=== PATIENT | female | born 1950 | race American Indian/Alaskan Native ===

== ENCOUNTER 2018-04-26 13:06 | Outpatient (CLI) | payer MEDICARE ==
--- NOTE | 2018-04-26 15:35 | Mammography Report ---
BILATERAL DIGITAL SCREENING MAMMOGRAM with CAD: 04/26/18 13:06:00 CLINICAL: Routine screening. COMPARISON:None available. FINDINGS: The breasts are heterogeneously dense, which may obscure small masses. No mass, architectural distortion or suspicious calcifications. IMPRESSION: No mammographic evidence of malignancy. BI-RADS CATEGORY: 1 - - Negative RECOMMENDATION: Routine mammographic screening in one year. COMMENT: Patient follow-up letters are generated by our [employer] application.
== END 2018-04-26 13:07 | disposition home or self-care (01) ==
LOC: MAMMO 13:06
PROVIDERS: ATTEND Internal Medicine
DX: Z12.31 Encounter for screening mammogram for malignant neoplasm of breast (principal)
CPT/HCPCS: 77067

== ENCOUNTER 2018-12-14 21:10 | Inpatient (IN) | payer MEDICARE ==
[2018-12-14] MEDS ORDERED: HumuLIN R IV ONE (21:27)
--- NOTE | 2018-12-14 21:34 | Emergency Department Report ---
- General Chief complaint: Hyperglycemia Stated complaint: HIGH BLOOD SUGAR Time Seen by Provider: 12/14/18 21:21 Source: patient, family, EMS Mode of arrival: Stretcher Limitations: Physical Limitation - History of Present Illness Initial comments: Ms. Godinez is a 68 yo female who presents with lethargy and poor appetite for one week. Hx of DM. Has not taken medications in one month. LIve in [facility] is bedside. He has noticed productive cough and increased beer imbibing. She denies pain. MD Complaint: generalized weakness, lack of energy -: Gradual, week(s) (1) Location: generalized Severity: severe Consistency: constant Improves with: none Worsens with: none Associated Symptoms: loss of appetite - Related Data Home Medications Medication Instructions Recorded Confirmed Last Taken No Known Home Medications [No 12/14/18 12/14/18 Unknown Reported Home Medications] Allergies Allergy/AdvReac Type Severity Reaction Status Date / Time No Known Allergies Allergy Verified 12/14/18 21:27 ED Review of Systems ROS: Stated complaint: HIGH BLOOD SUGAR Other details as noted in HPI Comment: All other systems reviewed and negative Constitutional: malaise Respiratory: cough ED Past Medical Hx - Past Medical History Previous Medical History?: Yes Hx Diabetes: Yes - Surgical History Past Surgical History?: No - Social History Smoking Status: Never Smoker Substance Use Type: Alcohol Other Social History: retired, - Medications Home Medications: Home Medications Medication Instructions Recorded Confirmed Last Taken Type No Known Home Medications [No 12/14/18 12/14/18 Unknown History Reported Home Medications] ED Physical Exam - General Limitations: Physical Limitation General appearance: lethargic (awake, slow to respond), other (kussmaul respirations evident) - Head Head exam: Present: atraumatic, normocephalic - Eye Eye exam: Present: normal appearance, PERRL - ENT ENT exam: Present: mucous membranes dry - Neck Neck exam: Present: normal inspection, full ROM - Respiratory Respiratory exam: Present: respiratory distress. Absent: wheezes, rales, rhonchi - Cardiovascular Cardiovascular Exam: Present: normal rhythm, tachycardia, normal heart sounds. Absent: systolic murmur, diastolic murmur, rubs, gallop - GI/Abdominal GI/Abdominal exam: Present: soft, normal bowel sounds. Absent: distended, tenderness, guarding, rebound - Extremities Exam Extremities exam: Present: normal inspection - Back Exam Back exam: Present: normal inspection - Neurological Exam Neurological exam: Present: oriented X3 - Psychiatric Psychiatric exam: Present: normal affect, normal mood - Skin Skin exam: Present: warm, dry, intact, normal color. Absent: rash ED Course Vital Signs 12/14/18 12/14/18 12/14/18 21:15 21:18 21:30 Pulse Rate 108 H 110 H 109 H Respiratory 18 20 21 Rate Blood Pressure 157/64 137/87 O2 Sat by Pulse 100 Oximetry ED Medical Decision Making - Lab Data Result diagrams: 12/14/18 21:26 12/14/18 21:26 - EKG Data 12/14/18 22:06 EKG obtained 2146 Sinus tachycardia rate 115 beats a minute normal axis severely prolonged QT interval no significant ST elevation - Radiology Data Radiology results: report reviewed AP portable chest one view according to radiology impression no acute process - Medical Decision Making Ms. Godinez presents with severe DKA complicated by medication noncompliance and alcohol use. Concern for hypokalemia and severely prolonged QT interval. I discussed case with hospitalist. Hospitalist physician Dr. Ray recommended potassium IV administration and by mouth potassium administration prior to initiation insulin drip Admitted in fair condition. Critical Care Time: Yes Critical care time in (mins) excluding proc time.: 40 Critical care attestation.: If time is entered above; I have spent that time in minutes in the direct care of this critically ill patient, excluding procedure time. 40 minutes of critical care time excluding procedures were used in the care of the patient. I came to the bedside immediately upon arrival. I consulted with parul at the bedside. I formed treatment plan with nurse at the bedside. Patient required multiple assessments and interventions. I reviewed the electronic medical record. I spoke with consultants involved in the care of the patient. ED Disposition Clinical Impression: Diabetic ketoacidosis, Hypokalemia, Prolonged QT interval Disposition: OP ADMIT IP TO THIS HOSP Is pt being admited?: Yes Does the pt Need Aspirin: No Condition: Stable
[2018-12-14] MEDS ORDERED: NACL 0.9% 1000 ML 1,000 ML IV ONE ×3 (21:35→22:47)
[2018-12-14 21:37] LABS: Basophils # (Auto) 0.1 K/mm3 (0.0-0.1); Basophils % (Auto) 0.5 % (0.0-1.8); Hematocrit 47.9 % (30.3-42.9); Hemoglobin 15.4 gm/dl (10.1-14.3); Lymphocytes # (Auto) 0.4 K/mm3 (1.2-5.4); Lymphocytes % (Auto) 2.6 % (13.4-35.0); Mean Corpuscular HGB Conc 32 % (30-34); Mean Corpuscular Volume 100 fl (79-97); Monocytes # (Auto) 1.5 K/mm3 (0.0-0.8); Monocytes % (Auto) 9.1 % (0.0-7.3); Platelet Count 238 K/mm3 (140-440); Red Blood Count 4.79 M/mm3 (3.65-5.03); Red Cell Distribution Width 13.9 % (13.2-15.2)
[2018-12-14 21:57] LABS: Calcium 10.1 mg/dL (8.4-10.2)
--- NOTE | 2018-12-14 21:59 | XRay Report ---
PROCEDURE: XR CHEST 1V AP TECHNIQUE: Chest radiograph single view. HISTORY: dyspnea COMPARISONS: None . FINDINGS: Heart: Normal. Mediastinum/Vessels: Normal. Lungs/Pleural space: Normal. Bony thorax: No acute osseous abnormality. Life support devices: None. IMPRESSION: No acute cardiopulmonary abnormality. This document is electronically signed by Ramiro Higuera MD., Dec 14 2018 09:57:12 PM ET
[2018-12-14] MEDS ORDERED: HumuLIN R 100 UNITS in NACL 0.9% 99 ML IV SCH (22:00)
[2018-12-14] MEDS ORDERED: K-DUR PO ONE (22:06)
[2018-12-14] MEDS: KCL 10MEQ/100ML 10 MEQ/100 ML BAG IV SCH ×2 (22:27→22:30)
[2018-12-14 22:34] LABS: Alanine Aminotransferase 23 units/L (7-56); Albumin 4.1 g/dL (3.9-5)
[2018-12-14 22:40] LABS: Bilirubin,Direct < 0.2 mg/dL (0-0.2)
[2018-12-14] MEDS ORDERED: SODIUM CHLORIDE FLUSH SYRINGE 10 ML IV PRN (22:46)
[2018-12-14] MEDS ORDERED: MORPHINE IV PRN (22:46)
[2018-12-14] MEDS ORDERED: REGLAN IV PRN ×2 (22:46→22:57)
[2018-12-14] MEDS ORDERED: ZOSYN/NS 4.5GM/100ML 4.5 GM/100 ML VIAL IV ONE (22:46)
[2018-12-14] MEDS ORDERED: TYLENOL PO PRN (22:46)
--- NOTE | 2018-12-14 23:41 | History and Physical Report ---
History of Present Illness Date of examination: 12/14/18 Date of admission: 12/14/18 22:46 Chief complaint: Poor appetite and generalized weakness History of present illness: Patient is a 68 year old -[place] female with history of DM2 and HTN with medication noncompliance who presented to the ED on account of 4 days history of poor appetite with generalized weakness. She denies abdominal pain, constipation, diarrhea, nausea, vomiting, dysuria or frequency. No chest pain, shortness of breath, palpitation, sore throat, runny nose or congestion, leg sw elling, orthopnea or PND. No headaches, lightheadedness, syncope or loss of consciousness. Patient stated that she stopped taking her diabetic medication about a month ago because her sugar went down. He also stopped taking her blood pressure medication about 2 weeks ago. Past History Past Medical History: diabetes, hypertension, other (LT breast cyst) Past Surgical History: tonsillectomy, Other (LT breast cyst removal ) Social history: other (patient has a remote history of cigarette smoking. She quit 30 years ago. She admits to occasional alcohol use but denies illicit drug use) Family history: no significant family history (reviewed and noncontributory) Medications and Allergies Allergies Allergy/AdvReac Type Severity Reaction Status Date / Time No Known Allergies Allergy Verified 12/14/18 21:27 Home Medications Medication Instructions Recorded Confirmed Last Taken Type No Known Home Medications [No 12/14/18 12/14/18 Unknown History Reported Home Medications] Active Meds: Active Medications Acetaminophen (Tylenol) 650 mg PO Q4H PRN PRN Reason: Pain MILD(1-3)/Fever >100.5/VILLALOBOS Enoxaparin Sodium (Lovenox) 40 mg SUB-Q QDAY EDGAR Famotidine (Pepcid) 10 mg IV BID EDGAR Potassium Chloride (Kcl 10meq/100ml) 10 meq in 100 mls @ 100 mls/hr IV Q1H EDGAR Stop: 12/15/18 02:59 Last Admin: 12/14/18 22:30 Dose: Not Given Documented by: Sodium Chloride (Nacl 0.9% 1000 Ml) 1,000 mls @ 999 mls/hr IV BOLUS ONE Stop: 12/14/18 23:47 Last Admin: 12/14/18 23:14 Dose: 999 mls/hr Documented by: Metoclopramide HCl (Reglan) 5 mg IV Q6H PRN PRN Reason: Nausea And Vomiting Morphine Sulfate (Morphine) 2 mg IV Q4H PRN PRN Reason: Pain, Moderate (4-6) Sodium Chloride (Sodium Chloride Flush Syringe 10 Ml) 10 ml IV BID EDGAR Sodium Chloride (Sodium Chloride Flush Syringe 10 Ml) 10 ml IV PRN PRN PRN Reason: LINE FLUSH Review of Systems All systems: negative (except as documented in the HPI, all other systems were reviewed and negative) Exam - Constitutional Vitals: Temp Pulse Resp BP Pulse Ox 107 H 22 138/106 100 12/14/18 23:30 12/14/18 23:30 12/14/18 23:30 12/14/18 21:15 General appearance: Present: no acute distress, cachectic, other (ill-looking) - EENT Eyes: Present: PERRL, EOM intact ENT: hearing intact, clear oral mucosa - Neck Neck: Present: supple, normal ROM - Respiratory Respiratory effort: normal Respiratory: bilateral: CTA - Cardiovascular Rhythm: regular (with tachycardia) Heart Sounds: Present: S1 & S2. Absent: rub, click - Extremities Extremities: pulses symmetrical, No edema Peripheral Pulses: within normal limits - Abdominal General gastrointestinal: Present: soft, non-tender, non-distended, normal bowel sounds Female genitourinary: Present: deferred - Integumentary Integumentary: Present: clear, warm, dry - Musculoskeletal Musculoskeletal: generalized weakness - Psychiatric Psychiatric: appropriate mood/affect, intact judgment & insight - Neurologic Neurologic: CNII-XII intact, moves all extremities Results - Labs CBC & Chem 7: 12/14/18 21:26 12/14/18 21:26 Labs: Laboratory Last Values WBC 16.1 K/mm3 (4.5-11.0) H 12/14/18 21:26 RBC 4.79 M/mm3 (3.65-5.03) 12/14/18 21:26 Hgb 15.4 gm/dl (10.1-14.3) H 12/14/18 21:26 Hct 47.9 % (30.3-42.9) H 12/14/18 21:26 MCV 100 fl (79-97) H 12/14/18 21:26 MCH 32 pg (28-32) 12/14/18 21:26 MCHC 32 % (30-34) 12/14/18 21:26 RDW 13.9 % (13.2-15.2) 12/14/18 21:26 Plt Count 238 K/mm3 (140-440) 12/14/18 21:26 Lymph % (Auto) 2.6 % (13.4-35.0) L 12/14/18 21:26 [place]ount % (Auto) 9.1 % (0.0-7.3) H 12/14/18 21:26 Eos % (Auto) 0.0 % (0.0-4.3) 12/14/18 21:26 Baso % (Auto) 0.5 % (0.0-1.8) 12/14/18 21:26 Lymph # 0.4 K/mm3 (1.2-5.4) L 12/14/18 21:26 Blount # 1.5 K/mm3 (0.0-0.8) H 12/14/18 21:26 Eos # 0.0 K/mm3 (0.0-0.4) 12/14/18 21:26 Baso # 0.1 K/mm3 (0.0-0.1) 12/14/18 21:26 Seg Neutrophils % 87.8 % (40.0-70.0) H 12/14/18 21: Seg Neutrophils # 14.1 K/mm3 (1.8-7.7) H 12/14/18 21:26 VBG pH 7.041 (7.320-7.420) L* 12/14/18 21:28 Sodium 136 mmol/L (137-145) L 12/14/18 21:26 Potassium 2.9 mmol/L (3.6-5.0) L* 12/14/18 21:26 Chloride 86.4 mmol/L (98-107) L 12/14/18 21:26 Carbon Dioxide 5 mmol/L (22-30) L* 12/14/18 21:26 48 mmol/L 12/14/18 21:26 BUN 15 mg/dL (7-17) 12/14/18 21:26 1.2 mg/dL (0.7-1.2) 12/14/18 21:26 Estimated GFR 54 ml/min 12/14/18 21:26 13 % 12/14/18 21:26 Glucose 603 mg/dL (65-100) H* 12/14/18 21:26 POC Glucose 460 (70-105) H 12/14/18 21:30 Lactic Acid 5.10 mmol/L (0.7-2.0) H* 12/14/18 21:46 Calcium 10.1 mg/dL (8.4-10.2) 12/14/18 21:26 Phosphorus 5.00 mg/dL (2.5-4.5) H 12/14/18 21:26 Magnesium 2.10 mg/dL (1.7-2.3) 12/14/18 21:26 0.40 mg/dL (0.1-1.2) 12/14/18 21:26 < 0.2 mg/dL (0-0.2) 12/14/18 21:26 0.2 mg/dL 12/14/18 21:26 AST 28 units/L (5-40) 12/14/18 21:26 ALT 23 units/L (7-56) 12/14/18 21:26 152 units/L (35-129) H 12/14/18 21:26 < 0.010 ng/mL (0.00-0.029) 12/14/18 21:26 7.3 g/dL (6.3-8.2) 12/14/18 21:26 4.1 g/dL (3.9-5) 12/14/18 21:26 1.3 % 12/14/18 21:26 32 units/L (13-60) 12/14/18 21:26 Plasma/Serum Alcohol < 0.01 % (0-0.07) 12/14/18 21:26 Assessment and Plan Assessment and plan: DKA in type 2 DM -Admit to the ICU on DKA protocol -Hemoglobin A1c level pending SIRS with lactic acidosis -Exact source of infection unknown -Urinalysis, urine and blood cultures pending -On empiric IV antibiotic with Rocephin Hypokalemia -On repletion, will monitor level Hyperphosphatemia -On IV fluid, will monitor level HTN -Uncontrolled -On antihypertensives, adjust as needed Severe malnutrition evidenced by poor oral intake and BMI of 15.8 -Dietitian consulted Medication noncompliance -Patient counseled DVT prophylaxis with Lovenox and GI prophylaxis with famotidine I spent 45 minutes providing critical care to this seriously ill patient who requires frequent reassessments of her metabolic profile.
[2018-12-14] MEDS ORDERED: D50W (25GM) Syringe IV PRN (23:44)
[2018-12-15] MEDS: KCL 10MEQ/100ML 10 MEQ/100 ML BAG IV SCH ×6 (00:14→23:58)
[2018-12-15] MEDS ORDERED: APRESOLINE IV PRN (00:21)
[2018-12-15 00:34] LABS: Calcium 8.8 mg/dL (8.4-10.2)
[2018-12-15] MEDS: LOPRESSOR PO SCH ×3 (01:31→21:15)
[2018-12-15 05:50] LABS: Basophils # (Auto) 0.1 K/mm3 (0.0-0.1); Basophils % (Auto) 0.8 % (0.0-1.8); Hematocrit 39.9 % (30.3-42.9); Lymphocytes % (Auto) 6.7 % (13.4-35.0); Mean Corpuscular HGB Conc 33 % (30-34); Mean Corpuscular Volume 98 fl (79-97); Monocytes # (Auto) 1.3 K/mm3 (0.0-0.8); Monocytes % (Auto) 8.4 % (0.0-7.3); Platelet Count 170 K/mm3 (140-440); Red Blood Count 4.07 M/mm3 (3.65-5.03)
[2018-12-15 06:10] LABS: BUN/Creatinine Ratio 12; Blood Urea Nitrogen 12 mg/dL (7-17); Calcium 8.7 mg/dL (8.4-10.2); Hemolysis Index 7
[2018-12-15] MEDS ORDERED: HumuLIN R 100 UNITS in NACL 0.9% 99 ML IV SCH ×2 (07:00→13:00)
[2018-12-15] MEDS ORDERED: NACL 0.9% 1000 ML 1,000 ML IV SCH (07:00)
--- NOTE | 2018-12-15 07:45 | Progress Note ---
Assessment and Plan Assessment and plan: Patient is a 68 yo woman with a history of DM2 and hypertension who presented to [facility] ED with generalized weakness. DKA in type 2 DM -Admit to the ICU on DKA protocol -Hemoglobin A1c level-->17.0 Uncontrolled type 2 DM, now IDDM -report of not taking DM for weeks -counseling on compliance SIRS without organ dysfunction, poa -Exact source of infection unknown -Urinalysis, urine and blood cultures pending -On empiric IV antibiotic with Rocephin Hypokalemia -Replete, will monitor level closely Hypophosphatemia -On IV fluids, will monitor level HTN -Uncontrolled -On antihypertensives, adjust as needed Severe malnutrition evidenced by poor oral intake and BMI of 15.2 -Dietitian consulted Medication noncompliance -Patient counseled Metabolic acidosis -treat the DKA DVT prophylaxis with Lovenox and GI prophylaxis with famotidine CCT 31 minutes History Interval history: Patient was seen and examined. Follow-up on current diagnosis on DKA. No overnight events reported to me. Patient denies any chest pain, shortness too th, nausea/vomiting or severe headaches. Imaging, nursing note, chart, labs and old chart reviewed. Discussed with patient. Hospitalist Physical - Physical exam Narrative exam: Gen: WDWN, NAD, Awake, Alert, Orientated HEENT: NCAT, EOMI, PERRL, OP Clear Neck: supple, no adenopathy, no thyromegaly, no JVD CVS/Heart: RRR, normal S1S2, pulses present bilaterally Chest/Lungs: CTA B, Symmetrical chest expansion, good air entry bilaterally GI/Abdomen: soft, NTND, good bowel sounds, no guarding or rebound /Bladder: no suprapubic tenderness, no CVA or paraspinal tenderness Extermity/Skin: no c/c/e, no obvious rash MSK: FROM x 4 Neuro: CN 2-12 grossly intact, no new focal deficits Psych: calm - Constitutional Vitals: Temp Pulse Resp BP Pulse Ox 97.5 F L 91 H 15 121/71 100 12/15/18 02:56 12/15/18 05:00 12/15/18 05:00 12/15/18 05:00 12/15/18 05:00 General appearance: Present: no acute distress, cachectic, other (ill-looking) Results - Labs CBC & Chem 7: 12/15/18 05:28 12/15/18 05:28 Labs: Laboratory Last Values WBC 15.2 K/mm3 (4.5-11.0) H 12/15/18 05:28 RBC 4.07 M/mm3 (3.65-5.03) 12/15/18 05:28 Hgb 13.0 gm/dl (10.1-14.3) 12/15/18 05:28 Hct 39.9 % (30.3-42.9) D 12/15/18 05:28 MCV 98 fl (79-97) H 12/15/18 05:28 MCH 32 pg (28-32) 12/15/18 05:28 MCHC 33 % (30-34) 12/15/18 05:28 RDW 13.0 % (13.2-15.2) L 12/15/18 05:28 Plt Count 170 K/mm3 (140-440) 12/15/18 05:28 Lymph % (Auto) 6.7 % (13.4-35.0) L 12/15/18 05:28 [place] % (Auto) 8.4 % (0.0-7.3) H 12/15/18 05:28 Eos % (Auto) 0.0 % (0.0-4.3) 12/15/18 05:28 Baso % (Auto) 0.8 % (0.0-1.8) 12/15/18 05:28 Lymph # 1.0 K/mm3 (1.2-5.4) L 12/15/18 05:28 [place] # 1.3 K/mm3 (0.0-0.8) H 12/15/18 05:28 Eos # 0.0 K/mm3 (0.0-0.4) 12/15/18 05:28 Baso # 0.1 K/mm3 (0.0-0.1) 12/15/18 05:28 Seg Neutrophils % 84.1 % (40.0-70.0) H 12/15/18 05:28 Seg Neutrophils # 12.8 K/mm3 (1.8-7.7) H 12/15/18 05:28 VBG pH 7.041 (7.320-7.420) L* 12/14/18 21:28 Sodium 140 mmol/L (137-145) 12/15/18 05:28 Potassium 3.6 mmol/L (3.6-5.0) D 12/15/18 05:28 Chloride 103.9 mmol/L (98-107) 12/15/18 05:28 Carbon Dioxide 8 mmol/L (22-30) L* 12/15/18 05:28 32 mmol/L 12/15/18 05:28 BUN 12 mg/dL (7-17) 12/15/18 05:28 1.0 mg/dL (0.7-1.2) 12/15/18 05:28 Estimated GFR > 60 ml/min 12/15/18 05:28 12 % 12/15/18 05:28 Glucose 390 mg/dL (65-100) H 12/15/18 05:28 POC Glucose 400 (70-105) H 12/15/18 06:14 17.0 % (4-6) H 12/15/18 05:28 Lactic Acid 2.00 mmol/L (0.7-2.0) 12/15/18 05:28 Calcium 8.7 mg/dL (8.4-10.2) 12/15/18 05:28 Phosphorus 1.50 mg/dL (2.5-4.5) L D 12/15/18 05:28 Magnesium 2.10 mg/dL (1.7-2.3) 12/14/18 21:26 0.40 mg/dL (0.1-1.2) 12/14/18 21:26 < 0.2 mg/dL (0-0.2) 12/14/18 21:26 0.2 mg/dL 12/14/18 21:26 AST 28 units/L (5-40) 12/14/18 21:26 ALT 23 units/L (7-56) 12/14/18 21:26 152 units/L (35-129) H 12/14/18 21:26 < 0.010 ng/mL (0.00-0.029) 12/14/18 21:26 7.3 g/dL (6.3-8.2) 12/14/18 21:26 4.1 g/dL (3.9-5) 12/14/18 21:26 1.3 % 12/14/18 21:26 32 units/L (13-60) 12/14/18 21:26 Plasma/Serum Alcohol < 0.01 % (0-0.07) 12/14/18 21:26 Active Medications - Current Medications Current Medications: Generic Name Dose Route Start Last Admin Trade Name Freq PRN Reason Stop Dose Admin Acetaminophen 650 mg 12/14/18 22:46 Tylenol PO Q4H PRN Pain MILD(1-3)/Fever >100.5/VILLALOBOS Dextrose 0 ml 12/14/18 23:44 D50w (25gm) Syringe IV PRN PRN Hypoglycemia Enoxaparin Sodium 40 mg 12/15/18 10:00 Lovenox SUB-Q QDAY [facility] Famotidine 10 mg 12/15/18 10:00 Pepcid IV BID EDGAR Hydralazine HCl 10 mg 12/15/18 00:21 Apresoline IV Q4HR PRN Blood Pressure Ceftriaxone Sodium 1 gm in 50 mls @ 100 mls/hr 12/15/18 10:00 Rocephin/Ns 1 Gm/50 Ml IV Q24HR EDGAR Protocol Insulin Human Regular 100 100 mls @ 1 mls/hr 12/15/18 07:00 units/ Sodium Chloride IV TITR EDGAR Protocol 1 UNITS/HR Sodium Chloride 1,000 mls @ 150 mls/hr 12/15/18 07:00 12/15/18 07:26 Nacl 0.9% 1000 Ml IV 150 mls/hr DIRECT EDGAR Administration Metoclopramide HCl 5 mg 12/14/18 22:57 Reglan IV Q6H PRN Nausea And Vomiting Metoprolol Tartrate 25 mg 12/15/18 01:00 12/15/18 01:31 Lopressor PO Not Given BID EDGAR Morphine Sulfate 2 mg 12/14/18 22:46 Morphine IV Q4H PRN Pain, Moderate (4-6) Sodium Chloride 10 ml 12/15/18 10:00 Sodium Chloride Flush Syringe 10 Ml IV BID EDGAR Sodium Chloride 10 ml 12/14/18 22:46 Sodium Chloride Flush Syringe 10 Ml IV PRN PRN LINE FLUSH
[2018-12-15 07:54] LABS: BUN/Creatinine Ratio 12; Blood Urea Nitrogen 11 mg/dL (7-17); Calcium 8.5 mg/dL (8.4-10.2); Hemolysis Index 14
[2018-12-15] MEDS: PEPCID IV SCH ×2 (10:20→21:45)
[2018-12-15] MEDS: SODIUM CHLORIDE FLUSH SYRINGE 10 ML IV SCH ×2 (10:20→21:45)
[2018-12-15] MEDS: LOVENOX SUB-Q SCH (10:55)
[2018-12-15] MEDS: ROCEPHIN/NS 1 GM/50 ML 1 GM/50 ML BAG IV SCH (10:55)
[2018-12-15] MEDS ORDERED: D50W (25GM) Syringe IV PRN ×2 (12:01→23:41)
[2018-12-15] MEDS ORDERED: D5W/0.45% NACL/KCL 20 MEQ 20 MEQ/1,000 ML BAG IV SCH (13:00)
[2018-12-15 13:34] LABS: BUN/Creatinine Ratio 11; Blood Urea Nitrogen 10 mg/dL (7-17); Calcium 8.8 mg/dL (8.4-10.2); Hemolysis Index 26
--- NOTE | 2018-12-15 15:12 | Consultation ---
History of Present Illness - Reason for Consult Consult date: 12/15/18 DKA Requesting physician: ELISEO RENEE - History of Present Illness 68 y/o female with known diabetes presents with generalized weakness. Patient was found to be in DKA with anion Gap in the 40's. Started on insulin drip and admitted to ICU. Kept NPO. Today, patient feels somewhat better. Admits to not taking her insulin as she should. No family at bedside. Remainder is negative. Past History Past Medical History: diabetes, hypertension, other (LT breast cyst) Past Surgical History: tonsillectomy, Other (LT breast cyst removal ) Social history: other (patient has a remote history of cigarette smoking. She quit 30 years ago. She admits to occasional alcohol use but denies illicit drug use) Family history: no significant family history (reviewed and noncontributory) Medications and Allergies Allergies Allergy/AdvReac Type Severity Reaction Status Date / Time No Known Allergies Allergy Verified 12/14/18 21:27 Home Medications Medication Instructions Recorded Confirmed Last Taken Type No Known Home Medications [No 12/14/18 12/14/18 Unknown History Reported Home Medications] Active Meds: Active Medications Acetaminophen (Tylenol) 650 mg PO Q4H PRN PRN Reason: Pain MILD(1-3)/Fever >100.5/VILLALOBOS Dextrose (D50w (25gm) Syringe) 0 ml IV PRN PRN PRN Reason: Hypoglycemia Enoxaparin Sodium (Lovenox) 40 mg SUB-Q QDAY [facility] Last Admin: 12/15/18 10:55 Dose: 40 mg Documented by: Famotidine (Pepcid) 10 mg IV BID [facility] Last Admin: 12/15/18 10:20 Dose: 10 mg Documented by: Hydralazine HCl (Apresoline) 10 mg IV Q4HR PRN PRN Reason: Blood Pressure Ceftriaxone Sodium (Rocephin/Ns 1 Gm/50 Ml) 1 gm in 50 mls @ 100 mls/hr IV Q24HR [facility]; Protocol Last Admin: 12/15/18 10:55 Dose: 100 mls/hr Documented by: Insulin Human Regular 100 (units/ Sodium Chloride) 100 mls @ 1 mls/hr IV TITR [facility]; Protocol Potassium Chloride/Dextrose/Sod Cl (D5w/0.45% Nacl/Kcl 20 Meq) 20 meq in 1,000 mls @ 125 mls/hr IV DIRECT [facility] Metoclopramide HCl (Reglan) 5 mg IV Q6H PRN PRN Reason: Nausea And Vomiting Metoprolol Tartrate (Lopressor) 25 mg PO BID [facility] Last Admin: 12/15/18 10:15 Dose: Not Given Documented by: Morphine Sulfate (Morphine) 2 mg IV Q4H PRN PRN Reason: Pain, Moderate (4-6) Sodium Chloride (Sodium Chloride Flush Syringe 10 Ml) 10 ml IV BID [facility] Last Admin: 12/15/18 10:20 Dose: 10 ml Documented by: Sodium Chloride (Sodium Chloride Flush Syringe 10 Ml) 10 ml IV PRN PRN PRN Reason: LINE FLUSH Review of Systems All systems: negative Exam - Constitutional Vitals: Temp Pulse Resp BP Pulse Ox 97.8 F 100 H 15 110/69 100 12/15/18 12:00 12/15/18 10:15 12/15/18 05:00 12/15/18 10:15 12/15/18 05:00 General appearance: Present: no acute distress, cachectic, disheveled - EENT Eyes: Present: PERRL, EOM intact ENT: hearing intact - Neck Neck: Present: supple, normal ROM - Respiratory Respiratory effort: normal Respiratory: bilateral: CTA - Cardiovascular Rhythm: regular Heart Sounds: Present: S1 & S2 - Extremities Extremities: no ischemia, pulses intact, pulses symmetrical - Abdominal General gastrointestinal: Present: soft, non-tender - Rectal Rectal Exam: deferred - Integumentary Integumentary: Present: dry Results - Labs CBC & Chem 7: 12/15/18 05:28 12/16/18 04:51 Labs: Abnormal lab results 12/14/18 12/14/18 12/14/18 Range/Units 21:26 21:26 21:26 WBC 16.1 H (4.5-11.0) K/mm3 Hgb 15.4 H (10.1-14.3) gm/dl Hct 47.9 H (30.3-42.9) % MCV 100 H (79-97) fl RDW (13.2-15.2) % Lymph % (Auto) 2.6 L (13.4-35.0) % [place] % (Auto) 9.1 H (0.0-7.3) % Lymph # 0.4 L (1.2-5.4) K/mm3 [place] # 1.5 H (0.0-0.8) K/mm3 Seg Neutrophils % 87.8 H (40.0-70.0) % Seg Neutrophils # 14.1 H (1.8-7.7) K/mm3 VBG pH (7.320-7.420) Sodium 136 L (137-145) mmol/L Potassium 2.9 L* (3.6-5.0) mmol/L Chloride 86.4 L (98-107) mmol/L Carbon Dioxide 5 L* (22-30) mmol/L Glucose 603 H* (65-100) mg/dL POC Glucose (70-105) Hemoglobin A1c (4-6) % Lactic Acid (0.7-2.0) mmol/L Phosphorus 5.00 H (2.5-4.5) mg/dL Magnesium (1.7-2.3) mg/dL Alkaline Phosphatase 152 H (35-129) units/L 12/14/18 12/14/18 12/14/18 Range/Units 21:28 21:30 21:46 WBC (4.5-11.0) K/mm3 Hgb (10.1-14.3) gm/dl Hct (30.3-42.9) % MCV (79-97) fl RDW (13.2-15.2) % Lymph % (Auto) (13.4-35.0) % [place] % (Auto) (0.0-7.3) % Lymph # (1.2-5.4) K/mm3 [place] # (0.0-0.8) K/mm3 Seg Neutrophils % (40.0-70.0) % Seg Neutrophils # (1.8-7.7) K/mm3 VBG pH 7.041 L* (7.320-7.420) Sodium (137-145) mmol/L Potassium (3.6-5.0) mmol/L Chloride (98-107) mmol/L Carbon Dioxide (22-30) mmol/L Glucose (65-100) mg/dL POC Glucose 460 H (70-105) Hemoglobin A1c (4-6) % Lactic Acid 5.10 H* (0.7-2.0) mmol/L Phosphorus (2.5-4.5) mg/dL Magnesium (1.7-2.3) mg/dL Alkaline Phosphatase (35-129) units/L 12/14/18 12/15/18 12/15/18 Range/Units 23:04 00:06 00:11 WBC (4.5-11.0) K/mm3 Hgb (10.1-14.3) gm/dl Hct (30.3-42.9) % MCV (79-97) fl RDW (13.2-15.2) % Lymph % (Auto) (13.4-35.0) % [place] % (Auto) (0.0-7.3) % Lymph # (1.2-5.4) K/mm3 [place] # (0.0-0.8) K/mm3 Seg Neutrophils % (40.0-70.0) % Seg Neutrophils # (1.8-7.7) K/mm3 VBG pH (7.320-7.420) Sodium (137-145) mmol/L Potassium 2.8 L* (3.6-5.0) mmol/L Chloride 94.6 L (98-107) mmol/L Carbon Dioxide 6 L* (22-30) mmol/L Glucose 482 H (65-100) mg/dL POC Glucose 405 H (70-105) Hemoglobin A1c (4-6) % Lactic Acid 3.90 H* (0.7-2.0) mmol/L Phosphorus (2.5-4.5) mg/dL Magnesium (1.7-2.3) mg/dL Alkaline Phosphatase (35-129) units/L 12/15/18 12/15/18 12/15/18 Range/Units 01:00 02:27 04:12 WBC (4.5-11.0) K/mm3 Hgb (10.1-14.3) gm/dl Hct (30.3-42.9) % MCV (79-97) fl RDW (13.2-15.2) % Lymph % (Auto) (13.4-35.0) % [place] % (Auto) (0.0-7.3) % Lymph # (1.2-5.4) K/mm3 [place] # (0.0-0.8) K/mm3 Seg Neutrophils % (40.0-70.0) % Seg Neutrophils # (1.8-7.7) K/mm3 VBG pH (7.320-7.420) Sodium (137-145) mmol/L Potassium (3.6-5.0) mmol/L Chloride (98-107) mmol/L Carbon Dioxide (22-30) mmol/L Glucose (65-100) mg/dL POC Glucose 432 H 331 H 339 H (70-105) Hemoglobin A1c (4-6) % Lactic Acid (0.7-2.0) mmol/L Phosphorus (2.5-4.5) mg/dL Magnesium (1.7-2.3) mg/dL Alkaline Phosphatase (35-129) units/L 12/15/18 12/15/18 12/15/18 Range/Units 04:59 05:28 05:28 WBC 15.2 H (4.5-11.0) K/mm3 Hgb (10.1-14.3) gm/dl Hct (30.3-42.9) % MCV 98 H (79-97) fl RDW 13.0 L (13.2-15.2) % Lymph % (Auto) 6.7 L (13.4-35.0) % [place] % (Auto) 8.4 H (0.0-7.3) % Lymph # 1.0 L (1.2-5.4) K/mm3 [place] # 1.3 H (0.0-0.8) K/mm3 Seg Neutrophils % 84.1 H (40.0-70.0) % Seg Neutrophils # 12.8 H (1.8-7.7) K/mm3 VBG pH (7.320-7.420) Sodium (137-145) mmol/L Potassium (3.6-5.0) mmol/L Chloride (98-107) mmol/L Carbon Dioxide (22-30) mmol/L Glucose (65-100) mg/dL POC Glucose 367 H (70-105) Hemoglobin A1c (4-6) % Lactic Acid (0.7-2.0) mmol/L Phosphorus 1.50 L D (2.5-4.5) mg/dL Magnesium (1.7-2.3) mg/dL Alkaline Phosphatase (35-129) units/L 12/15/18 12/15/18 12/15/18 Range/Units 05:28 05:28 06:14 WBC (4.5-11.0) K/mm3 Hgb (10.1-14.3) gm/dl Hct (30.3-42.9) % MCV (79-97) fl RDW (13.2-15.2) % Lymph % (Auto) (13.4-35.0) % [place] % (Auto) (0.0-7.3) % Lymph # (1.2-5.4) K/mm3 [place] # (0.0-0.8) K/mm3 Seg Neutrophils % (40.0-70.0) % Seg Neutrophils # (1.8-7.7) K/mm3 VBG pH (7.320-7.420) Sodium (137-145) mmol/L Potassium (3.6-5.0) mmol/L Chloride (98-107) mmol/L Carbon Dioxide 8 L* (22-30) mmol/L Glucose 390 H (65-100) mg/dL POC Glucose 400 H (70-105) Hemoglobin A1c 17.0 H (4-6) % Lactic Acid (0.7-2.0) mmol/L Phosphorus (2.5-4.5) mg/dL Magnesium (1.7-2.3) mg/dL Alkaline Phosphatase (35-129) units/L 12/15/18 12/15/18 12/15/18 Range/Units 07:20 07:20 07:22 WBC (4.5-11.0) K/mm3 Hgb (10.1-14.3) gm/dl Hct (30.3-42.9) % MCV (79-97) fl RDW (13.2-15.2) % Lymph % (Auto) (13.4-35.0) % [place] % (Auto) (0.0-7.3) % Lymph # (1.2-5.4) K/mm3 [place] # (0.0-0.8) K/mm3 Seg Neutrophils % (40.0-70.0) % Seg Neutrophils # (1.8-7.7) K/mm3 VBG pH (7.320-7.420) Sodium (137-145) mmol/L Potassium (3.6-5.0) mmol/L Chloride (98-107) mmol/L Carbon Dioxide 6 L* (22-30) mmol/L Glucose 379 H (65-100) mg/dL POC Glucose 326 H (70-105) Hemoglobin A1c (4-6) % Lactic Acid (0.7-2.0) mmol/L Phosphorus 1.20 L (2.5-4.5) mg/dL Magnesium 1.60 L (1.7-2.3) mg/dL Alkaline Phosphatase (35-129) units/L 12/15/18 12/15/18 12/15/18 Range/Units 08:11 09:22 10:17 WBC (4.5-11.0) K/mm3 Hgb (10.1-14.3) gm/dl Hct (30.3-42.9) % MCV (79-97) fl RDW (13.2-15.2) % Lymph % (Auto) (13.4-35.0) % [place] % (Auto) (0.0-7.3) % Lymph # (1.2-5.4) K/mm3 [place] # (0.0-0.8) K/mm3 Seg Neutrophils % (40.0-70.0) % Seg Neutrophils # (1.8-7.7) K/mm3 VBG pH (7.320-7.420) Sodium (137-145) mmol/L Potassium (3.6-5.0) mmol/L Chloride (98-107) mmol/L Carbon Dioxide (22-30) mmol/L Glucose (65-100) mg/dL POC Glucose 339 H 292 H 299 H (70-105) Hemoglobin A1c (4-6) % Lactic Acid (0.7-2.0) mmol/L Phosphorus (2.5-4.5) mg/dL Magnesium (1.7-2.3) mg/dL Alkaline Phosphatase (35-129) units/L 12/15/18 12/15/18 12/15/18 Range/Units 11:48 12:13 12:13 WBC (4.5-11.0) K/mm3 Hgb (10.1-14.3) gm/dl Hct (30.3-42.9) % MCV (79-97) fl RDW (13.2-15.2) % Lymph % (Auto) (13.4-35.0) % [place] % (Auto) (0.0-7.3) % Lymph # (1.2-5.4) K/mm3 [place] # (0.0-0.8) K/mm3 Seg Neutrophils % (40.0-70.0) % Seg Neutrophils # (1.8-7.7) K/mm3 VBG pH (7.320-7.420) Sodium 146 H (137-145) mmol/L Potassium 3.0 L (3.6-5.0) mmol/L Chloride 110.8 H (98-107) mmol/L Carbon Dioxide 11 L (22-30) mmol/L Glucose 193 H (65-100) mg/dL POC Glucose 223 H (70-105) Hemoglobin A1c (4-6) % Lactic Acid (0.7-2.0) mmol/L Phosphorus 0.50 L* D (2.5-4.5) mg/dL Magnesium (1.7-2.3) mg/dL Alkaline Phosphatase (35-129) units/L 12/15/18 Range/Units 13:22 WBC (4.5-11.0) K/mm3 Hgb (10.1-14.3) gm/dl Hct (30.3-42.9) % MCV (79-97) fl RDW (13.2-15.2) % Lymph % (Auto) (13.4-35.0) % [place] % (Auto) (0.0-7.3) % Lymph # (1.2-5.4) K/mm3 [place] # (0.0-0.8) K/mm3 Seg Neutrophils % (40.0-70.0) % Seg Neutrophils # (1.8-7.7) K/mm3 VBG pH (7.320-7.420) Sodium (137-145) mmol/L Potassium (3.6-5.0) mmol/L Chloride (98-107) mmol/L Carbon Dioxide (22-30) mmol/L Glucose (65-100) mg/dL POC Glucose 183 H (70-105) Hemoglobin A1c (4-6) % Lactic Acid (0.7-2.0) mmol/L Phosphorus (2.5-4.5) mg/dL Magnesium (1.7-2.3) mg/dL Alkaline Phosphatase (35-129) units/L - Imaging and Cardiology Chest x-ray: image reviewed (questionable hyperinflation but otherwise clear) Assessment and Plan 68 y/o female with DKA 1. COntinue NPO 2. Continue Insulin drip until Anion Gap closes 3. ONce sugar is below 250, switch IVF's to D5W with k 4. Serial chemistries q 6hour for the next 24 hours 5. Needs diabetic education and counseling CCT 31 minutes.
[2018-12-15 15:53] LABS: BUN/Creatinine Ratio 13; Blood Urea Nitrogen 10 mg/dL (7-17); Calcium 8.8 mg/dL (8.4-10.2); Hemolysis Index 93
[2018-12-15 18:17] LABS: BUN/Creatinine Ratio 13; Blood Urea Nitrogen 10 mg/dL (7-17); Calcium 8.9 mg/dL (8.4-10.2); Hemolysis Index 15
[2018-12-15] MEDS ORDERED: KCL 20 MEQ in D5W 1,000 ML IV SCH (20:00)
[2018-12-15 20:17] LABS: BUN/Creatinine Ratio 11; Blood Urea Nitrogen 9 mg/dL (7-17); Calcium 8.2 mg/dL (8.4-10.2); Hemolysis Index 42
[2018-12-15 23:46] LABS: BUN/Creatinine Ratio 10; Blood Urea Nitrogen 8 mg/dL (7-17); Calcium 8.6 mg/dL (8.4-10.2); Hemolysis Index 10
[2018-12-16] MEDS ORDERED: HumaLOG SUB-Q SCH
[2018-12-16] MEDS ORDERED: NACL 0.9% 1000 ML 1,000 ML IV SCH (01:00)
[2018-12-16] MEDS: KCL 10MEQ/100ML 10 MEQ/100 ML BAG IV SCH (01:24)
[2018-12-16] MEDS: HumuLIN R 100 UNITS in NACL 0.9% 99 ML IV SCH ×4 (01:33→05:38)
[2018-12-16 05:35] LABS: BUN/Creatinine Ratio 10; Blood Urea Nitrogen 7 mg/dL (7-17); Calcium 9.1 mg/dL (8.4-10.2); Hemolysis Index 46
[2018-12-16] MEDS ORDERED: MAGNESIUM SULFATE 2GM/50ML 2 GM/50 ML BAG IV ONE ×2 (06:20→10:00)
[2018-12-16] MEDS ORDERED: K-PHOS NEUTRAL PO ONE (06:26)
[2018-12-16] MEDS: D5W/0.45% NACL/KCL 20 MEQ 20 MEQ/1,000 ML BAG IV SCH (09:13)
[2018-12-16] MEDS ORDERED: K-DUR PO ONE (10:00)
[2018-12-16] MEDS: LOPRESSOR PO SCH (11:56)
[2018-12-16] MEDS: ROCEPHIN/NS 1 GM/50 ML 1 GM/50 ML BAG IV SCH (11:57)
[2018-12-16] MEDS: LOVENOX SUB-Q SCH (11:58)
[2018-12-16] MEDS: PEPCID IV SCH (11:59)
--- NOTE | 2018-12-16 13:06 | Progress Note ---
Assessment and Plan 68 y/o female with DKA 1. COntinue NPO 2. Continue Insulin drip until Anion Gap closes 3. will increase the rate on the D5W to 175 4. Serial chemistries q 6hour for the next 24 hours, reordered given that gap has not closed 5. Needs diabetic education and counseling CCT 31 minutes. Subjective Date of service: 12/16/18 Interval history: No acute events. Rate was not increased on fluid as I ordered yesterday with the prior day nurse. Insulin drip off about an hour secondary to low blood sugars. Patient currently asleep. AG 24 this am. Objective - Constitutional Vitals: Vital Signs - 12hr 12/16/18 12/16/18 12/16/18 01:10 01:20 01:30 Temperature Pulse Rate 78 78 79 Pulse Rate [ From Monitor] Pulse Rate [ Right Radial] Respiratory 12 12 14 Rate Blood Pressure 117/70 117/70 117/70 O2 Sat by Pulse 100 100 100 Oximetry 12/16/18 12/16/18 12/16/18 01:40 01:50 02:00 Temperature Pulse Rate 79 79 83 Pulse Rate [ From Monitor] Pulse Rate [ Right Radial] Respiratory 16 12 9 L Rate Blood Pressure 117/70 117/70 102/62 O2 Sat by Pulse 100 100 100 Oximetry 12/16/18 12/16/18 12/16/18 02:10 02:20 02:30 Temperature Pulse Rate 77 76 73 Pulse Rate [ From Monitor] Pulse Rate [ Right Radial] Respiratory 9 L 10 L 12 Rate Blood Pressure 102/62 102/62 102/62 O2 Sat by Pulse 100 100 100 Oximetry 12/16/18 12/16/18 12/16/18 02:40 02:50 03:00 Temperature Pulse Rate 76 76 75 Pulse Rate [ From Monitor] Pulse Rate [ Right Radial] Respiratory 11 L 11 L 12 Rate Blood Pressure 102/62 102/62 78/50 O2 Sat by Pulse 100 100 99 Oximetry 12/16/18 12/16/18 12/16/18 03:10 03:20 03:30 Temperature Pulse Rate 81 80 82 Pulse Rate [ From Monitor] Pulse Rate [ Right Radial] Respiratory 12 12 12 Rate Blood Pressure 91/60 91/60 91/60 O2 Sat by Pulse 100 100 99 Oximetry 12/16/18 12/16/18 12/16/18 03:40 03:50 04:00 Temperature 98.4 F Pulse Rate 80 80 72 Pulse Rate [ 86 From Monitor] Pulse Rate [ 86 Right Radial] Respiratory 12 15 16 Rate Blood Pressure 91/60 91/60 86/58 O2 Sat by Pulse 100 100 98 Oximetry 12/16/18 12/16/18 12/16/18 04:10 04:20 04:30 Temperature Pulse Rate 74 74 75 Pulse Rate [ From Monitor] Pulse Rate [ Right Radial] Respiratory 13 13 10 L Rate Blood Pressure 86/58 86/58 86/58 O2 Sat by Pulse 100 100 100 Oximetry 12/16/18 12/16/18 12/16/18 04:40 04:50 05:00 Temperature Pulse Rate 78 80 77 Pulse Rate [ From Monitor] Pulse Rate [ Right Radial] Respiratory 12 11 L 11 L Rate Blood Pressure 86/58 86/58 85/52 O2 Sat by Pulse 100 100 98 Oximetry 12/16/18 12/16/18 12/16/18 05:10 05:20 05:30 Temperature Pulse Rate 78 81 80 Pulse Rate [ From Monitor] Pulse Rate [ Right Radial] Respiratory 14 13 12 Rate Blood Pressure 85/52 85/52 85/52 O2 Sat by Pulse 100 100 Oximetry 12/16/18 12/16/18 12/16/18 05:40 05:50 06:00 Temperature Pulse Rate 79 81 81 Pulse Rate [ From Monitor] Pulse Rate [ Right Radial] Respiratory 10 L 13 12 Rate Blood Pressure 89/55 85/52 87/57 O2 Sat by Pulse 84 99 99 Oximetry 12/16/18 12/16/18 12/16/18 06:10 06:20 06:30 Temperature Pulse Rate 79 84 Pulse Rate [ From Monitor] Pulse Rate [ Right Radial] Respiratory 9 L 12 14 Rate Blood Pressure 87/57 87/57 87/57 O2 Sat by Pulse 100 100 100 Oximetry 12/16/18 12/16/18 12/16/18 06:40 06:50 07:00 Temperature Pulse Rate 80 80 79 Pulse Rate [ From Monitor] Pulse Rate [ Right Radial] Respiratory 12 12 11 L Rate Blood Pressure 87/57 87/57 93/56 O2 Sat by Pulse 100 100 100 Oximetry 12/16/18 12/16/18 12/16/18 07:10 07:20 07:30 Temperature Pulse Rate 82 80 83 Pulse Rate [ From Monitor] Pulse Rate [ Right Radial] Respiratory 10 L 10 L 10 L Rate Blood Pressure 93/56 93/56 93/56 O2 Sat by Pulse 100 100 100 Oximetry 12/16/18 12/16/18 12/16/18 07:40 07:50 08:00 Temperature Pulse Rate 81 80 79 Pulse Rate [ From Monitor] Pulse Rate [ Right Radial] Respiratory 11 L 11 L 11 L Rate Blood Pressure 93/56 93/56 82/54 O2 Sat by Pulse 100 100 Oximetry 12/16/18 12/16/18 12/16/18 08:10 08:20 08:30 Temperature Pulse Rate 85 78 82 Pulse Rate [ From Monitor] Pulse Rate [ Right Radial] Respiratory 8 L 10 L 10 L Rate Blood Pressure 82/54 82/54 82/54 O2 Sat by Pulse 100 100 100 Oximetry 12/16/18 12/16/18 08:40 08:50 Temperature Pulse Rate 79 79 Pulse Rate [ From Monitor] Pulse Rate [ Right Radial] Respiratory 13 11 L Rate Blood Pressure 82/54 82/54 O2 Sat by Pulse 100 100 Oximetry - Labs CBC & Chem 7: 12/15/18 05:28 12/16/18 04:51 Labs: Abnormal lab results 12/15/18 12/15/18 12/15/18 Range/Units 07:22 10:17 11:48 Sodium (137-145) mmol/L Potassium (3.6-5.0) mmol/L Chloride (98-107) mmol/L Carbon Dioxide (22-30) mmol/L Glucose (65-100) mg/dL POC Glucose 326 H 299 H 223 H (70-105) Calcium (8.4-10.2) mg/dL Phosphorus (2.5-4.5) mg/dL Magnesium (1.7-2.3) mg/dL 12/15/18 12/15/18 12/15/18 Range/Units 12:13 12:13 13:22 Sodium 146 H (137-145) mmol/L Potassium 3.0 L (3.6-5.0) mmol/L Chloride 110.8 H (98-107) mmol/L Carbon Dioxide 11 L (22-30) mmol/L Glucose 193 H (65-100) mg/dL POC Glucose 183 H (70-105) Calcium (8.4-10.2) mg/dL Phosphorus 0.50 L* D (2.5-4.5) mg/dL Magnesium (1.7-2.3) mg/dL 12/15/18 12/15/18 12/15/18 Range/Units 15:01 15:18 16:22 Sodium (137-145) mmol/L Potassium 3.1 L (3.6-5.0) mmol/L Chloride 111.5 H (98-107) mmol/L Carbon Dioxide 14 L (22-30) mmol/L Glucose 113 H (65-100) mg/dL POC Glucose 114 H 113 H (70-105) Calcium (8.4-10.2) mg/dL Phosphorus (2.5-4.5) mg/dL Magnesium (1.7-2.3) mg/dL 12/15/18 12/15/18 12/15/18 Range/Units 17:36 18:37 19:50 Sodium (137-145) mmol/L Potassium 2.8 L* 3.1 L (3.6-5.0) mmol/L Chloride 107.8 H 108.4 H (98-107) mmol/L Carbon Dioxide 13 L 11 L (22-30) mmol/L Glucose 173 H 265 H (65-100) mg/dL POC Glucose 180 H (70-105) Calcium 8.2 L (8.4-10.2) mg/dL Phosphorus 1.00 L D (2.5-4.5) mg/dL Magnesium 1.50 L (1.7-2.3) mg/dL 12/15/18 12/15/18 12/16/18 Range/Units 21:08 23:17 00:15 Sodium (137-145) mmol/L Potassium 3.0 L (3.6-5.0) mmol/L Chloride (98-107) mmol/L Carbon Dioxide 10 L (22-30) mmol/L Glucose 282 H (65-100) mg/dL POC Glucose 256 H 292 H (70-105) Calcium (8.4-10.2) mg/dL Phosphorus (2.5-4.5) mg/dL Magnesium (1.7-2.3) mg/dL 12/16/18 12/16/18 12/16/18 Range/Units 01:35 03:13 04:33 Sodium (137-145) mmol/L Potassium (3.6-5.0) mmol/L Chloride (98-107) mmol/L Carbon Dioxide (22-30) mmol/L Glucose (65-100) mg/dL POC Glucose 285 H 291 H 237 H (70-105) Calcium (8.4-10.2) mg/dL Phosphorus (2.5-4.5) mg/dL Magnesium (1.7-2.3) mg/dL 12/16/18 12/16/18 12/16/18 Range/Units 04:51 05:40 11:22 Sodium (137-145) mmol/L Potassium 3.0 L (3.6-5.0) mmol/L Chloride 109.5 H (98-107) mmol/L Carbon Dioxide 12 L (22-30) mmol/L Glucose 179 H (65-100) mg/dL POC Glucose 166 H 118 H (70-105) Calcium (8.4-10.2) mg/dL Phosphorus 0.60 L* D (2.5-4.5) mg/dL Magnesium 1.50 L (1.7-2.3) mg/dL Medications & Allergies - Medications Allergies/Adverse Reactions: Allergies No Known Allergies Allergy (Verified 12/14/18 21:27) Home Medications: Home Medications Medication Instructions Recorded Confirmed Last Taken Type No Known Home Medications [No 12/14/18 12/14/18 Unknown History Reported Home Medications] Active Medications: Generic Name Dose Route Start Last Admin Trade Name Freq PRN Reason Stop Dose Admin Acetaminophen 650 mg 12/14/18 22:46 Tylenol PO Q4H PRN Pain MILD(1-3)/Fever >100.5/VILLALOBOS Dextrose 50 ml 12/15/18 23:41 D50w (25gm) Syringe IV PRN PRN Hypoglycemia Enoxaparin Sodium 40 mg 12/15/18 10:00 12/16/18 11:58 Lovenox SUB-Q 40 mg QDAY EDGAR Administration Famotidine 10 mg 12/15/18 10:00 12/16/18 11:59 Pepcid IV 10 mg BID EDGAR Administration Hydralazine HCl 10 mg 12/15/18 00:21 Apresoline IV Q4HR PRN Blood Pressure Ceftriaxone Sodium 1 gm in 50 mls @ 100 mls/hr 12/15/18 10:00 12/16/18 11:57 Rocephin/Ns 1 Gm/50 Ml IV 100 mls/hr Q24HR EDGAR Administration Protocol Insulin Human Regular 100 100 mls @ 1 mls/hr 12/16/18 01:00 12/16/18 05:38 units/ Sodium Chloride IV 5 units/hr TITR EDGAR 5 mls/hr Administration Protocol 1 UNITS/HR Potassium Chloride/Dextrose/Sod Cl 20 meq in 1,000 mls @ 125 mls/hr 12/16/18 07:00 12/16/18 09:13 D5w/0.45% Nacl/Kcl 20 Meq IV 125 mls/hr DIRECT EDGAR Administration Metoclopramide HCl 5 mg 12/14/18 22:57 Reglan IV Q6H PRN Nausea And Vomiting Metoprolol Tartrate 25 mg 12/15/18 01:00 12/16/18 11:56 Lopressor PO Not Given BID EDGAR Morphine Sulfate 2 mg 12/14/18 22:46 Morphine IV Q4H PRN Pain, Moderate (4-6) Sodium Chloride 10 ml 12/15/18 10:00 12/15/18 21:45 Sodium Chloride Flush Syringe 10 Ml IV 10 ml BID EDGAR Administration Sodium Chloride 10 ml 12/14/18 22:46 Sodium Chloride Flush Syringe 10 Ml IV PRN PRN LINE FLUSH
[2018-12-16 13:32] LABS: BUN/Creatinine Ratio 10; Blood Urea Nitrogen 6 mg/dL (7-17); Calcium 8.8 mg/dL (8.4-10.2); Hemolysis Index 91
--- NOTE | 2018-12-16 14:05 | Progress Note ---
Assessment and Plan Assessment and plan: Patient is a 68 yo woman with a history of DM2 and hypertension who presented [facility] with generalized weakness. DKA in type 2 DM -Admit to the ICU on DKA protocol -Hemoglobin A1c level-->17.0 Uncontrolled type 2 DM, now IDDM -report of not taking DM for weeks -counseling on compliance SIRS without organ dysfunction, poa -Exact source of infection unknown -Urinalysis, urine and blood cultures pending -On empiric IV antibiotic with Rocephin Hypokalemia -Replete, will monitor level closely Hypophosphatemia -On IV fluids, will monitor level -replete HTN -Uncontrolled -On antihypertensives, adjust as needed Severe malnutrition evidenced by poor oral intake and BMI of 15.2 -Dietitian consulted Medication noncompliance -Patient counseled Metabolic acidosis -treat the DKA DVT prophylaxis with Lovenox and GI prophylaxis with famotidine CCT 34 minutes History Interval history: Patient was seen and examined. Follow-up on current diagnosis on DKA. No overnight events reported to me. Patient denies any chest pain, shortness breath, nausea/vomiting or severe headaches. Imaging, nursing note, chart, labs and old chart reviewed. Discussed with patient. Hospitalist Physical - Physical exam Narrative exam: Gen: WDWN, NAD, Awake, Alert, Orientated HEENT: NCAT, EOMI, PERRL, OP Clear Neck: supple, no adenopathy, no thyromegaly, no JVD CVS/Heart: RRR, normal S1S2, pulses present bilaterally Chest/Lungs: CTA B, Symmetrical chest expansion, good air entry bilaterally GI/Abdomen: soft, NTND, good bowel sounds, no guarding or rebound /Bladder: no suprapubic tenderness, no CVA or paraspinal tenderness Extermity/Skin: no c/c/e, no obvious rash MSK: FROM x 4 Neuro: CN 2-12 grossly intact, no new focal deficits Psych: calm - Constitutional Vitals: Temp Pulse Resp BP Pulse Ox 98.4 F 79 11 L 82/54 100 12/16/18 04:00 12/16/18 08:50 12/16/18 08:50 12/16/18 08:50 12/16/18 08:50 General appearance: Present: no acute distress, cachectic, disheveled Results - Labs CBC & Chem 7: 12/15/18 05:28 12/16/18 12:20 Labs: Laboratory Last Values WBC 15.2 K/mm3 (4.5-11.0) H 12/15/18 05:28 RBC 4.07 M/mm3 (3.65-5.03) 12/15/18 05:28 Hgb 13.0 gm/dl (10.1-14.3) 12/15/18 05:28 Hct 39.9 % (30.3-42.9) D 12/15/18 05:28 MCV 98 fl (79-97) H 12/15/18 05:28 MCH 32 pg (28-32) 12/15/18 05:28 MCHC 33 % (30-34) 12/15/18 05:28 RDW 13.0 % (13.2-15.2) L 12/15/18 05:28 Plt Count 170 K/mm3 (140-440) 12/15/18 05:28 Lymph % (Auto) 6.7 % (13.4-35.0) L 12/15/18 05:28 [place] % (Auto) 8.4 % (0.0-7.3) H 12/15/18 05:28 Eos % (Auto) 0.0 % (0.0-4.3) 12/15/18 05:28 Baso % (Auto) 0.8 % (0.0-1.8) 12/15/18 05:28 Lymph # 1.0 K/mm3 (1.2-5.4) L 12/15/18 05:28 [place] # 1.3 K/mm3 (0.0-0.8) H 12/15/18 05:28 Eos # 0.0 K/mm3 (0.0-0.4) 12/15/18 05:28 Baso # 0.1 K/mm3 (0.0-0.1) 12/15/18 05:28 Seg Neutrophils % 84.1 % (40.0-70.0) H 12/15/18 05:28 Seg Neutrophils # 12.8 K/mm3 (1.8-7.7) H 12/15/18 05:28 VBG pH 7.041 (7.320-7.420) L* 12/14/18 21:28 Sodium 137 mmol/L (137-145) 12/16/18 12:20 Potassium 3.4 mmol/L (3.6-5.0) L 12/16/18 12:20 Chloride 103.4 mmol/L (98-107) 12/16/18 12:20 Carbon Dioxide 15 mmol/L (22-30) L 12/16/18 12:20 22 mmol/L 12/16/18 12:20 BUN 6 mg/dL (7-17) L 12/16/18 12:20 0.6 mg/dL (0.7-1.2) L 12/16/18 12:20 Estimated GFR > 60 ml/min 12/16/18 12:20 10 % 12/16/18 12:20 Glucose 191 mg/dL (65-100) H 12/16/18 12:20 POC Glucose 118 (70-105) H 12/16/18 11:22 17.0 % (4-6) H 12/15/18 05:28 Lactic Acid 1.20 mmol/L (0.7-2.0) 12/15/18 07:20 Calcium 8.8 mg/dL (8.4-10.2) 12/16/18 12:20 Phosphorus 1.00 mg/dL (2.5-4.5) L D 12/16/18 12:20 Magnesium 2.90 mg/dL (1.7-2.3) H 12/16/18 12:20 0.40 mg/dL (0.1-1.2) 12/14/18 21:26 < 0.2 mg/dL (0-0.2) 12/14/18 21:26 0.2 mg/dL 12/14/18 21:26 AST 28 units/L (5-40) 12/14/18 21:26 ALT 23 units/L (7-56) 12/14/18 21:26 152 units/L (35-129) H 12/14/18 21:26 < 0.010 ng/mL (0.00-0.029) 12/14/18 21:26 7.3 g/dL (6.3-8.2) 12/14/18 21:26 4.1 g/dL (3.9-5) 12/14/18 21:26 1.3 % 12/14/18 21:26 32 units/L (13-60) 12/14/18 21:26 Plasma/Serum Alcohol < 0.01 % (0-0.07) 12/14/18 21:26 Active Medications - Current Medications Current Medications: Generic Name Dose Route Start Last Admin Trade Name Freq PRN Reason Stop Dose Admin Acetaminophen 650 mg 12/14/18 22:46 Tylenol PO Q4H PRN Pain MILD(1-3)/Fever >100.5/VILLALOBOS Dextrose 50 ml 12/15/18 23:41 D50w (25gm) Syringe IV PRN PRN Hypoglycemia Enoxaparin Sodium 40 mg 12/15/18 10:00 12/16/18 11:58 Lovenox SUB-Q 40 mg QDAY EDGAR Administration Famotidine 10 mg 12/15/18 10:00 12/16/18 11:59 Pepcid IV 10 mg BID EDGAR Administration Hydralazine HCl 10 mg 12/15/18 00:21 Apresoline IV Q4HR PRN Blood Pressure Ceftriaxone Sodium 1 gm in 50 mls @ 100 mls/hr 12/15/18 10:00 12/16/18 11:57 Rocephin/Ns 1 Gm/50 Ml IV 100 mls/hr Q24HR EDGAR Administration Protocol Insulin Human Regular 100 100 mls @ 1 mls/hr 12/16/18 01:00 12/16/18 05:38 units/ Sodium Chloride IV 5 units/hr TITR EDGAR 5 mls/hr Administration Protocol 1 UNITS/HR Potassium Chloride/Dextrose/Sod Cl 20 meq in 1,000 mls @ 175 mls/hr 12/16/18 07:00 12/16/18 09:13 D5w/0.45% Nacl/Kcl 20 Meq IV 125 mls/hr DIRECT EDGAR Administration Metoclopramide HCl 5 mg 12/14/18 22:57 Reglan IV Q6H PRN Nausea And Vomiting Metoprolol Tartrate 25 mg 12/15/18 01:00 12/16/18 11:56 Lopressor PO Not Given BID EDGAR Morphine Sulfate 2 mg 12/14/18 22:46 Morphine IV Q4H PRN Pain, Moderate (4-6) Sodium Chloride 10 ml 12/15/18 10:00 12/15/18 21:45 Sodium Chloride Flush Syringe 10 Ml IV 10 ml BID EDGAR Administration Sodium Chloride 10 ml 12/14/18 22:46 Sodium Chloride Flush Syringe 10 Ml IV PRN PRN LINE FLUSH Nutrition/Malnutrition Assess - Dietary Evaluation Nutrition/Malnutrition Findings: Nutrition Notes Start: 12/15/18 10:36 Freq: Status: Active Protocol: Document 12/15/18 10:36 CP (Rec: 12/15/18 10:53 CP [id number]) Co-Sign 12/15/18 10:36 LP Nutrition Notes Need for Assessment generated from: MD Order,MST,Low BMI Initial or Follow up Assessment Current Diagnosis Diabetes,Hypertension Other Pertinent Diagnosis SIRS, hypokalemia, hyperphosphatemia Current Diet NPO Labs/Tests Glu: 379 Phos: 1.2 M.6 Pertinent Medications Insulin Height 5 ft 4 in Weight 40.1 kg [place] Body Weight (kg) 54.54 BMI 15.1 Weight Status Underweight Subjective/Other Information MD screened for malnutrition, skin risk and low BMI. Pt has a forest score of 17 and has a BMI of 15.2. Pt was sleeping at time of visit. Observed pt with squared deltoids and protruding clavicles. Percent of energy/protein needs met: 0%/0% Burn Absent Trauma Absent Minimum of two criteria Yes Body Fat Depletion Moderate depletion (severe) Muscle Mass Moderate Depletion (severe) #2 Nutrition Diagnosis Malnutrition Etiology Unknown As Evidenced by Signs and Symptoms Squared deltoids and protruding clavicles #1 Nutrition Diagnosis Inadequate oral intake Etiology DKA protocol As Evidenced by Signs and Symptoms NPO status Is patient on ventilator? No Is Patient Ambulatory and/or Out of Bed No REE-([facility]-confined to bed) 1111.152 Kcal/Kg value to use for calculation 35 Approximate Energy Requirements Using 1404 kcal/Kg Calculation Used for Recommendations Kcal/kg Additional Notes Pro: 1.2-2g/kg (48-80g/day) Fluid: 1mL/kcal or per MD request Nutrition Intervention Change Diet Order: Advance per MD request Goal #1 Diet advancement Anticipated Discharge Needs: Unable to determine at this time Follow-Up By: 12/19/18 Additional Comments F/U: Diet advancement
[2018-12-16 19:28] LABS: Blood Urea Nitrogen TNR mg/dL (7-17)
[2018-12-16 19:29] LABS: BUN/Creatinine Ratio TNR
[2018-12-16 19:30] LABS: Calcium TNR mg/dL (8.4-10.2); Hemolysis Index TNR
[2018-12-17 01:13] LABS: BUN/Creatinine Ratio 6; Blood Urea Nitrogen 3 mg/dL (7-17); Calcium 8.3 mg/dL (8.4-10.2); Hemolysis Index 6
[2018-12-17] MEDS ORDERED: K-PHOS NEUTRAL PO ONE ×2 (01:53→12:38)
[2018-12-17 05:12] LABS: BUN/Creatinine Ratio 6; Blood Urea Nitrogen 3 mg/dL (7-17); Hemolysis Index 74
[2018-12-17] MEDS: D5W/0.45% NACL/KCL 20 MEQ 20 MEQ/1,000 ML BAG IV SCH (09:50)
[2018-12-17] MEDS: PEPCID IV SCH ×3 (10:04→22:08)
[2018-12-17] MEDS: LOPRESSOR PO SCH ×2 (10:05→22:12)
[2018-12-17] MEDS: LOVENOX SUB-Q SCH (10:07)
[2018-12-17] MEDS: SODIUM CHLORIDE FLUSH SYRINGE 10 ML IV SCH ×3 (10:30→22:13)
[2018-12-17] MEDS: ROCEPHIN/NS 1 GM/50 ML 1 GM/50 ML BAG IV SCH (11:00)
[2018-12-17 12:34] LABS: BUN/Creatinine Ratio 5; Blood Urea Nitrogen 2 mg/dL (7-17); Hemolysis Index 14
[2018-12-17] MEDS ORDERED: D50W (25GM) Syringe IV PRN (12:36)
--- NOTE | 2018-12-17 12:36 | Progress Note ---
Assessment and Plan 68 y/o female with DKA 1. consistent carbohydrate diet. 2. Discontinue insulin drip. 3. Stop D5W 4. FSBS changed to q4 hours 5. Needs diabetic education and counseling 6. High dose sliding scale insulin. If tolerates PO can be transitioned to the floor. CCT 31 minutes. Subjective Date of service: 12/17/18 Interval history: patient's anion gap has closed. has appetite and ready to eat. Objective - Constitutional Vitals: Vital Signs - 12hr 12/17/18 12/17/18 12/17/18 00:41 00:51 01:00 Temperature Pulse Rate 87 81 81 Respiratory 13 16 13 Rate Blood Pressure 101/76 101/76 98/62 O2 Sat by Pulse 100 100 100 Oximetry 12/17/18 12/17/18 12/17/18 01:11 01:21 01:31 Temperature Pulse Rate 78 79 78 Respiratory 8 L 10 L 10 L Rate Blood Pressure 102/67 102/67 102/67 O2 Sat by Pulse 100 100 100 Oximetry 12/17/18 12/17/18 12/17/18 01:41 01:51 02:00 Temperature Pulse Rate 75 85 82 Respiratory 11 L 13 14 Rate Blood Pressure 98/62 98/62 97/68 O2 Sat by Pulse 100 99 100 Oximetry 12/17/18 12/17/18 12/17/18 02:11 02:21 02:31 Temperature Pulse Rate 78 88 79 Respiratory 10 L 10 L 10 L Rate Blood Pressure 97/68 97/68 97/68 O2 Sat by Pulse 100 100 100 Oximetry 12/17/18 12/17/18 12/17/18 02:41 02:51 03:00 Temperature Pulse Rate 91 H 83 83 Respiratory 11 L 15 17 Rate Blood Pressure 97/68 97/68 91/60 O2 Sat by Pulse 100 100 Oximetry 12/17/18 12/17/18 12/17/18 03:11 03:21 03:31 Temperature Pulse Rate 85 96 H 81 Respiratory 11 L 13 12 Rate Blood Pressure 97/68 97/68 97/68 O2 Sat by Pulse 100 100 100 Oximetry 12/17/18 12/17/18 12/17/18 03:41 03:51 04:00 Temperature 98 F Pulse Rate 79 81 86 Respiratory 10 L 13 17 Rate Blood Pressure 91/60 91/60 98/60 O2 Sat by Pulse 100 100 100 Oximetry 12/17/18 12/17/18 12/17/18 04:11 04:21 04:31 Temperature Pulse Rate 82 82 82 Respiratory 10 L 10 L 10 L Rate Blood Pressure 98/60 98/60 98/60 O2 Sat by Pulse 100 100 100 Oximetry 12/17/18 12/17/18 12/17/18 04:41 04:51 05:00 Temperature Pulse Rate 83 82 89 Respiratory 17 12 12 Rate Blood Pressure 98/60 98/60 83/54 O2 Sat by Pulse 100 100 100 Oximetry 12/17/18 12/17/18 12/17/18 05:11 05:21 05:31 Temperature Pulse Rate 81 86 87 Respiratory 10 L 10 L 11 L Rate Blood Pressure 103/61 103/61 103/61 O2 Sat by Pulse 100 100 100 Oximetry 12/17/18 12/17/18 12/17/18 05:41 05:51 06:00 Temperature Pulse Rate 84 85 87 Respiratory 12 14 16 Rate Blood Pressure 103/61 103/61 94/70 O2 Sat by Pulse 100 100 100 Oximetry 12/17/18 12/17/18 06:11 06:21 Temperature Pulse Rate 92 H 83 Respiratory 12 10 L Rate Blood Pressure 94/70 94/70 O2 Sat by Pulse 100 100 Oximetry General appearance: Present: no acute distress, well-nourished, disheveled - EENT Eyes: PERRL, EOM intact ENT: hearing intact, clear oral mucosa - Neck Neck: supple, normal ROM - Respiratory Respiratory effort: normal Respiratory: bilateral: CTA - Breasts Breasts: deferred - Cardiovascular Rhythm: regular Heart Sounds: Present: S1 & S2 Extremities: no ischemia - Gastrointestinal General gastrointestinal: Present: soft, non-tender, normal bowel sounds Rectal Exam: deferred - Labs CBC & Chem 7: 12/15/18 05:28 12/17/18 04:37 Labs: Abnormal lab results 12/16/18 12/16/18 12/16/18 Range/Units 07:36 09:28 12:20 Sodium (137-145) mmol/L Potassium 3.4 L (3.6-5.0) mmol/L Carbon Dioxide 15 L (22-30) mmol/L BUN 6 L (7-17) mg/dL Creatinine 0.6 L (0.7-1.2) mg/dL Glucose 191 H (65-100) mg/dL POC Glucose 117 H 53 L (70-105) Calcium (8.4-10.2) mg/dL Phosphorus 1.00 L D (2.5-4.5) mg/dL Magnesium 2.90 H (1.7-2.3) mg/dL 12/16/18 12/16/18 12/16/18 Range/Units 13:46 15:11 16:09 Sodium (137-145) mmol/L Potassium (3.6-5.0) mmol/L Carbon Dioxide (22-30) mmol/L BUN (7-17) mg/dL Creatinine (0.7-1.2) mg/dL Glucose (65-100) mg/dL POC Glucose 224 H 274 H 292 H (70-105) Calcium (8.4-10.2) mg/dL Phosphorus (2.5-4.5) mg/dL Magnesium (1.7-2.3) mg/dL 12/16/18 12/16/18 12/16/18 Range/Units 17:07 18:12 19:21 Sodium (137-145) mmol/L Potassium (3.6-5.0) mmol/L Carbon Dioxide (22-30) mmol/L BUN (7-17) mg/dL Creatinine (0.7-1.2) mg/dL Glucose (65-100) mg/dL POC Glucose 264 H 202 H 201 H (70-105) Calcium (8.4-10.2) mg/dL Phosphorus (2.5-4.5) mg/dL Magnesium (1.7-2.3) mg/dL 12/16/18 12/16/18 12/16/18 Range/Units 21:26 22:49 23:49 Sodium (137-145) mmol/L Potassium (3.6-5.0) mmol/L Carbon Dioxide (22-30) mmol/L BUN (7-17) mg/dL Creatinine (0.7-1.2) mg/dL Glucose (65-100) mg/dL POC Glucose 134 H 150 H 162 H (70-105) Calcium (8.4-10.2) mg/dL Phosphorus (2.5-4.5) mg/dL Magnesium (1.7-2.3) mg/dL 05/07/2612/17/18 12/17/18 Range/Units 00:35 00:58 04:00 Sodium (137-145) mmol/L Potassium 2.7 L* D (3.6-5.0) mmol/L Carbon Dioxide 17 L (22-30) mmol/L BUN 3 L (7-17) mg/dL Creatinine 0.5 L (0.7-1.2) mg/dL Glucose 152 H (65-100) mg/dL POC Glucose 158 H 116 H (70-105) Calcium 8.3 L (8.4-10.2) mg/dL Phosphorus 0.60 L* D (2.5-4.5) mg/dL Magnesium (1.7-2.3) mg/dL 12/17/18 12/17/18 12/17/18 Range/Units 04:37 04:50 06:16 Sodium 134 L (137-145) mmol/L Potassium 3.2 L (3.6-5.0) mmol/L Carbon Dioxide 15 L (22-30) mmol/L BUN 3 L (7-17) mg/dL Creatinine 0.5 L (0.7-1.2) mg/dL Glucose 136 H (65-100) mg/dL POC Glucose 131 H 165 H (70-105) Calcium 8.0 L (8.4-10.2) mg/dL Phosphorus 0.70 L* (2.5-4.5) mg/dL Magnesium (1.7-2.3) mg/dL 12/17/18 12/17/18 Range/Units 08:03 09:12 Sodium (137-145) mmol/L Potassium (3.6-5.0) mmol/L Carbon Dioxide (22-30) mmol/L BUN (7-17) mg/dL Creatinine (0.7-1.2) mg/dL Glucose (65-100) mg/dL POC Glucose 190 H 187 H (70-105) Calcium (8.4-10.2) mg/dL Phosphorus (2.5-4.5) mg/dL Magnesium (1.7-2.3) mg/dL Medications & Allergies - Medications Allergies/Adverse Reactions: Allergies No Known Allergies Allergy (Verified 12/14/18 21:27) Home Medications: Home Medications Medication Instructions Recorded Confirmed Last Taken Type No Known Home Medications [No 12/14/18 12/14/18 Unknown History Reported Home Medications] Active Medications: Generic Name Dose Route Start Last Admin Trade Name Freq PRN Reason Stop Dose Admin Acetaminophen 650 mg 12/14/18 22:46 Tylenol PO Q4H PRN Pain MILD(1-3)/Fever >100.5/VILLALOBOS Dextrose 50 ml 12/15/18 23:41 D50w (25gm) Syringe IV PRN PRN Hypoglycemia Enoxaparin Sodium 40 mg 12/15/18 10:00 12/17/18 10:07 Lovenox SUB-Q 40 mg QDAY EDGAR Administration Famotidine 10 mg 12/15/18 10:00 12/17/18 10:04 Pepcid IV 10 mg BID EDGAR Administration Hydralazine HCl 10 mg 12/15/18 00:21 Apresoline IV Q4HR PRN Blood Pressure Ceftriaxone Sodium 1 gm in 50 mls @ 100 mls/hr 12/15/18 10:00 12/16/18 11:57 Rocephin/Ns 1 Gm/50 Ml IV 100 mls/hr Q24HR EDGAR Administration Protocol Potassium Chloride/Dextrose/Sod Cl 20 meq in 1,000 mls @ 175 mls/hr 12/16/18 07:00 12/17/18 09:50 D5w/0.45% Nacl/Kcl 20 Meq IV 125 mls/hr DIRECT EDGAR Administration Insulin Glargine 40 units 12/17/18 22:00 Lantus SUB-Q QHS EDGAR Metoclopramide HCl 5 mg 12/14/18 22:57 Reglan IV Q6H PRN Nausea And Vomiting Metoprolol Tartrate 25 mg 12/15/18 01:00 12/17/18 10:05 Lopressor PO 25 mg BID EDGAR Administration Morphine Sulfate 2 mg 12/14/18 22:46 Morphine IV Q4H PRN Pain, Moderate (4-6) Sodium Chloride 10 ml 12/15/18 10:00 12/15/18 21:45 Sodium Chloride Flush Syringe 10 Ml IV 10 ml BID EDGAR Administration Sodium Chloride 10 ml 12/14/18 22:46 Sodium Chloride Flush Syringe 10 Ml IV PRN PRN LINE FLUSH
--- NOTE | 2018-12-17 13:32 | Progress Note ---
Assessment and Plan Assessment and plan: Patient is a 68 yo woman with a history of DM2 and hypertension who presented to [facility] ED with generalized weakness. DKA in type 2 DM -resolved -Hemoglobin A1c level-->17.0 Uncontrolled type 2 DM, now IDDM -report of not taking DM for weeks -counseling on compliance SIRS without organ dysfunction, poa -Exact source of infection unknown -Urinalysis, urine ctx not sent, and blood cultures negative -On empiric IV antibiotic with Rocephin Hypokalemia -Replete, will monitor level closely Hypophosphatemia -On IV fluids, will monitor level -replete HTN -Uncontrolled -On antihypertensives, adjust as needed Severe malnutrition evidenced by poor oral intake and BMI of 15.2 -Dietitian consulted Medication noncompliance -Patient was counseled Metabolic acidosis -treat the DKA DVT prophylaxis with Lovenox and GI prophylaxis with famotidine d/c insulin drip, start basal/bolus, move out of ICU d/w Dr. Miller History Interval history: Patient was seen and examined. Follow-up on current diagnosis on DKA. No overnight events reported to me. Patient denies any chest pain, shortness breath, nausea/vomiting or severe headaches. Imaging, nursing note, chart, labs and old chart reviewed. Discussed with patient. Hospitalist Physical - Physical exam Narrative exam: Gen: WDWN, NAD, Awake, Alert, Orientated HEENT: NCAT, EOMI, PERRL, OP Clear Neck: supple, no adenopathy, no thyromegaly, no JVD CVS/Heart: RRR, normal S1S2, pulses present bilaterally Chest/Lungs: CTA B, Symmetrical chest expansion, good air entry bilaterally GI/Abdomen: soft, NTND, good bowel sounds, no guarding or rebound /Bladder: no suprapubic tenderness, no CVA or paraspinal tenderness Extermity/Skin: no c/c/e, no obvious rash MSK: FROM x 4 Neuro: CN 2-12 grossly intact, no new focal deficits Psych: calm - Constitutional Vitals: Temp Pulse Resp BP Pulse Ox 98 F 83 10 L 94/70 100 12/17/18 04:00 12/17/18 06:21 12/17/18 06:21 12/17/18 06:21 12/17/18 06:21 General appearance: Present: no acute distress, well-nourished, disheveled Results - Labs CBC & Chem 7: 12/15/18 05:28 12/17/18 11:34 Labs: Laboratory Last Values WBC 15.2 K/mm3 (4.5-11.0) H 12/15/18 05:28 RBC 4.07 M/mm3 (3.65-5.03) 12/15/18 05:28 Hgb 13.0 gm/dl (10.1-14.3) 12/15/18 05:28 Hct 39.9 % (30.3-42.9) D 12/15/18 05:28 MCV 98 fl (79-97) H 12/15/18 05:28 MCH 32 pg (28-32) 12/15/18 05:28 MCHC 33 % (30-34) 12/15/18 05:28 RDW 13.0 % (13.2-15.2) L 12/15/18 05:28 Plt Count 170 K/mm3 (140-440) 12/15/18 05:28 Lymph % (Auto) 6.7 % (13.4-35.0) L 12/15/18 05:28 [place] % (Auto) 8.4 % (0.0-7.3) H 12/15/18 05:28 Eos % (Auto) 0.0 % (0.0-4.3) 12/15/18 05:28 Baso % (Auto) 0.8 % (0.0-1.8) 12/15/18 05:28 Lymph # 1.0 K/mm3 (1.2-5.4) L 12/15/18 05:28 [place] # 1.3 K/mm3 (0.0-0.8) H 12/15/18 05:28 Eos # 0.0 K/mm3 (0.0-0.4) 12/15/18 05:28 Baso # 0.1 K/mm3 (0.0-0.1) 12/15/18 05:28 Seg Neutrophils % 84.1 % (40.0-70.0) H 12/15/18 05:28 Seg Neutrophils # 12.8 K/mm3 (1.8-7.7) H 12/15/18 05:28 VBG pH 7.041 (7.320-7.420) L* 12/14/18 21:28 Sodium 139 mmol/L (137-145) 12/17/18 11:34 Potassium 3.3 mmol/L (3.6-5.0) L 12/17/18 11:34 Chloride 108.9 mmol/L (98-107) H 12/17/18 11:34 Carbon Dioxide 16 mmol/L (22-30) L 12/17/18 11:34 17 mmol/L 12/17/18 11:34 BUN 2 mg/dL (7-17) L 12/17/18 11:34 0.4 mg/dL (0.7-1.2) L 12/17/18 11:34 Estimated GFR > 60 ml/min 12/17/18 11:34 5 % 12/17/18 11:34 Glucose 92 mg/dL (65-100) 12/17/18 11:34 POC Glucose 187 (70-105) H 12/17/18 09:12 17.0 % (4-6) H 12/15/18 05:28 Lactic Acid 1.20 mmol/L (0.7-2.0) 12/15/18 07:20 Calcium 8.0 mg/dL (8.4-10.2) L 12/17/18 11:34 Phosphorus 0.60 mg/dL (2.5-4.5) L* 12/17/18 11:34 Magnesium 2.10 mg/dL (1.7-2.3) 12/17/18 11:34 0.40 mg/dL (0.1-1.2) 12/14/18 21:26 < 0.2 mg/dL (0-0.2) 12/14/18 21:26 0.2 mg/dL 12/14/18 21:26 AST 28 units/L (5-40) 12/14/18 21:26 ALT 23 units/L (7-56) 12/14/18 21:26 152 units/L (35-129) H 12/14/18 21:26 < 0.010 ng/mL (0.00-0.029) 12/14/18 21:26 7.3 g/dL (6.3-8.2) 12/14/18 21:26 4.1 g/dL (3.9-5) 12/14/18 21:26 1.3 % 12/14/18 21:26 32 units/L (13-60) 12/14/18 21:26 Plasma/Serum Alcohol < 0.01 % (0-0.07) 12/14/18 21:26 Active Medications - Current Medications Current Medications: Generic Name Dose Route Start Last Admin Trade Name Freq PRN Reason Stop Dose Admin Acetaminophen 650 mg 12/14/18 22:46 Tylenol PO Q4H PRN Pain MILD(1-3)/Fever >100.5/VILLALOBOS Dextrose 50 ml 12/17/18 12:36 D50w (25gm) Syringe IV PRN PRN Hypoglycemia Enoxaparin Sodium 40 mg 12/15/18 10:00 12/17/18 10:07 Lovenox SUB-Q 40 mg QDAY EDGAR Administration Famotidine 10 mg 12/15/18 10:00 12/17/18 10:04 Pepcid IV 10 mg BID EDGAR Administration Hydralazine HCl 10 mg 12/15/18 00:21 Apresoline IV Q4HR PRN Blood Pressure Ceftriaxone Sodium 1 gm in 50 mls @ 100 mls/hr 12/15/18 10:00 12/16/18 11:57 Rocephin/Ns 1 Gm/50 Ml IV 100 mls/hr Q24HR EDGAR Administration Protocol Insulin Glargine 40 units 12/17/18 22:00 Lantus SUB-Q QHS EDGAR Insulin Human Regular 0 units 12/17/18 14:00 Humulin R SUB-Q Q4HR [facility] Protocol Metoclopramide HCl 5 mg 12/14/18 22:57 Reglan IV Q6H PRN Nausea And Vomiting Metoprolol Tartrate 25 mg 12/15/18 01:00 12/17/18 10:05 Lopressor PO 25 mg BID EDGAR Administration Morphine Sulfate 2 mg 12/14/18 22:46 Morphine IV Q4H PRN Pain, Moderate (4-6) Sodium Chloride 10 ml 12/15/18 10:00 12/15/18 21:45 Sodium Chloride Flush Syringe 10 Ml IV 10 ml BID EDGAR Administration Sodium Chloride 10 ml 12/14/18 22:46 Sodium Chloride Flush Syringe 10 Ml IV PRN PRN LINE FLUSH Nutrition/Malnutrition Assess - Dietary Evaluation Nutrition/Malnutrition Findings: Nutrition Notes Start: 12/15/18 10 :36 Freq: Status: Active Protocol: Document 12/15/18 10:36 CP (Rec: 12/15/18 10:53 CP [id number]) Co-Sign 12/15/18 10:36 LP Nutrition Notes Need for Assessment generated from: MD Order,MST,Low BMI Initial or Follow up Assessment Current Diagnosis Diabetes,Hypertension Other Pertinent Diagnosis SIRS, hypokalemia, hyperphosphatemia Current Diet NPO Labs/Tests Glu: 379 Phos: 1.2 M.6 Pertinent Medications Insulin Height 5 ft 4 in Weight 40.1 kg [place] Body Weight (kg) 54.54 BMI 15.1 Weight Status Underweight Subjective/Other Information MD screened for malnutrition, skin risk and low BMI. Pt has a forest score of 17 and has a BMI of 15.2. Pt was sleeping at time of visit. Observed pt with squared deltoids and protruding clavicles. Percent of energy/protein needs met: 0%/0% Burn Absent Trauma Absent Minimum of two criteria Yes Body Fat Depletion Moderate depletion (severe) Muscle Mass Moderate Depletion (severe) #2 Nutrition Diagnosis Malnutrition Etiology Unknown As Evidenced by Signs and Symptoms Squared deltoids and protruding clavicles #1 Nutrition Diagnosis Inadequate oral intake Etiology DKA protocol As Evidenced by Signs and Symptoms NPO status Is patient on ventilator? No Is Patient Ambulatory and/or Out of Bed No REE-([place]-confined to bed) 1111.152 Kcal/Kg value to use for calculation 35 Approximate Energy Requirements Using 1404 kcal/Kg Calculation Used for Recommendations Kcal/kg Additional Notes Pro: 1.2-2g/kg (48-80g/day) Fluid: 1mL/kcal or per MD request Nutrition Intervention Change Diet Order: Advance per MD request Goal #1 Diet advancement Anticipated Discharge Needs: Unable to determine at this time Follow-Up By: 12/19/18 Additional Comments F/U: Diet advancement
[2018-12-17] MEDS: HumuLIN R SUB-Q SCH ×3 (14:00→22:11)
[2018-12-17] MEDS: KCL 10MEQ/100ML 10 MEQ/100 ML BAG IV SCH ×2 (17:50→17:51)
[2018-12-17] MEDS ORDERED: LANTUS SUB-Q SCH (22:00)
[2018-12-18] MEDS: HumuLIN R SUB-Q SCH ×4 (02:58→15:14)
[2018-12-18] MEDS: ROCEPHIN/NS 1 GM/50 ML 1 GM/50 ML BAG IV SCH (09:18)
[2018-12-18] MEDS: LOVENOX SUB-Q SCH (09:19)
[2018-12-18] MEDS: SODIUM CHLORIDE FLUSH SYRINGE 10 ML IV SCH (09:19)
[2018-12-18] MEDS: LOPRESSOR PO SCH (09:27)
[2018-12-18] MEDS ORDERED: PEPCID PO SCH (10:00)
--- NOTE | 2018-12-18 11:50 | Progress Note ---
Assessment and Plan Assessment and plan: Patient is a 68 yo woman with a history of DM2 and hypertension who presented to [facility] ED with generalized weakness. DKA in type 2 DM -resolved -Hemoglobin A1c level-->17.0 Educated patient reqarding using Insulin Uncontrolled type 2 DM, now IDDM -report of not taking DM for weeks -counseling on compliance SIRS without organ dysfunction, poa -Exact source of infection unknown -Urinalysis, urine ctx not sent, and blood cultures negative -On empiric IV antibiotic with Rocephin Hypokalemia -Replete, will monitor level closely Severe Hypophosphatemia -On IV fluids, will monitor level -replete HTN -Uncontrolled -On antihypertensives, adjust as needed Severe malnutrition evidenced by poor oral intake and BMI of 15.2 -Dietitian consulted Medication noncompliance -Patient was counseled Metabolic acidosis -treat the DKA DVT prophylaxis with Lovenox and GI prophylaxis with famotidine d/c insulin drip, start basal/bolus, move out of ICU on 12/16/18 Disposition: d.c home if bmp, mg and phosph are stable History Interval history: Patient was seen and examined. Follow-up on current diagnosis on DKA. No overnight events reported to me. Patient denies any chest pain, shortness breath, nausea/vomiting or severe headaches. Imaging, nursing note, chart, labs and old chart reviewed. Discussed with patient. Hospitalist Physical - Physical exam Narrative exam: Gen: WDWN, NAD, Awake, Alert, Orientated HEENT: NCAT, EOMI, PERRL, OP Clear Neck: supple, no adenopathy, no thyromegaly, no JVD CVS/Heart: RRR, normal S1S2, pulses present bilaterally Chest/Lungs: CTA B, Symmetrical chest expansion, good air entry bilaterally GI/Abdomen: soft, NTND, good bowel sounds, no guarding or rebound /Bladder: no suprapubic tenderness, no CVA or paraspinal tenderness Extermity/Skin: no c/c/e, no obvious rash MSK: FROM x 4 Neuro: CN 2-12 grossly intact, no new focal deficits Psych: calm - Constitutional Vitals: Temp Pulse Resp BP Pulse Ox 98.4 F 96 H 18 107/71 100 12/18/18 07:31 12/18/18 09:27 12/18/18 07:31 12/18/18 09:27 12/18/18 09:25 General appearance: Present: no acute distress, well-nourished, disheveled Results - Labs CBC & Chem 7: 12/15/18 05:28 12/17/18 11:34 Labs: Laboratory Last Values WBC 15.2 K/mm3 (4.5-11.0) H 12/15/18 05:28 RBC 4.07 M/mm3 (3.65-5.03) 12/15/18 05:28 Hgb 13.0 gm/dl (10.1-14.3) 12/15/18 05:28 Hct 39.9 % (30.3-42.9) D 12/15/18 05:28 MCV 98 fl (79-97) H 12/15/18 05:28 MCH 32 pg (28-32) 12/15/18 05:28 MCHC 33 % (30-34) 12/15/18 05:28 RDW 13.0 % (13.2-15.2) L 12/15/18 05:28 Plt Count 170 K/mm3 (140-440) 12/15/18 05:28 Lymph % (Auto) 6.7 % (13.4-35.0) L 12/15/18 05:28 [place] % (Auto) 8.4 % (0.0-7.3) H 12/15/18 05:28 Eos % (Auto) 0.0 % (0.0-4.3) 12/15/18 05:28 Baso % (Auto) 0.8 % (0.0-1.8) 12/15/18 05:28 Lymph # 1.0 K/mm3 (1.2-5.4) L 12/15/18 05:28 [place] # 1.3 K/mm3 (0.0-0.8) H 12/15/18 05:28 Eos # 0.0 K/mm3 (0.0-0.4) 12/15/18 05:28 Baso # 0.1 K/mm3 (0.0-0.1) 12/15/18 05:28 Seg Neutrophils % 84.1 % (40.0-70.0) H 12/15/18 05:28 Seg Neutrophils # 12.8 K/mm3 (1.8-7.7) H 12/15/18 05:28 VBG pH 7.041 (7.320-7.420) L* 12/14/18 21:28 Sodium 139 mmol/L (137-145) 12/17/18 11:34 Potassium 3.3 mmol/L (3.6-5.0) L 12/17/18 11:34 Chloride 108.9 mmol/L (98-107) H 12/17/18 11:34 Carbon Dioxide 16 mmol/L (22-30) L 12/17/18 11:34 17 mmol/L 12/17/18 11:34 BUN 2 mg/dL (7-17) L 12/17/18 11:34 0.4 mg/dL (0.7-1.2) L 12/17/18 11:34 Estimated GFR > 60 ml/min 12/17/18 11:34 5 % 12/17/18 11:34 Glucose 92 mg/dL (65-100) 12/17/18 11:34 POC Glucose 149 (70-105) H 12/18/18 11:27 17.0 % (4-6) H 12/15/18 05:28 Lactic Acid 1.20 mmol/L (0.7-2.0) 12/15/18 07:20 Calcium 8.0 mg/dL (8.4-10.2) L 12/17/18 11:34 Phosphorus 0.60 mg/dL (2.5-4.5) L* 12/17/18 11:34 Magnesium 2.10 mg/dL (1.7-2.3) 12/17/18 11:34 0.40 mg/dL (0.1-1.2) 12/14/18 21:26 < 0.2 mg/dL (0-0.2) 12/14/18 21:26 0.2 mg/dL 12/14/18 21:26 AST 28 units/L (5-40) 12/14/18 21:26 ALT 23 units/L (7-56) 12/14/18 21:26 152 units/L (35-129) H 12/14/18 21:26 < 0.010 ng/mL (0.00-0.029) 12/14/18 21:26 7.3 g/dL (6.3-8.2) 12/14/18 21:26 4.1 g/dL (3.9-5) 12/14/18 21:26 1.3 % 12/14/18 21:26 32 units/L (13-60) 12/14/18 21:26 Plasma/Serum Alcohol < 0.01 % (0-0.07) 12/14/18 21:26 Active Medications - Current Medications Current Medications: Generic Name Dose Route Start Last Admin Trade Name Freq PRN Reason Stop Dose Admin Acetaminophen 650 mg 12/14/18 22:46 Tylenol PO Q4H PRN Pain MILD(1-3)/Fever >100.5/VILLALOBOS Dextrose 50 ml 12/17/18 12:36 D50w (25gm) Syringe IV PRN PRN Hypoglycemia Enoxaparin Sodium 40 mg 12/15/18 10:00 12/18/18 09:19 Lovenox SUB-Q 40 mg QDAY EDGAR Administration Famotidine 10 mg 12/18/18 10:00 12/18/18 09:27 Pepcid PO 10 mg BID EDGAR Administration Hydralazine HCl 10 mg 12/15/18 00:21 Apresoline IV Q4HR PRN Blood Pressure Ceftriaxone Sodium 1 gm in 50 mls @ 100 mls/hr 12/15/18 10:00 12/18/18 09:18 Rocephin/Ns 1 Gm/50 Ml IV 100 mls/hr Q24HR EDGRA Administration Protocol Insulin Glargine 40 units 12/17/18 22:00 12/17/18 22:10 Lantus SUB-Q 40 units QHS [facility] Administration Insulin Human Regular 0 units 12/17/18 14:00 12/18/18 06:40 Humulin R SUB-Q Not Given Q4HR [facility] Protocol Metoclopramide HCl 5 mg 12/14/18 22:57 Reglan IV Q6H PRN Nausea And Vomiting Metoprolol Tartrate 25 mg 12/15/18 01:00 12/18/18 09:27 Lopressor PO Not Given BID [facility] Morphine Sulfate 2 mg 12/14/18 22:46 Morphine IV Q4H PRN Pain, Moderate (4-6) Sodium Chloride 10 ml 12/15/18 10:00 12/18/18 09:19 Sodium Chloride Flush Syringe 10 Ml IV 10 ml BID EDGAR Administration Sodium Chloride 10 ml 12/14/18 22:46 Sodium Chloride Flush Syringe 10 Ml IV PRN PRN LINE FLUSH Nutrition/Malnutrition Assess - Dietary Evaluation Nutrition/Malnutrition Findings: Nutrition Notes Start: 12/15/18 10:36 Freq: Status: Active Protocol: Document 12/15/18 10:36 CP (Rec: 12/15/18 10:53 CP [id number]) Co-Sign 12/15/18 10:36 LP Nutrition Notes Need for Assessment generated from: MD Order,MST,Low BMI Initial or Follow up Assessment Current Diagnosis Diabetes,Hypertension Other Pertinent Diagnosis SIRS, hypokalemia, hyperphosphatemia Current Diet NPO Labs/Tests Glu: 379 Phos: 1.2 M.6 Pertinent Medications Insulin Height 5 ft 4 in Weight 40.1 kg [place] Body Weight (kg) 54.54 BMI 15.1 Weight Status Underweight Subjective/Other Information MD screened for malnutrition, skin risk and low BMI. Pt has a forest score of 17 and has a BMI of 15.2. Pt was sleeping at time of visit. Observed pt with squared deltoids and protruding clavicles. Percent of energy/protein needs met: 0%/0% Burn Absent Trauma Absent Minimum of two criteria Yes Body Fat Depletion Moderate depletion (severe) Muscle Mass Moderate Depletion (severe) #2 Nutrition Diagnosis Malnutrition Etiology Unknown As Evidenced by Signs and Symptoms Squared deltoids and protruding clavicles #1 Nutrition Diagnosis Inadequate oral intake Etiology DKA protocol As Evidenced by Signs and Symptoms NPO status Is patient on ventilator? No Is Patient Ambulatory and/or Out of Bed No REE-([facility]-confined to bed) 1111.152 Kcal/Kg value to use for calculation 35 Approximate Energy Requirements Using 1404 kcal/Kg Calculation Used for Recommendations Kcal/kg Additional Notes Pro: 1.2-2g/kg (48-80g/day) Fluid: 1mL/kcal or per MD request Nutrition Intervention Change Diet Order: Advance per MD request Goal #1 Diet advancement Anticipated Discharge Needs: Unable to determine at this time Follow-Up By: 12/19/18 Additional Comments F/U: Diet advancement
--- NOTE | 2018-12-18 11:55 | Discharge Summary ---
Providers - Providers Date of Admission: 12/14/18 22:46 Date of discharge: 12/18/18 Attending physician: ELISEO RENEE 12/14/18 22:46 Consult to Physician [CONS] Routine Comment: Consulting Provider: GERRY DAMON Physician Instructions: Reason For Exam: DKA 12/15/18 00:29 Consult to Dietitian/Nutrition [CONS] Routine Physician Instructions: Reason For Exam: Reason for Consult: Malnutrition 12/17/18 13:33 Occupational Therapy Evaluate and Treat [CONS] Routine Comment: Reason For Exam: ADLs evaluation Physical Therapy Evaluation and Treat [CONS] Routine Comment: Reason For Exam: gait evaluation/ambulatory dysfunction Primary care physician: [employer] Hospitalization Condition: Stable Hospital course: Patient is a 68 yo woman with a history of DM2 and hypertension who presented to [facility] ED with generalized weakness. DKA in type 2 DM -resolved -Hemoglobin A1c level-->17.0 Educated patient reqarding using Insulin Uncontrolled type 2 DM, now IDDM -report of not taking DM for weeks -counseling on compliance SIRS without organ dysfunction, poa -Exact source of infection unknown -Urinalysis, urine ctx not sent, and blood cultures negative -On empiric IV antibiotic with Rocephin Hypokalemia -Replete, will monitor level closely Severe Hypophosphatemia -On IV fluids, will monitor level -replete HTN -Uncontrolled -On antihypertensives, adjust as needed Severe malnutrition evidenced by poor oral intake and BMI of 15.2 -Dietitian consulted Medication noncompliance -Patient was counseled Metabolic acidosis -treat the DKA DVT prophylaxis with Lovenox and GI prophylaxis with famotidine d/c insulin drip, start basal/bolus, move out of ICU on 12/16/18 Disposition: d.c home if bmp, mg and phosph are stable Disposition: [id number] HOME [facility] Time spent for discharge: 33 minutes Core Measure Documentation - Palliative Care Palliative Care/ Comfort Measures: Not Applicable - Core Measures Any of the following diagnoses?: none - VTE Discharge Requirements Deep Vein Thrombosis/Pulmonary Embolism Present on Admission: No Has pt received <5 days of overlap therapy or INR<2.0: No Anticoagulant overlap therapy prescribed at discharge: No Contraindication No Overlap Therapy order at DC: Not Indicated Exam - Physical Exam Narrative exam: Gen: WDWN, NAD, Awake, Alert, Orientated HEENT: NCAT, EOMI, PERRL, OP Clear Neck: supple, no adenopathy, no thyromegaly, no JVD CVS/Heart: RRR, normal S1S2, pulses present bilaterally Chest/Lungs: CTA B, Symmetrical chest expansion, good air entry bilaterally GI/Abdomen: soft, NTND, good bowel sounds, no guarding or rebound /Bladder: no suprapubic tenderness, no CVA or paraspinal tenderness Extermity/Skin: no c/c/e, no obvious rash MSK: FROM x 4 Neuro: CN 2-12 grossly intact, no new focal deficits Psych: calm - Constitutional Vitals: Temp Pulse Resp BP Pulse Ox 98.4 F 96 H 18 107/71 100 12/18/18 07:31 12/18/18 09:27 12/18/18 07:31 12/18/18 09:27 12/18/18 09:25 Plan Activity: no driving until cleared by PCP, up only with assistance, fall precautions, other (no strenous activity, including driving unless cleared by PCP) Diet: low salt, diabetic Special Instructions: record daily BP diary, record blood sugar diary (three times a day), physical therapy Follow up with: PRIMARY CARE,MD [Primary Care Provider] - 7 Days Prescriptions: Insulin Glargine [Lantus VIAL] 40 units SUB-Q QHS #30 units Metoprolol [Lopressor TAB] 25 mg PO BID #60 tablet Insulin Aspart [NovoLOG Flexpen] 1 dose SQ AC PRN #1 pen PRN Reason: Hyperglycemia
--- NOTE | 2018-12-18 12:28 | XRay Report ---
AP CHEST: HISTORY: Shortness of breath Compared to 12/14/18. AP view of the chest demonstrates a normal mediastinal and cardiac contour with clear lungs and normal bony and soft tissue structures. IMPRESSION: Unremarkable AP chest.
--- NOTE | 2018-12-18 12:40 | Progress Note ---
Assessment and Plan Imp: 1. DKA 2. Volume depletion 3. [place], mild 4. Hypokalemia 5. Lactic acidosis 6. SIRS 7. Cachexia 8. Abnormal CXR Rec: 1. Admit CXR was suspicious for PTX on the R; repeat CXR today is normal 2. DM2 management, etc. per primary 3. Can go home from our standpoint, and we will sign off Plan of care reviewed w/ patient, she understands/agrees Subjective Date of service: 12/18/18 Principal diagnosis: DKA Interval history: No events. Awake, alert. On RA. No chest pain, cough, sputum, SOB, wheezing. C/o Diarrhea. Active Medications Acetaminophen (Tylenol) 650 mg PO Q4H PRN PRN Reason: Pain MILD(1-3)/Fever >100.5/VILLALOBOS Dextrose (D50w (25gm) Syringe) 50 ml IV PRN PRN PRN Reason: Hypoglycemia Enoxaparin Sodium (Lovenox) 40 mg SUB-Q QDAY [facility] Last Admin: 12/18/18 09:19 Dose: 40 mg Documented by: Famotidine (Pepcid) 10 mg PO BID [facility] Last Admin: 12/18/18 09:27 Dose: 10 mg Documented by: Hydralazine HCl (Apresoline) 10 mg IV Q4HR PRN PRN Reason: Blood Pressure Ceftriaxone Sodium (Rocephin/Ns 1 Gm/50 Ml) 1 gm in 50 mls @ 100 mls/hr IV Q24HR [facility]; Protocol Last Admin: 12/18/18 09:18 Dose: 100 mls/hr Documented by: Insulin Glargine (Lantus) 40 units SUB-Q QHS [facility] Last Admin: 12/17/18 22:10 Dose: 40 units Documented by: Insulin Human Regular (Humulin R) 0 units SUB-Q Q4HR [facility]; Protocol Last Admin: 12/18/18 06:40 Dose: Not Given Documented by: Metoclopramide HCl (Reglan) 5 mg IV Q6H PRN PRN Reason: Nausea And Vomiting Metoprolol Tartrate (Lopressor) 25 mg PO BID [facility] Last Admin: 12/18/18 09:27 Dose: Not Given Documented by: Morphine Sulfate (Morphine) 2 mg IV Q4H PRN PRN Reason: Pain, Moderate (4-6) Sodium Chloride (Sodium Chloride Flush Syringe 10 Ml) 10 ml IV BID EDGAR Last Admin: 12/18/18 09:19 Dose: 10 ml Documented by: Sodium Chloride (Sodium Chloride Flush Syringe 10 Ml) 10 ml IV PRN PRN PRN Reason: LINE FLUSH Objective Vital Signs - 12hr 12/18/18 12/18/18 12/18/18 02:59 07:31 09:25 Temperature 97.3 F L 98.4 F Pulse Rate 94 H 83 96 H Respiratory 18 18 Rate Blood Pressure 93/53 105/62 107/71 O2 Sat by Pulse 99 100 100 Oximetry 12/18/18 09:27 Temperature Pulse Rate 96 H Respiratory Rate Blood Pressure 107/71 O2 Sat by Pulse Oximetry Constitutional: no acute distress, alert, other (cachectic) Eyes: non-icteric ENT: oropharynx moist Neck: supple Effort: normal Ascultation: Bilateral: clear Cardiovascular: regular rate and rhythm (no mrg) Gastrointestinal: normoactive bowel sounds, soft, non-tender, non-distended Integumentary: normal Extremities: no cyanosis, no edema, pink and warm Neurologic: normal mental status, non-focal exam, pupils equal and round, CN II- XII normal Psychiatric: mood appropriate, affect normal CBC and BMP: 12/15/18 05:28 12/17/18 11:34 Abnormal lab findings: Abnormal Labs 12/14/18 12/14/18 12/14/18 21:26 21:26 21:26 WBC 16.1 H Hgb 15.4 H Hct 47.9 H MCV 100 H RDW Lymph % (Auto) 2.6 L White % (Auto) 9.1 H Lymph # 0.4 L White # 1.5 H Seg Neutrophils % 87.8 H Seg Neutrophils # 14.1 H VBG pH Sodium 136 L Potassium 2.9 L* Chloride 86.4 L Carbon Dioxide 5 L* BUN Creatinine Glucose 603 H* POC Glucose Hemoglobin A1c Lactic Acid Calcium Phosphorus 5.00 H Magnesium Alkaline Phosphatase 152 H 12/14/18 12/14/18 12/14/18 21:28 21:30 21:46 WBC Hgb Hct MCV RDW Lymph % (Auto) White % (Auto) Lymph # White # Seg Neutrophils % Seg Neutrophils # VBG pH 7.041 L* Sodium Potassium Chloride Carbon Dioxide BUN Creatinine Glucose POC Glucose 460 H Hemoglobin A1c Lactic Acid 5.10 H* Calcium Phosphorus Magnesium Alkaline Phosphatase 12/14/18 12/15/18 12/15/18 23:04 00:06 00:11 WBC Hgb Hct MCV RDW Lymph % (Auto) White % (Auto) Lymph # White # Seg Neutrophils % Seg Neutrophils # VBG pH Sodium Potassium 2.8 L* Chloride 94.6 L Carbon Dioxide 6 L* BUN Creatinine Glucose 482 H POC Glucose 405 H Hemoglobin A1c Lactic Acid 3.90 H* Calcium Phosphorus Magnesium Alkaline Phosphatase 12/15/18 12/15/18 12/15/18 01:00 02:27 04:12 WBC Hgb Hct MCV RDW Lymph % (Auto) White % (Auto) Lymph # White # Seg Neutrophils % Seg Neutrophils # VBG pH Sodium Potassium Chloride Carbon Dioxide BUN Creatinine Glucose POC Glucose 432 H 331 H 339 H Hemoglobin A1c Lactic Acid Calcium Phosphorus Magnesium Alkaline Phosphatase 12/15/18 12/15/18 12/15/18 04:59 05:28 05:28 WBC 15.2 H Hgb Hct MCV 98 H RDW 13.0 L Lymph % (Auto) 6.7 L White % (Auto) 8.4 H Lymph # 1.0 L White # 1.3 H Seg Neutrophils % 84.1 H Seg Neutrophils # 12.8 H VBG pH Sodium Potassium Chloride Carbon Dioxide BUN Creatinine Glucose POC Glucose 367 H Hemoglobin A1c Lactic Acid Calcium Phosphorus 1.50 L D Magnesium Alkaline Phosphatase 12/15/18 12/15/18 12/15/18 05:28 05:28 06:14 WBC Hgb Hct MCV RDW Lymph % (Auto) White % (Auto) Lymph # White # Seg Neutrophils % Seg Neutrophils # VBG pH Sodium Potassium Chloride Carbon Dioxide 8 L* BUN Creatinine Glucose 390 H POC Glucose 400 H Hemoglobin A1c 17.0 H Lactic Acid Calcium Phosphorus Magnesium Alkaline Phosphatase 12/15/18 12/15/18 12/15/18 07:20 07:20 07:22 WBC Hgb Hct MCV RDW Lymph % (Auto) White % (Auto) Lymph # White # Seg Neutrophils % Seg Neutrophils # VBG pH Sodium Potassium Chloride Carbon Dioxide 6 L* BUN Creatinine Glucose 379 H POC Glucose 326 H Hemoglobin A1c Lactic Acid Calcium Phosphorus 1.20 L Magnesium 1.60 L Alkaline Phosphatase 12/15/18 12/15/18 12/15/18 08:11 09:22 10:17 WBC Hgb Hct MCV RDW Lymph % (Auto) White % (Auto) Lymph # White # Seg Neutrophils % Seg Neutrophils # VBG pH Sodium Potassium Chloride Carbon Dioxide BUN Creatinine Glucose POC Glucose 339 H 292 H 299 H Hemoglobin A1c Lactic Acid Calcium Phosphorus Magnesium Alkaline Phosphatase 12/15/18 12/15/18 12/15/18 11:48 12:13 12:13 WBC Hgb Hct MCV RDW Lymph % (Auto) White % (Auto) Lymph # White # Seg Neutrophils % Seg Neutrophils # VBG pH Sodium 146 H Potassium 3.0 L Chloride 110.8 H Carbon Dioxide 11 L BUN Creatinine Glucose 193 H POC Glucose 223 H Hemoglobin A1c Lactic Acid Calcium Phosphorus 0.50 L* D Magnesium Alkaline Phosphatase 12/15/18 12/15/18 12/15/18 13:22 15:01 15:18 WBC Hgb Hct MCV RDW Lymph % (Auto) White % (Auto) Lymph # White # Seg Neutrophils % Seg Neutrophils # VBG pH Sodium Potassium 3.1 L Chloride 111.5 H Carbon Dioxide 14 L BUN Creatinine Glucose 113 H POC Glucose 183 H 114 H Hemoglobin A1c Lactic Acid Calcium Phosphorus Magnesium Alkaline Phosphatase 12/15/18 12/15/18 12/15/18 16:22 17:36 18:37 WBC Hgb Hct MCV RDW Lymph % (Auto) White % (Auto) Lymph # White # Seg Neutrophils % Seg Neutrophils # VBG pH Sodium Potassium 2.8 L* Chloride 107.8 H Carbon Dioxide 13 L BUN Creatinine Glucose 173 H POC Glucose 113 H 180 H Hemoglobin A1c Lactic Acid Calcium Phosphorus Magnesium Alkaline Phosphatase 12/15/18 12/15/18 12/15/18 19:50 21:08 23:17 WBC Hgb Hct MCV RDW Lymph % (Auto) White % (Auto) Lymph # White # Seg Neutrophils % Seg Neutrophils # VBG pH Sodium Potassium 3.1 L 3.0 L Chloride 108.4 H Carbon Dioxide 11 L 10 L BUN Creatinine Glucose 265 H 282 H POC Glucose 256 H Hemoglobin A1c Lactic Acid Calcium 8.2 L Phosphorus 1.00 L D Magnesium 1.50 L Alkaline Phosphatase 12/16/18 12/16/18 12/16/18 00:15 01:35 03:13 WBC Hgb Hct MCV RDW Lymph % (Auto) White % (Auto) Lymph # White # Seg Neutrophils % Seg Neutrophils # VBG pH Sodium Potassium Chloride Carbon Dioxide BUN Creatinine Glucose POC Glucose 292 H 285 H 291 H Hemoglobin A1c Lactic Acid Calcium Phosphorus Magnesium Alkaline Phosphatase 12/16/18 12/16/18 12/16/18 04:33 04:51 05:40 WBC Hgb Hct MCV RDW Lymph % (Auto) White % (Auto) Lymph # White # Seg Neutrophils % Seg Neutrophils # VBG pH Sodium Potassium 3.0 L Chloride 109.5 H Carbon Dioxide 12 L BUN Creatinine Glucose 179 H POC Glucose 237 H 166 H Hemoglobin A1c Lactic Acid Calcium Phosphorus 0.60 L* D Magnesium 1.50 L Alkaline Phosphatase 12/16/18 12/16/18 12/16/18 07:36 09:28 11:22 WBC Hgb Hct MCV RDW Lymph % (Auto) White % (Auto) Lymph # White # Seg Neutrophils % Seg Neutrophils # VBG pH Sodium Potassium Chloride Carbon Dioxide BUN Creatinine Glucose POC Glucose 117 H 53 L 118 H Hemoglobin A1c Lactic Acid Calcium Phosphorus Magnesium Alkaline Phosphatase 12/16/18 12/16/18 12/16/18 12:20 13:46 15:11 WBC Hgb Hct MCV RDW Lymph % (Auto) White % (Auto) Lymph # White # Seg Neutrophils % Seg Neutrophils # VBG pH Sodium Potassium 3.4 L Chloride Carbon Dioxide 15 L BUN 6 L Creatinine 0.6 L Glucose 191 H POC Glucose 224 H 274 H Hemoglobin A1c Lactic Acid Calcium Phosphorus 1.00 L D Magnesium 2.90 H Alkaline Phosphatase 12/16/18 12/16/18 12/16/18 16:09 17:07 18:12 WBC Hgb Hct MCV RDW Lymph % (Auto) White % (Auto) Lymph # White # Seg Neutrophils % Seg Neutrophils # VBG pH Sodium Potassium Chloride Carbon Dioxide BUN Creatinine Glucose POC Glucose 292 H 264 H 202 H Hemoglobin A1c Lactic Acid Calcium Phosphorus Magnesium Alkaline Phosphatase 12/16/18 12/16/18 12/16/18 19:21 21:26 22:49 WBC Hgb Hct MCV RDW Lymph % (Auto) White % (Auto) Lymph # White # Seg Neutrophils % Seg Neutrophils # VBG pH Sodium Potassium Chloride Carbon Dioxide BUN Creatinine Glucose POC Glucose 201 H 134 H 150 H Hemoglobin A1c Lactic Acid Calcium Phosphorus Magnesium Alkaline Phosphatase 12/16/18 12/17/18 12/17/18 23:49 00:35 00:58 WBC Hgb Hct MCV RDW Lymph % (Auto) White % (Auto) Lymph # White # Seg Neutrophils % Seg Neutrophils # VBG pH Sodium Potassium 2.7 L* D Chloride Carbon Dioxide 17 L BUN 3 L Creatinine 0.5 L Glucose 152 H POC Glucose 162 H 158 H Hemoglobin A1c Lactic Acid Calcium 8.3 L Phosphorus 0.60 L* D Magnesium Alkaline Phosphatase 12/17/18 12/17/18 12/17/18 04:00 04:37 04:50 WBC Hgb Hct MCV RDW Lymph % (Auto) White % (Auto) Lymph # White # Seg Neutrophils % Seg Neutrophils # VBG pH Sodium 134 L Potassium 3.2 L Chloride Carbon Dioxide 15 L BUN 3 L Creatinine 0.5 L Glucose 136 H POC Glucose 116 H 131 H Hemoglobin A1c Lactic Acid Calcium 8.0 L Phosphorus 0.70 L* Magnesium Alkaline Phosphatase 12/17/18 12/17/18 12/17/18 06:16 08:03 09:12 WBC Hgb Hct MCV RDW Lymph % (Auto) White % (Auto) Lymph # White # Seg Neutrophils % Seg Neutrophils # VBG pH Sodium Potassium Chloride Carbon Dioxide BUN Creatinine Glucose POC Glucose 165 H 190 H 187 H Hemoglobin A1c Lactic Acid Calcium Phosphorus Magnesium Alkaline Phosphatase 12/17/18 12/17/18 12/17/18 11:34 11:46 17:49 WBC Hgb Hct MCV RDW Lymph % (Auto) White % (Auto) Lymph # White # Seg Neutrophils % Seg Neutrophils # VBG pH Sodium Potassium 3.3 L Chloride 108.9 H Carbon Dioxide 16 L BUN 2 L Creatinine 0.4 L Glucose POC Glucose 137 H 243 H Hemoglobin A1c Lactic Acid Calcium 8.0 L Phosphorus 0.60 L* Magnesium Alkaline Phosphatase 12/17/18 12/18/18 12/18/18 22:39 03:01 06:41 WBC Hgb Hct MCV RDW Lymph % (Auto) White % (Auto) Lymph # White # Seg Neutrophils % Seg Neutrophils # VBG pH Sodium Potassium Chloride Carbon Dioxide BUN Creatinine Glucose POC Glucose 298 H 141 H 50 L Hemoglobin A1c Lactic Acid Calcium Phosphorus Magnesium Alkaline Phosphatase 12/18/18 12/18/18 07:35 11:27 WBC Hgb Hct MCV RDW Lymph % (Auto) White % (Auto) Lymph # White # Seg Neutrophils % Seg Neutrophils # VBG pH Sodium Potassium Chloride Carbon Dioxide BUN Creatinine Glucose POC Glucose 110 H 149 H Hemoglobin A1c Lactic Acid Calcium Phosphorus Magnesium Alkaline Phosphatase Chest x-ray: report reviewed, image reviewed (clear lungs)
[2018-12-18 14:12] LABS: Calcium 8.3 mg/dL (8.4-10.2); Hemolysis Index 51
[2018-12-18 14:14] LABS: BUN/Creatinine Ratio 3; Blood Urea Nitrogen < 1 mg/dL (7-17)
[2018-12-18] MEDS ORDERED: K-PHOS NEUTRAL PO ONE (15:25)
[2018-12-18] MEDS ORDERED: K-DUR PO ONE (15:26)
[2018-12-18 15:54] VITALS: BP 126/79
== END 2018-12-18 18:30 | disposition home health service (06) | DRG 637 ==
LOC: ED 21:10 → CC1 22:46 → 2B-ACE 12-17 15:25
PROVIDERS: ADMIT Internal Medicine; ATTEND Internal Medicine
DX: E11.10 Type 2 diabetes mellitus with ketoacidosis without coma (principal); E43 Unspecified severe protein-calorie malnutrition; Z68.1 Body mass index [BMI] 19.9 or less, adult; R65.10 Systemic inflammatory response syndrome (SIRS) of non-infectious origin without acute organ dysfunction; N17.9 Acute kidney failure, unspecified; R64 Cachexia; E87.6 Hypokalemia; I45.81 Long QT syndrome; I10 Essential (primary) hypertension; E83.39 Other disorders of phosphorus metabolism; E86.9 Volume depletion, unspecified; Z91.14 Patient's other noncompliance with medication regimen; Z87.891 Personal history of nicotine dependence
CPT/HCPCS: 36415; 71045; 80048; 80076; 80320; 82140; 82805; 82962; 83036; 83690; 83735; 84100; 84484; 85025; 87040; 93005; 93010; 96361; 96365; 96375; G0378; G0480; J0696; J1650; J1815; J2543; J3475; J3480; J7030; J7070

== ENCOUNTER 2020-07-30 13:46 | Emergency (ER) | payer SELFPAY ==
--- NOTE | 2020-07-30 16:01 | Event Note ---
ED Screening Note ED Screening Note: Generalized weakness that began yesterday +chills No fever, cough, chest pain, shortness of breath, abdominal pain, vomiting, diarrhea Past medical history of diabetes and hypertension She does not check her blood sugar regularly but uses insulin This initial assessment/diagnostic orders/clinical plan/treatment(s) is/are subject to change based on patients health status, clinical progression and re- assessment by fellow clinical providers in the ED. Further treatment and workup at subsequent clinical providers discretion. Patient/guardian urged not to elope from the ED as their condition may be serious if not clinically assessed and managed. Initial orders include: Labs, UA, EKG, CXR
[2020-07-30 16:30] LABS: Basophils % (Auto) 0.2 % (0.0-1.8); Eosinophils % (Auto) 0.1 % (0.0-4.3); Hematocrit 45.4 % (30.3-42.9); Hemoglobin 15.3 gm/dl (10.1-14.3); Lymphocytes # (Auto) 1.3 K/mm3 (1.2-5.4); Lymphocytes % (Auto) 10.1 % (13.4-35.0); Mean Corpuscular HGB Conc 34 % (30-34); Mean Corpuscular Volume 92 fl (79-97); Monocytes # (Auto) 0.9 K/mm3 (0.0-0.8); Monocytes % (Auto) 6.9 % (0.0-7.3); Platelet Count 265 K/mm3 (140-440); Red Blood Count 4.91 M/mm3 (3.65-5.03); Red Cell Distribution Width 12.2 % (13.2-15.2)
--- NOTE | 2020-07-30 16:34 | XRay Report ---
CHEST 2 VIEWS INDICATION / CLINICAL INFORMATION: weakness. COMPARISON: 12/18/2018 FINDINGS: SUPPORT DEVICES: None. HEART / MEDIASTINUM: No significant abnormality. LUNGS / PLEURA: No significant pulmonary or pleural abnormality. No pneumothorax. ADDITIONAL FINDINGS: No significant additional findings. IMPRESSION: 1. No acute findings. Signer Name: Cory Marie MD Signed: 07/30/2020 4:29 PM Workstation Name: [id number]
[2020-07-30 16:56] LABS: Alanine Aminotransferase 42 units/L (7-56); Albumin 4.5 g/dL (3.9-5); Blood Urea Nitrogen 6 mg/dL (7-17); Calcium 10.2 mg/dL (8.4-10.2); Hemolysis Index 66
[2020-07-30 17:04] LABS: BUN/Creatinine Ratio 20
[2020-07-30] MEDS ORDERED: POTASSIUM CHLORIDE ER 20 MEQ TAB PO ONE ×2 (17:21→19:07)
[2020-07-30] MEDS ORDERED: MAGNESIUM SULFATE 2 GM/50 ML BAG IV ONE (19:07)
--- NOTE | 2020-07-30 19:12 | Emergency Department Report ---
ED Syncope HPI - General Chief Complaint: Weakness Stated Complaint: WEAKNESS Time Seen by Provider: 07/30/20 15:55 - History of Present Illness Initial Comments: 70-year-old female, history of diabetes, hypertension, presents to ED with generalized weakness. Patient thinks that she may have had a syncopal episode earlier while at home. Patient remembers feeling dizzy and lightheaded. Patient denies any chest pain, shortness of breath, palpitations, fever, abdominal pain, vomiting, diarrhea. Patient denies any cough, loss of smell or taste, or known contact with anyone who is tested positive for COVID-19. Patient reports she has been having some generalized weakness x1 week. Timing/Prior Episodes: single episode today Precipitating Factors: Positive: lightheadedness Context: standing Loss of Consciousness: unsure Current Symptoms: back to normal, lightheadedness. denies: chest pain, hea dache, loss of bladder control, loss of bowel control - Related Data Allergies/Adverse Reactions: Allergies No Known Allergies Allergy (Verified 07/30/20 14:37) Home Medications: Ambulatory Orders Acetaminophen [Acetaminophen TAB] 325 mg PO Q4H PRN #15 tablet 12/18/18 Famotidine [Pepcid] 10 mg PO BID #30 tablet 12/18/18 Insulin Aspart (Nf) [NovoLOG Flexpen] 1 dose SQ AC PRN #1 pen 12/18/18 Insulin Glargine [Lantus VIAL] 40 units SUB-Q QHS #30 units 12/18/18 Metoprolol [Lopressor TAB] 25 mg PO BID #60 tablet 12/18/18 Nitrofurantoin [place]/M-Cryst [Macrobid CAP] 100 mg PO Q12HR 7 Days #14 capsule 07/30/20 Potassium Chloride [K-Dur] 10 meq PO QDAY #5 tablet 07/30/20 ED Review of Systems ROS: Stated complaint: WEAKNESS Other details as noted in HPI Comment: All other systems reviewed and negative Constitutional: other (Reports unexplained weight loss). denies: chills, fever Respiratory: denies: cough, shortness of breath Cardiovascular: denies: chest pain, palpitations Gastrointestinal: denies: abdominal pain, nausea, vomiting, diarrhea Neurological: denies: headache ED Past Medical Hx - Past Medical History Hx Hypertension: Yes (20 years ago) Hx Diabetes: Yes - Surgical History Past Surgical History?: No - Social History Smoking Status: Never Smoker - Medications Home Medications: Home Medications Medication Instructions Recorded Confirmed Last Taken Type Acetaminophen [Acetaminophen TAB] 325 mg PO Q4H PRN #15 tablet 12/18/18 Unknown Rx Famotidine [Pepcid] 10 mg PO BID #30 tablet 12/18/18 Unknown Rx Insulin Aspart (Nf) [NovoLOG 1 dose SQ AC PRN #1 pen 12/18/18 Unknown Rx Flexpen] Insulin Glargine [Lantus VIAL] 40 units SUB-Q QHS #30 units 12/18/18 Unknown Rx Metoprolol [Lopressor TAB] 25 mg PO BID #60 tablet 12/18/18 Unknown Rx Nitrofurantoin [place]/M-Cryst 100 mg PO Q12HR 7 Days #14 capsule 07/30/20 Unknown Rx [Macrobid CAP] Potassium Chloride [K-Dur] 10 meq PO QDAY #5 tablet 07/30/20 Unknown Rx ED Physical Exam - General Limitations: Other General appearance: alert, in no apparent distress, other (Appears frail) - Head Head exam: Present: atraumatic, normocephalic - Eye Eye exam: Present: normal appearance, EOMI - ENT ENT exam: Present: mucous membranes moist - Neck Neck exam: Present: normal inspection - Respiratory Respiratory exam: Present: normal lung sounds bilaterally. Absent: respiratory distress - Cardiovascular Cardiovascular Exam: Present: regular rate, normal rhythm - GI/Abdominal GI/Abdominal exam: Present: soft. Absent: distended, tenderness - Extremities Exam Extremities exam: Present: normal inspection - Neurological Exam Neurological exam: Present: alert, oriented X3, CN II-XII intact. Absent: motor sensory deficit - Psychiatric Psychiatric exam: Present: normal affect, normal mood - Skin Skin exam: Present: warm, dry, intact, normal color ED Course Vital Signs 07/30/20 07/30/20 07/30/20 14:41 18:52 18:58 Temperature 97.5 F L Pulse Rate 88 90 Respiratory 18 17 Rate Blood Pressure Blood Pressure 147/96 159/91 [Right] O2 Sat by Pulse 100 100 100 Oximetry 07/30/20 07/30/20 07/30/20 19:01 20:00 22:00 Temperature Pulse Rate 89 85 60 Respiratory 20 10 L 14 Rate Blood Pressure 159/91 170/98 Blood Pressure 137/67 [Right] O2 Sat by Pulse 100 100 100 Oximetry ED Medical Decision Making - Lab Data Result diagrams: 07/30/20 16:06 07/30/20 16:06 - EKG Data -: EKG Interpreted by Me EKG shows normal: sinus rhythm, axis, QRS complexes, ST-T waves Rate: normal - EKG Data Interpretation: other (prolonged QT) - Radiology Data Radiology results: report reviewed, image reviewed - Medical Decision Making 70-year-old female presents to ED with generalized weakness x1 week, possible syncopal episode today. EKG shows no ST changes. Troponin is negative. Patient is not very orthostatic. Labs show that patient has some hypomagnesemia, hypokalemia, and a UTI. Patient given IV fluids, magnesium, and potassium here in the ED. She is also being given something to eat. Patient states she is feeling better at this time. Prescription given for antibiotics. Patient advised to follow-up with her PCP for unexplained weight loss which she reported to me. Return precautions given. - Differential Diagnosis Infection, arrhythmia, electrolyte abnormality Critical care attestation.: If time is entered above; I have spent that time in minutes in the direct care of this critically ill patient, excluding procedure time. ED Disposition Clinical Impression: Hypokalemia, UTI (urinary tract infection), Hypomagnesemia, Generalized weakness Disposition: DC-01 TO HOME OR SELFCARE Is pt being admited?: No Condition: Stable Instructions: Hypomagnesemia, Hypokalemia, Urinary Tract Infection, Adult, [id number] Prescriptions: Potassium Chloride [K-Dur] 10 meq PO QDAY #5 tablet Nitrofurantoin [place]/M-Cryst [Macrobid CAP] 100 mg PO Q12HR 7 Days #14 capsule Referrals: PRIMARY CARE, [Primary Care Provider] - 3-5 Days Time of Disposition: 21:32
[2020-07-30] MEDS ORDERED: SODIUM CHLORIDE 0.9% 1000 ML 1,000 ML IV ONE (19:54)
[2020-07-30 21:22] LABS: Bacteria,Urine 2+ /HPF (Negative); Bilirubin,Urine NEG (Negative); Blood,Urine SM (Negative); Color,Urine Yellow (Yellow); Protein,Urine <15 mg/dL mg/dL (Negative); Urobilinogen,Urine < 2.0 mg/dL (<2.0)
[2020-07-30 22:16] VITALS: BP 137/67
== END 2020-07-30 22:00 | disposition home or self-care (01) ==
LOC: ED 13:46
DX: E87.6 Hypokalemia (principal); E83.42 Hypomagnesemia; N39.0 Urinary tract infection, site not specified; I10 Essential (primary) hypertension; E11.9 Type 2 diabetes mellitus without complications; Z79.899 Other long term (current) drug therapy
CPT/HCPCS: 36415; 71046; 80053; 81001; 82550; 82962; 83735; 84484; 85025; 93005; 96365; 99284; J3475; J7030

== ENCOUNTER 2020-11-12 15:49 | Observation (INO) | payer MEDICARE, OTHER ==
[2020-11-12] MEDS ORDERED: DEXTROSE 50% IN WATER (25GM) 50 ML VIAL IV PRN (16:57)
--- NOTE | 2020-11-12 16:58 | Emergency Department Report ---
ED General Adult HPI - General Chief complaint: Altered Mental Status Stated complaint: i dont know, i guess i passed out Time Seen by Provider: 11/12/20 16:28 Source: patient, EMS ( EMS documentation not available at time of chart dictation ), RN notes reviewed, old records reviewed Mode of arrival: Stretcher Limitations: Altered Mental Status - History of Present Illness Initial comments: The patient was evaluated in the emergency department for symptoms described in the history of present illness. He/she was evaluated in the context of the global COVID-19 pandemic, which necessitated consideration that the patient might be at risk for infection with the virus that causes COVID-19. Institutional protocols and algorithms that pertain to the evaluation of patients at risk for COVID-19 are in a state of rapid change based on information released by regulatory bodies including the CDC and federal and state organizations. These policies and algorithms were followed during the patient's care in the emergency department. Please note that these policies, procedures and recommendations changed on a rapid basis. This patient is a pleasant 70-year-old female. She appears to have a history of diabetes, diabetic ketoacidosis, SIRS, hypokalemia, hypophosphatemia, and hypertension. She is brought to the hospital today by emergency medical services. The patient is not currently accompanied by friends, family at this time for additional i nformation or collateral information. The patient states "I do not know what happened, maybe I passed out." The patient states she has no headache, neck pain, chest pain, abdominal pain, shortness of breath. She has no loss of vision, dysuria, cough, no loss of taste or smell. As per triage nursing documentation, EMS responded to an altered mental status phone call, where patient was found to have an Accu-Chek of 80. The patient knows that she gets her prescriptions at [facility], does not believe that she takes oral hypoglycemics but is not certain, but she cannot remember what specific prescription she takes. The patient asked that I call her significant other, Mr. Lloyd Rivers, [phone] I gave permission to discuss the details of her medical care with Mr. Rivers. We called up the listed number, nobody answered, went to voicemail, and we have left a message for call back. The patient does not describe any exacerbating factors, relieving factors, or aggravating factors. She does not know the day of the week, believes that it is Tuesday (it is currently Tuesday), thinks that it is 2017, although she is able to list her name, knows that she is in the hospital, and knows who the current president is. -: This afternoon Severity scale (0 -10): 0 Quality: other Consistency: other Improves with: other Worsens with: other Associated Symptoms: other Treatments Prior to Arrival: other - Related Data Previous Rx's Medication Instructions Recorded Last Taken Type Acetaminophen [Acetaminophen TAB] 325 mg PO Q4H PRN #15 tablet 12/18/18 Unknown Rx Famotidine [Pepcid] 10 mg PO BID #30 tablet 12/18/18 Unknown Rx Insulin Aspart (Nf) [NovoLOG 1 dose SQ AC PRN #1 pen 12/18/18 Unknown Rx Flexpen] Insulin Glargine [Lantus VIAL] 40 units SUB-Q QHS #30 units 12/18/18 Unknown Rx Metoprolol [Lopressor TAB] 25 mg PO BID #60 tablet 12/18/18 Unknown Rx Nitrofurantoin [place]/M-Cryst 100 mg PO Q12HR 7 Days #14 capsule 07/30/20 Unknown Rx [Macrobid CAP] Potassium Chloride [K-Dur] 10 meq PO QDAY #5 tablet 07/30/20 Unknown Rx Allergies Allergy/AdvReac Type Severity Reaction Status Date / Time No Known Allergies Allergy Verified 07/30/20 14:37 ED Review of Systems ROS: Stated complaint: HYPOGLYCEMIA Other details as noted in HPI Comment: All other systems reviewed and negative Cardiovascular: syncope (Possible syncope) Neurological: confusion ED Past Medical Hx - Past Medical History Hx Hypertension: Yes (20 years ago) Hx Diabetes: Yes - Social History Smoking Status: Never Smoker - Medications Home Medications: Home Medications Medication Instructions Recorded Confirmed Last Taken Type Acetaminophen [Acetaminophen TAB] 325 mg PO Q4H PRN #15 tablet 12/18/18 11/12/20 Unknown Rx Famotidine [Pepcid] 10 mg PO BID #30 tablet 12/18/18 11/12/20 Unknown Rx Insulin Aspart (Nf) [NovoLOG 1 dose SQ AC PRN #1 pen 12/18/18 11/12/20 Unknown Rx Flexpen] Insulin Glargine [Lantus VIAL] 40 units SUB-Q QHS #30 units 12/18/18 11/12/20 Unknown Rx Metoprolol [Lopressor TAB] 25 mg PO BID #60 tablet 12/18/18 11/12/20 Unknown Rx Nitrofurantoin [place]/M-Cryst 100 mg PO Q12HR 7 Days #14 capsule 07/30/20 11/12/20 Unknown Rx [Macrobid CAP] Potassium Chloride [K-Dur] 10 meq PO QDAY #5 tablet 07/30/20 11/12/20 Unknown Rx ED Physical Exam - General Limitations: No Limitations General appearance: alert, in no apparent distress - Head Head exam: Present: atraumatic, normocephalic - Eye Eye exam: Present: normal appearance, PERRL, EOMI. Absent: nystagmus Pupils: Present: other (Visual acuity is intact to finger counting in color perception at a close distance) - ENT ENT exam: Present: normal exam, normal orophraynx, mucous membranes moist, normal external ear exam - Neck Neck exam: Present: normal inspection, full ROM. Absent: tenderness, meningismus - Respiratory Respiratory exam: Present: normal lung sounds bilaterally. Absent: respiratory distress, wheezes, rales, rhonchi, stridor, decreased breath sounds - Cardiovascular Cardiovascular Exam: Present: regular rate, normal rhythm, normal heart sounds. Absent: bradycardia, tachycardia, irregular rhythm, systolic murmur, diastolic murmur, rubs, gallop - GI/Abdominal GI/Abdominal exam: Present: soft, normal bowel sounds, hernia (There is a midline ventral hernia which is reducible). Absent: distended, tenderness, guarding, rebound, rigid, pulsatile mass - Extremities Exam Extremities exam: Present: normal inspection, full ROM, other (2+ pulses noted in the bilateral upper and lower extremities. There is no palpable cord. negative Homans sign. Muscular compartments are soft. The pelvis is stable.). Absent: pedal edema, calf tenderness - Back Exam Back exam: Present: normal inspection, full ROM. Absent: tenderness, CVA tenderness (R), CVA tenderness (L), paraspinal tenderness, vertebral tenderness - Neurological Exam Neurological exam: Present: altered, oriented X3, other (No facial droop. Tongue midline. Extraocular movements intact bilaterally. Facial sensation intact to light touch in V1, V2, V3 distribution bilaterally. 5 and a 5 strength in 4 extremities. Sensation intact to light touch in 4 extremities.) - Psychiatric Psychiatric exam: Present: anxious - Skin Skin exam: Present: warm, dry, intact, normal color. Absent: rash ED Course Vital Signs 11/12/20 11/12/20 11/12/20 16:02 18:00 18:16 Temperature 97.3 F L Pulse Rate 90 94 H 92 H Respiratory 18 12 12 Rate Blood Pressure 163/96 163/96 Blood Pressure 136/80 [Left] O2 Sat by Pulse 99 99 100 Oximetry 11/12/20 11/12/20 11/12/20 18:45 19:00 19:16 Temperature Pulse Rate Respiratory Rate Blood Pressure 172/103 172/103 172/103 Blood Pressure [Left] O2 Sat by Pulse 100 99 100 Oximetry 11/12/20 11/12/20 11/12/20 19:30 19:41 20:03 Temperature Pulse Rate 93 H Respiratory Rate Blood Pressure 172/103 182/113 Blood Pressure 189/116 [Left] O2 Sat by Pulse 100 Oximetry - Reevaluation(s) Reevaluation #1: 11/12/20 17:15 Differential diagnosis, including but not limited to: Orthostasis, vagal event, structural cardiac disease, Dementia, intracranial lesion, toxic encephalopathy, metabolic encephalopathy, endocrinopathy, pneumonia, urinary tract infection Assessment and plan: 62-year-old female with confusion, last known well time is not explicitly known, neurologic examination is nonfocal, not suggestive of large vessel occlusion, last known well time not known, therefore, not a TPA candidate. We have attempted to contact next of kin to get collateral information and additional information, nobody answered listed phone number, we left a voicemail for call back. Obtain CT scan of the brain, x-ray of the chest, urinalysis, appropriate laboratory studies, EKG and rectal temperature. Reassess after initial data points. I have discussed this plan of care with the patient, who verbalized mathew simon, was amenable to this plan of care. Reevaluation #2: 11/12/20 18:44 EMS documentation reviewed and appreciated. Apparently, they responded to a call for altered mental status. The patient's fianc advised that the patient was alert to her name only. EMS indicated that Accu-Chek in the field of 80. She was given 15 g of oral glucose. Accu-Chek of 80 in my opinion not adequate to explain change in mental status. Hospital physician will be paged to arrange admission. Examination at this time not suggestive of a large vessel occlusion. Reevaluation #3: 11/12/20 18:49 cypriot syncope rule 2 points [place] Syncope Risk Score Medium risk 5.1% risk of 30-day serious adverse event (, arrhythmia, AR full list in Evidence) Dr Abad Trujillo to admit abg ordered, asa level pending ammonia level pending no call back yet from Mr Garcia in spite of voice mail 11/12/20 18:50 Nursing team perform straight catheterization of patient's bladder, but no urine was obtained. Patient will be given fluids, we will reattempt. Reevaluation #4: 11/12/20 20:09 Urinalysis unremarkable. Arterial blood gas unremarkable. ED Medical Decision Making - Lab Data Result diagrams: 11/12/20 17:32 11/12/20 17:32 Vital Signs 11/12/20 16:02 Temperature 97.3 F L Pulse Rate 90 Respiratory 18 Rate Blood Pressure 136/80 [Left] O2 Sat by Pulse 99 Oximetry Vital Signs 11/12/20 11/12/20 16:02 18:00 Temperature 97.3 F L Pulse Rate 90 94 H Respiratory 18 12 Rate Blood Pressure 163/96 Blood Pressure 136/80 [Left] O2 Sat by Pulse 99 99 Oximetry Lab Results 11/12/20 11/12/20 11/12/20 Range/Units 16:26 17:32 17:32 WBC 10.5 (4.5-11.0) K/mm3 RBC 4.09 (3.65-5.03) M/mm3 Hgb 13.6 (10.1-14.3) gm/dl Hct 39.7 (30.3-42.9) % MCV 97 (79-97) fl MCH 33 H (28-32) pg MCHC 34 (30-34) % RDW 12.3 L (13.2-15.2) % Plt Count 302 (140-440) K/mm3 Lymph % (Auto) 7.7 L (13.4-35.0) % Brooke % (Auto) 6.2 (0.0-7.3) % Eos % (Auto) 0.2 (0.0-4.3) % Baso % (Auto) 0.3 (0.0-1.8) % Lymph # (Auto) 0.8 L (1.2-5.4) K/mm3 Brooke # (Auto) 0.7 (0.0-0.8) K/mm3 Eos # (Auto) 0.0 (0.0-0.4) K/mm3 Baso # (Auto) 0.0 (0.0-0.1) K/mm3 Seg Neutrophils % 85.6 H (40.0-70.0) % Seg Neutrophils # 9.0 H (1.8-7.7) K/mm3 PT 12.6 (12.2-14.9) Sec. INR 0.96 (0.87-1.13) APTT 25.6 (24.2-36.6) Sec. Sodium (137-145) mmol/L Potassium (3.6-5.0) mmol/L Chloride (98-107) mmol/L Carbon Dioxide (22-30) mmol/L Anion Gap mmol/L BUN (7-17) mg/dL Creatinine (0.6-1.2) mg/dL Estimated GFR ml/min BUN/Creatinine Ratio % Glucose (65-100) mg/dL POC Glucose 138 H (70-105) mg/dL Lactic Acid (0.7-2.0) mmol/L Calcium (8.4-10.2) mg/dL Phosphorus (2.5-4.5) mg/dL Magnesium (1.7-2.3) mg/dL Total Bilirubin (0.1-1.2) mg/dL AST (5-40) units/L ALT (7-56) units/L Alkaline Phosphatase (35-129) units/L Total Creatine Kinase (30-135) units/L Troponin T (0.00-0.029) ng/mL Total Protein (6.3-8.2) g/dL Albumin (3.9-5) g/dL Albumin/Globulin Ratio % TSH (0.270-4.200) mlU/mL Acetaminophen (10.0-30.0) ug/mL Plasma/Serum Alcohol (0-0.07) % 11/12/20 11/12/20 11/12/20 Range/Units 17:32 17:32 17:32 WBC (4.5-11.0) K/mm3 RBC (3.65-5.03) M/mm3 Hgb (10.1-14.3) gm/dl Hct (30.3-42.9) % MCV (79-97) fl MCH (28-32) pg MCHC (30-34) % RDW (13.2-15.2) % Plt Count (140-440) K/mm3 Lymph % (Auto) (13.4-35.0) % Brooke % (Auto) (0.0-7.3) % Eos % (Auto) (0.0-4.3) % Baso % (Auto) (0.0-1.8) % Lymph # (Auto) (1.2-5.4) K/mm3 Brooke # (Auto) (0.0-0.8) K/mm3 Eos # (Auto) (0.0-0.4) K/mm3 Baso # (Auto) (0.0-0.1) K/mm3 Seg Neutrophils % (40.0-70.0) % Seg Neutrophils # (1.8-7.7) K/mm3 PT (12.2-14.9) Sec. INR (0.87-1.13) APTT (24.2-36.6) Sec. Sodium 138 (137-145) mmol/L Potassium 3.3 L (3.6-5.0) mmol/L Chloride 95.7 L (98-107) mmol/L Carbon Dioxide 35 H (22-30) mmol/L Anion Gap 11 mmol/L BUN 5 L (7-17) mg/dL Creatinine 0.4 L (0.6-1.2) mg/dL Estimated GFR > 60 ml/min BUN/Creatinine Ratio 13 % Glucose 82 (65-100) mg/dL POC Glucose (70-105) mg/dL Lactic Acid 1.70 (0.7-2.0) mmol/L Calcium 9.7 (8.4-10.2) mg/dL Phosphorus (2.5-4.5) mg/dL Magnesium 1.70 (1.7-2.3) mg/dL Total Bilirubin 0.90 (0.1-1.2) mg/dL AST 38 (5-40) units/L ALT 41 (7-56) units/L Alkaline Phosphatase 158 H (35-129) units/L Total Creatine Kinase 69 (30-135) units/L Troponin T < 0.010 (0.00-0.029) ng/mL Total Protein 7.5 (6.3-8.2) g/dL Albumin 4.4 (3.9-5) g/dL Albumin/Globulin Ratio 1.4 % TSH 1.340 (0.270-4.200) mlU/mL Acetaminophen (10.0-30.0) ug/mL Plasma/Serum Alcohol (0-0.07) % 11/12/20 11/12/20 11/12/20 Range/Units 17:32 17:32 17:32 WBC (4.5-11.0) K/mm3 RBC (3.65-5.03) M/mm3 Hgb (10.1-14.3) gm/dl Hct (30.3-42.9) % MCV (79-97) fl MCH (28-32) pg MCHC (30-34) % RDW (13.2-15.2) % Plt Count (140-440) K/mm3 Lymph % (Auto) (13.4-35.0) % Brooke % (Auto) (0.0-7.3) % Eos % (Auto) (0.0-4.3) % Baso % (Auto) (0.0-1.8) % Lymph # (Auto) (1.2-5.4) K/mm3 Brooke # (Auto) (0.0-0.8) K/mm3 Eos # (Auto) (0.0-0.4) K/mm3 Baso # (Auto) (0.0-0.1) K/mm3 Seg Neutrophils % (40.0-70.0) % Seg Neutrophils # (1.8-7.7) K/mm3 PT (12.2-14.9) Sec. INR (0.87-1.13) APTT (24.2-36.6) Sec. Sodium (137-145) mmol/L Potassium (3.6-5.0) mmol/L Chloride (98-107) mmol/L Carbon Dioxide (22-30) mmol/L Anion Gap mmol/L BUN (7-17) mg/dL Creatinine (0.6-1.2) mg/dL Estimated GFR ml/min BUN/Creatinine Ratio % Glucose (65-100) mg/dL POC Glucose (70-105) mg/dL Lactic Acid (0.7-2.0) mmol/L Calcium (8.4-10.2) mg/dL Phosphorus 2.90 (2.5-4.5) mg/dL Magnesium (1.7-2.3) mg/dL Total Bilirubin (0.1-1.2) mg/dL AST (5-40) units/L ALT (7-56) units/L Alkaline Phosphatase (35-129) units/L Total Creatine Kinase (30-135) units/L Troponin T (0.00-0.029) ng/mL Total Protein (6.3-8.2) g/dL Albumin (3.9-5) g/dL Albumin/Globulin Ratio % TSH (0.270-4.200) mlU/mL Acetaminophen 5.0 L (10.0-30.0) ug/mL Plasma/Serum Alcohol < 0.01 (0-0.07) % - EKG Data -: EKG Interpreted by Nv EKG shows normal: sinus rhythm Rate: normal - EKG Data 11/12/20 18:42 EKG interpreted at 17: 55 Sinus rhythm, 92 bpm. Normal axis. Left ventricular hypertrophy the QTC is prolonged at 524 ms. There is motion artifact. DC interval within normal li mits. This is an abnormal EKG. The EKG is not a STEMI. - Radiology Data Radiology results: pending, report reviewed, image reviewed Critical care attestation.: If time is entered above; I have spent that time in minutes in the direct care of this critically ill patient, excluding procedure time. ED Disposition Clinical Impression: Hypokalemia, Prolonged QT interval, Acute encephalopathy, History of syncope Disposition: DC-09 OP ADMIT IP TO THIS HOSP Is pt being admited?: Yes Condition: Good - Assessment Assessment Interval: Baseline - Level of Consciousness 1a. Level of Consciousness: alert/keenly responsive - LOC Questions 1b. LOC Questions: answers both correctly (Patient able to give her name. Patient knows where she is currently located) - LOC Command 1c. LOC Commands: performs tasks correctly - Best Gaze 2. Best Gaze: normal - Visual 3. Visual: no visual loss - Facial Palsy 4. Facial Palsy: normal symmetrical movement - Motor Arm 5a. Motor Arm Left: no drift 5b. Motor Arm Right: no drift - Motor Leg 6a. Motor Leg Left: no drift 6b. Motor Leg Right: no drift - Limb Ataxia 7. Limb Ataxia: absent - Sensory 8. Sensory: normal - Best Language 9. Best Language: no aphasia - Dysarthria 10. Dysarthria: normal - Extinction and Inattention 11. Extinction/Inattention: no abnormality - Scoring Total Score: 0 Stroke Severity: No Stroke Symptoms
[2020-11-12] MEDS ORDERED: LACTATED RINGERS 1,000 ML IV ONE (17:10)
--- NOTE | 2020-11-12 17:44 | Cat Scan Report ---
CT head/brain wo con INDICATION: Altered Mental Status. TECHNIQUE: Routine CT head. All CT scans at this location are performed using CT dose reduction for A NEVA by means of automated exposure control. COMPARISON: None. FINDINGS: Intracranial: Daniels-white matter differentiation is maintained. No intracranial hemorrhage. No extra a xial collection. No hydrocephalus. No herniation. Periventricular and centrum semiovale white matter hypoattenuation most consistent with sequela of chronic microvascular disease. Sinuses: Paranasal sinuses and mastoid air cells are essentially clear. Orbits: Globes are intact. Calvarium: No acute fracture. IMPRESSION: 1. No acute intracranial abnormality. Signer Name: Blaine Zhang MD Signed: 11/12/2020 5:40 PM Workstation Name: [id number]
[2020-11-12 18:02] LABS: Basophils % (Auto) 0.3 % (0.0-1.8); Eosinophils % (Auto) 0.2 % (0.0-4.3); Hematocrit 39.7 % (30.3-42.9); Hemoglobin 13.6 gm/dl (10.1-14.3); Lymphocytes # (Auto) 0.8 K/mm3 (1.2-5.4); Lymphocytes % (Auto) 7.7 % (13.4-35.0); Mean Corpuscular HGB Conc 34 % (30-34); Mean Corpuscular Volume 97 fl (79-97); Monocytes # (Auto) 0.7 K/mm3 (0.0-0.8); Monocytes % (Auto) 6.2 % (0.0-7.3); Platelet Count 302 K/mm3 (140-440); Red Blood Count 4.09 M/mm3 (3.65-5.03); Red Cell Distribution Width 12.3 % (13.2-15.2)
--- NOTE | 2020-11-12 18:02 | XRay Report ---
CHEST 1 VIEW 11/12/2020 4:51 PM INDICATION / CLINICAL INFORMATION: Altered Mental Status. COMPARISON: 07/30/2020 FINDINGS: SUPPORT DEVICES: None. HEART / MEDIASTINUM: No significant abnormality. LUNGS / PLEURA: No significant pulmonary or pleural abnormality. No pneumothorax. ADDITIONAL FINDINGS: Scoliosis IMPRESSION: 1. No acute findings. Signer Name: Jaquan Ardon MD Signed: 11/12/2020 5:58 PM Workstation Name: [id number]
[2020-11-12 18:09] LABS: INR 0.96 (0.87-1.13)
[2020-11-12 18:10] LABS: Partial Thromboplastin Time 25.6 Sec. (24.2-36.6)
[2020-11-12 18:38] LABS: Alanine Aminotransferase 41 units/L (7-56); Albumin 4.4 g/dL (3.9-5); Blood Urea Nitrogen 5 mg/dL (7-17); Calcium 9.7 mg/dL (8.4-10.2); Hemolysis Index 10
[2020-11-12 18:39] LABS: BUN/Creatinine Ratio 13
[2020-11-12] MEDS ORDERED: POTASSIUM CHLORIDE ER 20 MEQ TAB PO ONE (18:41)
[2020-11-12 18:59] LABS: Bilirubin,Urine NEG (Negative); Blood,Urine NEG (Negative); Color,Urine Yellow (Yellow); Protein,Urine <15 mg/dL mg/dL (Negative); Urobilinogen,Urine < 2.0 mg/dL (<2.0)
[2020-11-12] MEDS ORDERED: hydrALAZINE 20 MG/1 ML INJ IV ONE (19:42)
[2020-11-12 19:50] LABS: ABG Base Excess 4.2 mmol/L (-2.0-3.0); ABG HCO3 28.5 mmol/L (20.0-26.0); ABG Methemoglobin 0.4 % (0.0-1.5); ABG PCO2 41.7 mm Hg; ABG PH 7.453 pH Units (7.350-7.450); ABG PO2 156.7 mm Hg (80.0-90.0)
[2020-11-12] MEDS: POTASSIUM CHLORIDE 10 MEQ 10 MEQ/100 ML BAG IV SCH ×2 (21:10→22:28)
[2020-11-12] MEDS ORDERED: INSULIN LISPRO 100 UNIT/ML SUB-Q ONE (21:42)
--- NOTE | 2020-11-13 06:57 | History and Physical Report ---
History of Present Illness Date of examination: 11/12/20 Date of admission: 11/12/20 18:50 Chief complaint: SYNcope x1 this AM History of present illness: 70-year-old female with history of diabetes, diabetic ketoacidosis, SIRS, hypokalemia, hypophosphatemia, and hypertension brought to the hospital today by emergency medical services for passing out. She does not know the day of the week, believes that it is Tuesday (it is currently Tuesday), thinks that it is 2017, although she is able to list her name, knows that she is in the hospital, and knows who the current president is. Apparently passed out 3 dayd ago also No Chest pain Patient was also hypoglyceic on field and amp of D50w was given Slightly altered sensoriu on arrival - Past Medical History --Hypertension: Yes (20 years ago) --Diabetes: Yes - Social History Smoking Status: Never Smoker Family Hx Htn Review of Systems ROS: Stated complaint: HYPOGLYCEMIA Other details as noted in HPI Comment: All other systems reviewed and negative Cardiovascular: syncope (Possible syncope) Neurological: confusion Medications and Allergies Allergies Allergy/AdvReac Type Severity Reaction Status Date / Time No Known Allergies Allergy Verified 07/30/20 14:37 Home Medications Medication Instructions Recorded Confirmed Last Taken Type Acetaminophen [Acetaminophen TAB] 325 mg PO Q4H PRN #15 tablet 12/18/18 11/12/20 Unknown Rx Famotidine [Pepcid] 10 mg PO BID #30 tablet 12/18/18 11/12/20 Unknown Rx Insulin Aspart (Nf) [NovoLOG 1 dose SQ AC PRN #1 pen 12/18/18 11/12/20 Unknown Rx Flexpen] Insulin Glargine [Lantus VIAL] 40 units SUB-Q QHS #30 units 12/18/18 11/12/20 Unknown Rx Metoprolol [Lopressor TAB] 25 mg PO BID #60 tablet 12/18/18 11/12/20 Unknown Rx Nitrofurantoin [place]/M-Cryst 100 mg PO Q12HR 7 Days #14 capsule 07/30/20 11/12/20 Unknown Rx [Macrobid CAP] Potassium Chloride [K-Dur] 10 meq PO QDAY #5 tablet 07/30/20 11/12/20 Unknown Rx Active Meds: Active Medications Dextrose (Dextrose 50% In Water (25gm) 50 Ml Vial) 50 gm IV Q30MIN PRN; Protocol PRN Reason: Hypoglycemia Exam - Constitutional Vitals: Temp Pulse Resp BP Pulse Ox 97.7 F 107 H 20 154/92 99 11/13/20 05:06 11/13/20 05:06 11/13/20 05:06 11/13/20 05:06 11/13/20 05:06 General appearance: Present: no acute distress, well-nourished - EENT Eyes: Present: PERRL ENT: hearing intact, clear oral mucosa - Neck Neck: Present: supple, normal ROM - Respiratory Respiratory effort: normal Respiratory: bilateral: CTA - Cardiovascular Heart rate: 78 Rhythm: regular Heart Sounds: Present: S1 & S2. Absent: rub, click - Extremities Extremities: pulses symmetrical, No edema Peripheral Pulses: within normal limits - Abdominal General gastrointestinal: Present: soft, non-tender, non-distended, normal bowel sounds Female genitourinary: Present: normal - Integumentary Integumentary: Present: clear, warm, dry - Musculoskeletal Musculoskeletal: gait normal, strength equal bilaterally - Psychiatric Psychiatric: appropriate mood/affect, intact judgment & insight (Alert x 2 ), cooperative - Neurologic Neurologic: CNII-XII intact, moves all extremities HEART Score - HEART Score History: Moderately suspicious EKG: Non-specific Age: > 65 Risk factors: 1-2 risk factors Troponin: Troponin T < 0.010 ng/mL (0.00-0.029) 11/12/20 17:32 Troponin: < normal limit HEART Score: 5 - Critical Actions Critical Actions: 4-6 pts:12-16.6% risk of adverse cardiac event. Should be admitted Results - Labs CBC & Chem 7: 11/12/20 17:32 11/12/20 17:32 Labs: Laboratory Last Values WBC 10.5 K/mm3 (4.5-11.0) 11/12/20 17:32 RBC 4.09 M/mm3 (3.65-5.03) 11/12/20 17:32 Hgb 13.6 gm/dl (10.1-14.3) 11/12/20 17:32 Hct 39.7 % (30.3-42.9) 11/12/20 17:32 MCV 97 fl (79-97) 11/12/20 17:32 MCH 33 pg (28-32) H 11/12/20 17:32 MCHC 34 % (30-34) 11/12/20 17:32 RDW 12.3 % (13.2-15.2) L 11/12/20 17:32 Plt Count 302 K/mm3 (140-440) 11/12/20 17:32 Lymph % (Auto) 7.7 % (13.4-35.0) L 11/12/20 17:32 [place] % (Auto) 6.2 % (0.0-7.3) 11/12/20 17:32 Eos % (Auto) 0.2 % (0.0-4.3) 11/12/20 17:32 Baso % (Auto) 0.3 % (0.0-1.8) 11/12/20 17:32 Lymph # (Auto) 0.8 K/mm3 (1.2-5.4) L 11/12/20 17:32 [place] # (Auto) 0.7 K/mm3 (0.0-0.8) 11/12/20 17:32 Eos # (Auto) 0.0 K/mm3 (0.0-0.4) 11/12/20 17:32 Baso # (Auto) 0.0 K/mm3 (0.0-0.1) 11/12/20 17:32 Seg Neutrophils % 85.6 % (40.0-70.0) H 11/12/20 17:32 Seg Neutrophils # 9.0 K/mm3 (1.8-7.7) H 11/12/20 17:32 PT 12.6 Sec. (12.2-14.9) 11/12/20 17:32 INR 0.96 (0.87-1.13) 11/12/20 17:32 APTT 25.6 Sec. (24.2-36.6) 11/12/20 17:32 ABG pH 7.453 pH Units (7.350-7.450) H 11/12/20 19:36 ABG pCO2 41.7 mm Hg 11/12/20 19:36 ABG pO2 156.7 mm Hg (80.0-90.0) H 11/12/20 19:36 ABG HCO3 28.5 mmol/L (20.0-26.0) H 11/12/20 19:36 ABG O2 Saturation 99.0 % (95.0-99.0) 11/12/20 19:36 ABG O2 Content 18.8 (0.0-44) 11/12/20 19:36 ABG Base Excess 4.2 mmol/L (-2.0-3.0) H 11/12/20 19:36 ABG Hemoglobin 13.6 gm/dl (12.0-16.0) 11/12/20 19:36 ABG Carboxyhemoglobin 1.5 % (0.0-5.0) 11/12/20 19:36 ABG Methemoglobin 0.4 % (0.0-1.5) 11/12/20 19:36 Oxyhemoglobin 97.1 % (95.0-99.0) 11/12/20 19:36 FiO2 21 % 11/12/20 19:36 Sodium 138 mmol/L (137-145) 11/12/20 17:32 Potassium 3.3 mmol/L (3.6-5.0) L 11/12/20 17:32 Chloride 95.7 mmol/L (98-107) L 11/12/20 17:32 Carbon Dioxide 35 mmol/L (22-30) H 11/12/20 17:32 Anion Gap 11 mmol/L 11/12/20 17:32 BUN 5 mg/dL (7-17) L 11/12/20 17:32 Creatinine 0.4 mg/dL (0.6-1.2) L 11/12/20 17:32 Estimated GFR > 60 ml/min 11/12/20 17:32 BUN/Creatinine Ratio 13 % 11/12/20 17:32 Glucose 82 mg/dL (65-100) 11/12/20 17:32 POC Glucose 244 mg/dL (70-105) H 11/12/20 21:12 Lactic Acid 1.70 mmol/L (0.7-2.0) 11/12/20 17:32 Calcium 9.7 mg/dL (8.4-10.2) 11/12/20 17:32 Phosphorus 2.90 mg/dL (2.5-4.5) 11/12/20 17:32 Magnesium 1.70 mg/dL (1.7-2.3) 11/12/20 17:32 Total Bilirubin 0.90 mg/dL (0.1-1.2) 11/12/20 17:32 AST 38 units/L (5-40) 11/12/20 17:32 ALT 41 units/L (7-56) 11/12/20 17:32 Alkaline Phosphatase 158 units/L (35-129) H 11/12/20 17:32 Ammonia 33.0 umol/L (25-60) 11/12/20 17:32 Total Creatine Kinase 69 units/L (30-135) 11/12/20 17:32 Troponin T < 0.010 ng/mL (0.00-0.029) 11/12/20 17:32 Total Protein 7.5 g/dL (6.3-8.2) 11/12/20 17:32 Albumin 4.4 g/dL (3.9-5) 11/12/20 17:32 Albumin/Globulin Ratio 1.4 % 11/12/20 17:32 TSH 1.340 mlU/mL (0.270-4.200) 11/12/20 17:32 Urine Color Yellow (Yellow) 11/12/20 Unknown Urine Turbidity Slightly-cloudy (Clear) 11/12/20 Unknown Urine pH 7.0 (5.0-7.0) 11/12/20 Unknown Ur Specific [place] 1.006 (1.003-1.030) 11/12/20 Unknown Urine Protein <15 mg/dl mg/dL (Negative) 11/12/20 Unknown Urine Glucose (UA) >=500 mg/dL (Negative) 11/12/20 Unknown Urine Ketones Neg mg/dL (Negative) 11/12/20 Unknown Urine Blood Neg (Negative) 11/12/20 Unknown Urine Nitrite Neg (Negative) 11/12/20 Unknown Urine Bilirubin Neg (Negative) 11/12/20 Unknown Urine Urobilinogen < 2.0 mg/dL (<2.0) 11/12/20 Unknown Ur Leukocyte Esterase Tr (Negative) 11/12/20 Unknown Urine WBC (Auto) 2.0 /HPF (0.0-6.0) 11/12/20 Unknown Urine RBC (Auto) 2.0 /HPF (0.0-6.0) 11/12/20 Unknown U Epithel Cells (Auto) 1.0 /HPF (0-13.0) 11/12/20 Unknown Salicylates < 0.3 mg/dL (2.8-20.0) L 11/12/20 Unknown Acetaminophen 5.0 ug/mL (10.0-30.0) L 11/12/20 17:32 Plasma/Serum Alcohol < 0.01 % (0-0.07) 11/12/20 17:32 Blood Type B POSITIVE 11/12/20 17:42 Antibody Screen Negative 11/12/20 17:42 Short CBC 11/12/20 Range/Units 17:32 WBC 10.5 (4.5-11.0) K/mm3 Hgb 13.6 (10.1-14.3) gm/dl Hct 39.7 (30.3-42.9) % Plt Count 302 (140-440) K/mm3 BMP 11/12/20 17:32 Sodium 138 Potassium 3.3 L Chloride 95.7 L Carbon Dioxide 35 H BUN 5 L Creatinine 0.4 L Glucose 82 Calcium 9.7 Cardiac Enzymes 11/12/20 Range/Units 17:32 Total Creatine Kinase 69 (30-135) units/L Troponin T < 0.010 (0.00-0.029) ng/mL Liver Function 11/12/20 Range/Units 17:32 Total Bilirubin 0.90 (0.1-1.2) mg/dL AST 38 (5-40) units/L ALT 41 (7-56) units/L Alkaline Phosphatase 158 H (35-129) units/L Albumin 4.4 (3.9-5) g/dL Urine 11/12/20 Range/Units Unknown Urine Color Yellow (Yellow) Urine pH 7.0 (5.0-7.0) Ur Specific [place] 1.006 (1.003-1.030) Urine Protein <15 mg/dl (Negative) mg/dL Urine Glucose (UA) >=500 (Negative) mg/dL Microbiology: Microbiology 11/12/20 17:32 Peripheral/Venous Blood Culture - Preliminary Culture in Progress 11/12/20 17:32 Peripheral/Venous Blood Culture - Preliminary Culture in Progress - Imaging and Cardiology EKG: report reviewed Imaging and Cardiology: - EKG Data -: EKG Interpreted by Co EKG shows normal: sinus rhythm Rate: normal - EKG Data 11/12/20 18:42 EKG interpreted at 17: 55 Sinus rhythm, 92 bpm. Normal axis. Left ventricular hypertrophy the QTC is prolonged at 524 ms. There is motion artifact. [place] interval within normal limits. This is an abnormal EKG. The EKG is not a STEMI. Pena/IV: Voiding Method Bedside Commode Assessment and Plan Advance Directives: Yes (Full code) VTE prophylaxis?: Chemical Plan of care discussed with patient/family: Yes - Patient Problems (1) Acute encephalopathy Current Visit: Yes Status: Acute Plan to address problem: Sec to hypoglycemia Corrected (2) Syncope Current Visit: Yes Status: Acute Qualifiers: Syncope type: unspecified Qualified Code(s): R55 - Syncope and collapse Plan to address problem: Syncope work up Possible sec to Hypoglycemia (3) Hypokalemia Current Visit: Yes Status: Acute Plan to address problem: Supplemented (4) HTN (hypertension) Current Visit: Yes Status: Chronic Qualifiers: Hypertension type: essential hypertension Qualified Code(s): I10 - Essential (primary) hypertension Plan to address problem: Cont antihypertensives (5) IDDM (insulin dependent diabetes mellitus) Current Visit: Yes Status: Chronic Plan to address problem: Cont Insulin and coverage Check A1c (6) DVT prophylaxis Current Visit: Yes Status: Acute Plan to address problem: On Heparin and GI prophylaxis
[2020-11-13 09:56] LABS: Blood Urea Nitrogen 5 mg/dL (7-17); Calcium 9.1 mg/dL (8.4-10.2); Hemolysis Index 13
[2020-11-13 09:58] LABS: BUN/Creatinine Ratio 17
[2020-11-13] MEDS ORDERED: METOPROLOL TARTRATE 25 MG TAB PO SCH ×2 (10:00→12:35)
[2020-11-13] MEDS ORDERED: HEPARIN 5,000 UNIT/1 ML VIAL SUB-Q SCH (10:00)
[2020-11-13] MEDS: INSULIN REGULAR, HUMAN 100 UNITS/1 ML SUB-Q SCH ×2 (11:53→16:48)
[2020-11-13] MEDS ORDERED: NON-FORMULARY EACH (Insulin Aspart (Nf) 100 UNIT/ML Insuln.Pen) SQ PRN (12:27)
[2020-11-13] MEDS ORDERED: SODIUM CHLORIDE 0.9% 1000 ML 500 ML IV ONE (12:30)
--- NOTE | 2020-11-13 12:31 | Discharge Summary ---
Providers - Providers Date of Admission: 11/12/20 18:50 Date of discharge: 11/13/20 Attending physician: MIRNA DEL ROSARIO 11/13/20 00:55 Consult to Dietitian/Nutrition [CONS] Routine Physician Instructions: Reason For Exam: Reason for Consult: Malnutrition 11/13/20 08:48 Physical Therapy Evaluation and Treat [CONS] Routine Comment: Reason For Exam: Debility 11/13/20 08:54 Consult to Dietitian/Nutrition [CONS] Routine Physician Instructions: Reason For Exam: Reason for Consult: Malnutrition Primary care physician: MEDICAL DEVICE Hospitalization Condition: Good Disposition: DC/TX-06 HOME UNDER HOME HLTH Final Discharge Diagnosis (Prints w/discharge instructions): Syncope due to hypoglycemia, encephalopathy likely due to uncontrolled blood glucose, diabetes mellitus type 2, hypertension, hypokalemia, mild hyponatremia, severe protein calorie malnutrition. Time spent for discharge: 34 minutes Core Measure Documentation - Palliative Care Palliative Care/ Comfort Measures: Not Applicable - Core Measures Any of the following diagnoses?: none Exam - Constitutional Vitals: Temp Pulse Resp BP Pulse Ox 97.9 F 91 H 18 185/106 100 11/13/20 08:41 11/13/20 12:16 11/13/20 08:41 11/13/20 12:16 11/13/20 12:16 Plan Activity: advance as tolerated Weight Bearing Status: Weight Bear as Tolerated Diet: diabetic, other (Nutrition supplements) Special Instructions: record blood sugar diary, physical therapy, home health RN Durable Medical Equipment Needed Upon Discharge: Walker-Rolling Follow up with: ROCIO MARLEY MD [Primary Care Provider] - 3-5 Days JB CHRISTIE MD [Staff Physician] - 7 Days Prescriptions: amLODIPine 10 mg PO QDAY #30 tablet Insulin Regular, Human [HumuLIN R] 0 units SUB-Q ACHS 30 Days units Metoprolol [Lopressor TAB] 50 mg PO BID #60 tablet
[2020-11-13] MEDS ORDERED: hydrALAZINE 20 MG/1 ML INJ IV PRN (12:34)
[2020-11-13] MEDS ORDERED: amLODIPine 10 MG TAB PO SCH (13:00)
[2020-11-13] MEDS ORDERED: METOPROLOL TARTRATE 50 MG TAB PO SCH (14:00)
[2020-11-13 15:55] VITALS: BP 140/86
[2020-11-13] MEDS ORDERED: INSULIN GLARGINE 100 UNITS/ML SUB-Q SCH (22:00)
--- NOTE | 2020-11-14 11:20 | Electrocardiograph Report ---
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
== END 2020-11-13 20:00 | disposition home health service (06) ==
LOC: ED 15:49 → 4A 18:50
PROVIDERS: ADMIT Internal Medicine; ATTEND Internal Medicine
DX: G93.40 Encephalopathy, unspecified (principal); I10 Essential (primary) hypertension; E87.6 Hypokalemia; E11.9 Type 2 diabetes mellitus without complications; R94.31 Abnormal electrocardiogram [ECG] [EKG]; R55 Syncope and collapse; Z79.4 Long term (current) use of insulin; Z87.898 Personal history of other specified conditions; R41.82 Altered mental status, unspecified
CPT/HCPCS: 36415; 70450; 71045; 80048; 80053; 81001; 82140; 82550; 82803; 82962; 83735; 84100; 84443; 84484; 85025; 85610; 85730; 86850; 86900; 86901; 87040; 87076; 87086; 87186; 93005; 96365; 96366; 96372; 96375; 97162; 99285; G0378; J0360; J1644; J3480; J7120; 80320; G0480; J1815

== ENCOUNTER 2021-01-24 01:21 | Emergency (ER) | payer MEDICARE ==
[2021-01-24] MEDS ORDERED: SODIUM CHLORIDE 0.9% 1000 ML 1,000 ML IV ONE ×2 (03:19→04:46)
[2021-01-24 03:57] LABS: Basophils % (Auto) 0.2 % (0.0-1.8); Eosinophils % (Auto) 0.1 % (0.0-4.3); Hematocrit 42.5 % (30.3-42.9); Hemoglobin 14.5 gm/dl (10.1-14.3); Lymphocytes # (Auto) 1.5 K/mm3 (1.2-5.4); Lymphocytes % (Auto) 12.8 % (13.4-35.0); Mean Corpuscular HGB Conc 34 % (30-34); Mean Corpuscular Volume 97 fl (79-97); Monocytes # (Auto) 0.9 K/mm3 (0.0-0.8); Monocytes % (Auto) 7.8 % (0.0-7.3); Platelet Count 202 K/mm3 (140-440); Red Blood Count 4.36 M/mm3 (3.65-5.03); Red Cell Distribution Width 11.6 % (13.2-15.2)
--- NOTE | 2021-01-24 04:02 | Emergency Department Report ---
- General Chief complaint: Weakness Stated complaint: HYPERGLYCEMIC Time Seen by Provider: 01/24/21 03:58 Source: patient, EMS Mode of arrival: Ambulatory Limitations: No Limitations - History of Present Illness Initial comments: Patient states she woke up to use the restroom on her back to bed when she got weak and she fell out. No loc, no injuries. Patient states several similar episodes in the past. no n/v, no fever, chills or night sweats, no chest pain or sob. H/o insulin dependent diabetes. MD Complaint: generalized weakness - Related Data Previous Rx's Medication Instructions Recorded Last Taken Type Insulin Aspart (Nf) [NovoLOG 1 dose SQ AC PRN #1 pen 12/18/18 Unknown Rx Flexpen] Potassium Chloride [K-Dur] 10 meq PO QDAY #5 tablet 07/30/20 Unknown Rx Insulin Regular, Human [HumuLIN R] 0 units SUB-Q ACHS 30 Days units 11/13/20 Unknown Rx Aspirin [Aspirin BABY CHEW TAB] 81 mg PO QDAY #30 tab.chew 02/10/21 Unknown Rx AtorvaSTATin [Lipitor] 40 mg PO QHS #30 tablet 02/10/21 Unknown Rx Insulin Glargine [Lantus VIAL] 15 units SUB-Q QHS 30 Days units 02/10/21 Unknown Rx Metoprolol [Lopressor TAB] 50 mg PO BID #60 tablet 02/10/21 Unknown Rx Pantoprazole [Protonix TAB] 40 mg PO QDAY #30 tablet 02/10/21 Unknown Rx amLODIPine 10 mg PO QDAY #30 tablet 02/10/21 Unknown Rx Allergies Allergy/AdvReac Type Severity Reaction Status Date / Time No Known Allergies Allergy Verified 02/06/21 16:13 ED Review of Systems ROS: Stated complaint: HYPERGLYCEMIC Other details as noted in HPI Comment: All other systems reviewed and negative Constitutional: denies: chills, fever Eyes: denies: eye pain, eye discharge, vision change ENT: denies: ear pain, throat pain Respiratory: denies: cough, shortness of breath, wheezing Cardiovascular: denies: chest pain, palpitations, dyspnea on exertion Endocrine: no symptoms reported Gastrointestinal: denies: abdominal pain, nausea, diarrhea Genitourinary: denies: urgency Musculoskeletal: denies: back pain, joint swelling, arthralgia Skin: denies: rash, lesions Neurological: weakness. denies: headache Psychiatric: denies: anxiety Hematological/Lymphatic: denies: easy bleeding, easy bruising ED Past Medical Hx - Past Medical History Hx Hypertension: Yes Hx Diabetes: Yes - Surgical History Past Surgical History?: No - Social History Smoking Status: Unknown if ever smoked Substance Use Type: None - Medications Home Medications: Home Medications Medication Instructions Recorded Confirmed Last Taken Type Insulin Aspart (Nf) [NovoLOG 1 dose SQ AC PRN #1 pen 12/18/18 11/12/20 Unknown Rx Flexpen] Potassium Chloride [K-Dur] 10 meq PO QDAY #5 tablet 07/30/20 11/12/20 Unknown Rx Insulin Regular, Human [HumuLIN R] 0 units SUB-Q ACHS 30 Days units 11/13/20 Unknown Rx Aspirin [Aspirin BABY CHEW TAB] 81 mg PO QDAY #30 tab.chew 02/10/21 Unknown Rx AtorvaSTATin [Lipitor] 40 mg PO QHS #30 tablet 02/10/21 Unknown Rx Insulin Glargine [Lantus VIAL] 15 units SUB-Q QHS 30 Days units 02/10/21 Unknown Rx Metoprolol [Lopressor TAB] 50 mg PO BID #60 tablet 02/10/21 Unknown Rx Pantoprazole [Protonix TAB] 40 mg PO QDAY #30 tablet 02/10/21 Unknown Rx amLODIPine 10 mg PO QDAY #30 tablet 02/10/21 Unknown Rx ED Physical Exam - General Limitations: No Limitations General appearance: alert, in no apparent distress - Head Head exam: Present: atraumatic, normocephalic - Eye Eye exam: Present: normal appearance - ENT ENT exam: Present: mucous membranes moist - Neck Neck exam: Present: normal inspection - Respiratory Respiratory exam: Present: normal lung sounds bilaterally. Absent: respiratory distress - Cardiovascular Cardiovascular Exam: Present: regular rate, normal rhythm. Absent: systolic murmur, diastolic murmur, rubs, gallop - GI/Abdominal GI/Abdominal exam: Present: soft, normal bowel sounds - Extremities Exam Extremities exam: Present: normal inspection - Back Exam Back exam: Present: normal inspection - Neurological Exam Neurological exam: Present: alert, oriented X3 - Psychiatric Psychiatric exam: Present: normal affect, normal mood - Skin Skin exam: Present: warm, dry, intact, normal color. Absent: rash - Assessment Assessment Interval: Baseline - Level of Consciousness 1a. Level of Consciousness: alert/keenly responsive - LOC Questions 1b. LOC Questions: answers both correctly - LOC Command 1c. LOC Commands: performs tasks correctly - Best Gaze 2. Best Gaze: normal - Visual 3. Visual: no visual loss - Facial Palsy 4. Facial Palsy: normal symmetrical movement - Motor Arm 5a. Motor Arm Left: no drift 5b. Motor Arm Right: no drift - Motor Leg 6a. Motor Leg Left: no drift 6b. Motor Leg Right: no drift - Limb Ataxia 7. Limb Ataxia: absent - Sensory 8. Sensory: normal - Best Language 9. Best Language: no aphasia - Dysarthria 10. Dysarthria: normal - Extinction and Inattention 11. Extinction/Inattention: no abnormality - Scoring Total Score: 0 Stroke Severity: No Stroke Symptoms ED Course Vital Signs 01/24/21 01/24/21 01/24/21 01:38 01:43 01:45 Temperature 97.9 F Pulse Rate 113 H 113 H 112 H Respiratory 9 L 16 9 L Rate Blood Pressure 142/74 143/84 Blood Pressure [Right] O2 Sat by Pulse 100 100 100 Oximetry 01/24/21 01/24/21 01/24/21 02:01 02:15 03:01 Temperature Pulse Rate 111 H 110 H 105 H Respiratory 13 12 12 Rate Blood Pressure 118/84 117/81 134/86 Blood Pressure [Right] O2 Sat by Pulse 100 100 100 Oximetry 01/24/21 01/24/21 01/24/21 04:01 05:00 06:01 Temperature Pulse Rate 100 H 96 H 86 Respiratory 15 12 11 L Rate Blood Pressure 112/85 126/81 143/83 Blood Pressure [Right] O2 Sat by Pulse 100 100 Oximetry 01/24/21 06:55 Temperature 98 F Pulse Rate 89 Respiratory 13 Rate Blood Pressure Blood Pressure 145/87 [Right] O2 Sat by Pulse 98 Oximetry ED Medical Decision Making - Lab Data Result diagrams: 01/24/21 03:27 01/24/21 03:27 Critical care attestation.: If time is entered above; I have spent that time in minutes in the direct care of this critically ill patient, excluding procedure time. ED Disposition Clinical Impression: Weakness Hyperglycemia due to type 2 diabetes mellitus Qualifiers: Diabetes mellitus nursing home insulin use: without nursing home use Qualified Code(s): E11.65 - Type 2 diabetes mellitus with hyperglycemia Disposition: DC-01 TO HOME OR SELFCARE Is pt being admited?: No Does the pt Need Aspirin: No Condition: Stable Instructions: Diabetes Mellitus Type 2 in Adults (ED) Referrals: RICK DELVALLE MD [Primary Care Provider] - 3-5 Days
[2021-01-24 04:30] LABS: Calcium 9.5 mg/dL (8.4-10.2)
[2021-01-24 06:56] VITALS: BP 145/87
--- NOTE | 2021-01-29 09:38 | Electrocardiograph Report ---
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
== END 2021-01-24 07:40 | disposition home or self-care (01) ==
LOC: ED 01:21
DX: E11.65 Type 2 diabetes mellitus with hyperglycemia (principal); R53.1 Weakness; I10 Essential (primary) hypertension; Z79.4 Long term (current) use of insulin; Z79.899 Other long term (current) drug therapy
CPT/HCPCS: 36415; 80048; 82962; 84484; 85025; 93005; 96360; 96361; 99284; J7030

== ENCOUNTER 2021-02-06 15:30 | Observation (INO) | payer MEDICARE ==
[2021-02-06 17:29] LABS: Basophils % (Auto) 0.5 % (0.0-1.8); Eosinophils # (Auto) 0.1 K/mm3 (0.0-0.4); Eosinophils % (Auto) 1.1 % (0.0-4.3); Hematocrit 37.8 % (30.3-42.9); Lymphocytes # (Auto) 2.2 K/mm3 (1.2-5.4); Lymphocytes % (Auto) 31.7 % (13.4-35.0); Mean Corpuscular HGB Conc 34 % (30-34); Mean Corpuscular Volume 96 fl (79-97); Monocytes # (Auto) 0.6 K/mm3 (0.0-0.8); Monocytes % (Auto) 7.8 % (0.0-7.3); Platelet Count 234 K/mm3 (140-440); Red Blood Count 3.94 M/mm3 (3.65-5.03); Red Cell Distribution Width 11.7 % (13.2-15.2)
[2021-02-06 17:52] LABS: Alanine Aminotransferase 28 units/L (7-56); Albumin 3.5 g/dL (3.9-5); Blood Urea Nitrogen 8 mg/dL (7-17); Calcium 8.8 mg/dL (8.4-10.2); Hemolysis Index 2
[2021-02-06 17:54] LABS: BUN/Creatinine Ratio 20
[2021-02-06] MEDS ORDERED: POTASSIUM CHLORIDE ER 20 MEQ TAB PO ONE ×2 (18:24→22:25)
[2021-02-06] MEDS ORDERED: SODIUM CHLORIDE 0.9% 1000 ML 1,000 ML IV ONE (22:43)
--- NOTE | 2021-02-06 22:54 | Emergency Department Report ---
ED Syncope HPI - General Chief Complaint: Hyperglycemia Stated Complaint: HYPERGLYCEMIA Time Seen by Provider: 02/06/21 22:06 - History of Present Illness Initial Comments: CC: "I passed out." HPI: This is a 70 yo female with hx of HTN, DM, alcohol dependence who presents after syncopal episode. She has been weak and tired. She has had weight loss. She denies pain. She denies chest pain or palpitations. She denies abdominal pain, headache, leg pain. She drinks several glasses of alcohol daily. Her last drink was few days ago. She presents via EMS. Syncopal episode witnessed per fianc. She was not vaccinated for COVID-19. Patient was admitted and evaluated for syncopal episode in November of this year. Diagnosed with malnutrition. Timing/Prior Episodes: no prior history Precipitating Factors: Positive: none Loss of Consciousness: brief (seconds) Current Symptoms: back to normal - Related Data Allergies/Adverse Reactions: Allergies No Known Allergies Allergy (Verified 02/06/21 16:13) Home Medications: Ambulatory Orders Famotidine [Pepcid] 10 mg PO BID #30 tablet 12/18/18 Insulin Aspart (Nf) [NovoLOG Flexpen] 1 dose SQ AC PRN #1 pen 12/18/18 Potassium Chloride [K-Dur] 10 meq PO QDAY #5 tablet 07/30/20 Insulin Glargine [Lantus VIAL] 15 units SUB-Q QHS #30 units 11/13/20 Insulin Regular, Human [HumuLIN R] 0 units SUB-Q ACHS 30 Days units 11/13/20 Metoprolol [Lopressor TAB] 50 mg PO BID #60 tablet 11/13/20 amLODIPine 10 mg PO QDAY #30 tablet 11/13/20 ED Review of Systems ROS: Stated complaint: HYPERGLYCEMIA Other details as noted in HPI Comment: All other systems reviewed and negative Constitutional: denies: chills, fever, malaise Respiratory: denies: cough, shortness of breath Cardiovascular: syncope. denies: chest pain, palpitations Gastrointestinal: denies: abdominal pain, nausea, vomiting ED Past Medical Hx - Past Medical History Previous Medical History?: Yes Hx Hypertension: Yes Hx Diabetes: Yes - Surgical History Past Surgical History?: No - Social History Smoking Status: Unknown if ever smoked Substance Use Type: Alcohol - Medications Home Medications: Home Medications Medication Instructions Recorded Confirmed Last Taken Type Famotidine [Pepcid] 10 mg PO BID #30 tablet 12/18/18 11/12/20 Unknown Rx Insulin Aspart (Nf) [NovoLOG 1 dose SQ AC PRN #1 pen 12/18/18 11/12/20 Unknown Rx Flexpen] Potassium Chloride [K-Dur] 10 meq PO QDAY #5 tablet 07/30/20 11/12/20 Unknown Rx Insulin Glargine [Lantus VIAL] 15 units SUB-Q QHS #30 units 11/13/20 11/12/20 Unknown Rx Insulin Regular, Human [HumuLIN R] 0 units SUB-Q ACHS 30 Days units 11/13/20 Unknown Rx Metoprolol [Lopressor TAB] 50 mg PO BID #60 tablet 11/13/20 Unknown Rx amLODIPine 10 mg PO QDAY #30 tablet 11/13/20 Unknown Rx ED Physical Exam - General Limitations: No Limitations General appearance: alert, in no apparent distress, cachectic, other (Cachectic frail appears ill) - Head Head exam: Present: atraumatic, normocephalic - Eye Eye exam: Present: normal appearance - ENT ENT exam: Present: mucous membranes moist - Neck Neck exam: Present: normal inspection, full ROM - Respiratory Respiratory exam: Present: normal lung sounds bilaterally. Absent: respiratory distress, wheezes, rales, rhonchi, stridor - Cardiovascular Cardiovascular Exam: Present: regular rate, normal rhythm, normal heart sounds. Absent: systolic murmur, diastolic murmur, rubs, gallop - GI/Abdominal GI/Abdominal exam: Present: soft, normal bowel sounds. Absent: distended, tenderness, guarding, rebound - Extremities Exam Extremities exam: Present: normal inspection - Neurological Exam Neurological exam: Present: alert, oriented X3 - Psychiatric Psychiatric exam: Present: normal affect, normal mood - Skin Skin exam: Present: warm, dry, intact, normal color. Absent: rash ED Course Vital Signs 02/06/21 02/06/21 02/06/21 16:13 23:02 23:15 Temperature 97.9 F Pulse Rate 92 H 81 74 Respiratory 16 10 L 15 Rate Blood Pressure 157/96 157/96 Blood Pressure 122/77 [Right] O2 Sat by Pulse 97 100 100 Oximetry 02/06/21 02/06/21 02/07/21 23:31 23:45 00:01 Temperature Pulse Rate 71 67 70 Respiratory 22 12 17 Rate Blood Pressure 157/96 157/96 167/93 Blood Pressure [Right] O2 Sat by Pulse 100 100 99 Oximetry 02/07/21 02/07/21 02/07/21 00:15 00:31 00:45 Temperature Pulse Rate 72 87 87 Respiratory 12 9 L 11 L Rate Blood Pressure 167/93 167/93 167/93 Blood Pressure [Right] O2 Sat by Pulse 99 98 100 Oximetry 02/07/21 02/07/21 02/07/21 01:01 01:15 01:45 Temperature Pulse Rate 86 83 87 Respiratory 10 L 16 12 Rate Blood Pressure 164/92 164/92 171/93 Blood Pressure [Right] O2 Sat by Pulse 100 100 100 Oximetry 02/07/21 02:01 Temperature Pulse Rate 88 Respiratory 13 Rate Blood Pressure 161/94 Blood Pressure [Right] O2 Sat by Pulse 100 Oximetry ED Medical Decision Making - Lab Data Result diagrams: 02/06/21 17:09 02/06/21 17:09 Laboratory Results - last 24 hr 02/06/21 02/06/21 02/06/21 17:09 17:09 17:09 WBC 7.1 RBC 3.94 Hgb 13.0 Hct 37.8 MCV 96 MCH 33 H MCHC 34 RDW 11.7 L Plt Count 234 Lymph % (Auto) 31.7 [place] % (Auto) 7.8 H Eos % (Auto) 1.1 Baso % (Auto) 0.5 Lymph # (Auto) 2.2 [place] # (Auto) 0.6 Eos # (Auto) 0.1 Baso # (Auto) 0.0 Seg Neutrophils % 58.9 Seg Neutrophils # 4.2 VBG pH 7.374 Sodium 134 L Potassium 2.8 L* Chloride 96.1 L Carbon Dioxide 25 Anion Gap 16 BUN 8 Creatinine 0.4 L Estimated GFR > 60 BUN/Creatinine Ratio 20 Glucose 287 H Calcium 8.8 Phosphorus 2.50 Magnesium 1.30 L Total Bilirubin 0.80 AST 23 ALT 28 Alkaline Phosphatase 105 Total Protein 6.8 Albumin 3.5 L Albumin/Globulin Ratio 1.1 - EKG Data -: EKG Interpreted by Me EKG shows normal: sinus rhythm Rate: normal - EKG Data 02/06/21 22:54 EKG obtained 1630 EKG interpreted by me Normal sinus rhythm rate 95 bpm normal axis prolonged QTC enlarged P waves no ST elevation nonischemic T wave pattern - Radiology Data Radiology results: report reviewed Patient Name: KATRIN HATHAWAY Gender: Female Date of : 1950 Referring Provider: JOSE MCCLENDON Organization: [facility] Accession Number: [id number] Requested Date: February 06, 2021 22:43 Report Status: Final Requested Procedure: 1 Procedure Description: CT abdomen pelvis w con Modality: CT Findings Reporting MD: Jaquan Ardon Dictation Time: February 07, 2021 00:59 Web Press Operator Helper Offset: Not available Coating Inspector Date: CT ABDOMEN AND PELVIS WITH CONTRAST HISTORY: syncope cachexia. COMPARISON: None. TECHNIQUE: CT images of the abdomen and pelvis were obtained following administr ation of intravenous contrast. All CT scans at this location are performed using CT dose reduction for ALARA by means of automated exposure control. CONTRAST: 100 ml of intravenous contrast administered. FINDINGS: Lungs/bones: Lung bases are clear Abdomen/pelvis: The liver, spleen, adrenal glands appear normal. Diffuse irregularity throughout the pancreas with calcifications. There is pancreatic ductal dilatation within the pancreatic body and head. Measures up to 7 mm in size. There is a paucity of intra-abdominal fat making visualization for inflammatory change or adenopathy limited. There is some questionable thickening of the sigmoid colon with surrounding inflammation suggestive the pelvis. Increased pelvic vascularity is suggested. Urinary bladder is markedly distended. No hydro nephrosis is seen. No CT evidence for appendicitis is definitely seen. There may be some thickening of the rectum had a gallstone is noted. Degenerative changes seen throughout spine. IMPRESSION: 1. Pancreatic abnormality with pancreatic calcifications throughout. There is pancreatic ductal dilatation duct measuring up to 7 mm. Findings could represent chronic pancreatitis however follow-up CT is recommended due to pancreatic duct dilatation. 2. Tiny gallstone. 3. Pelvic congestion with increased vascularity in the pelvis. 4. Marked bladder distention/dilatation. 5. Possible thickening of the sigmoid colon could represent colitis. There is also thickening of the distal sigmoid colon and rectum. There is a paucity of intra-abdominal fat making visualization for inflammatory change in the bowel loops limited. Signer Name: Jaquan Ardon MD Signed: 02/07/2021 12:59 AM Workstation Name: [id number] Patient Name: KATRIN HATHAWAY Gender: Female Date of : 1950 Referring Provider: JOSE MCCLENDON Organization: [facility] Accession Number: [id number] Requested Date: February 06, 2021 22:43 Report Status: Final Requested Procedure: 1 Procedure Description: CT angio chest Modality: CT Findings Reporting MD: Jaquan Ardon Dictation Time: February 07, 2021 00:56 Web Press Operator Helper Offset: Not available Coating Inspector Date: CTA CHEST WITH CONTRAST INDICATION / CLINICAL INFORMATION: syncope shortness of breath. TECHNIQUE: Axial CT images were obtained through the chest after injection of IV contrast. 3 plane MIP and/or 3D reconstructions were produced. All CT scans at this location are performed using CT dose reducti on for [employer] by means of automated exposure control. COMPARISON: None available. FINDINGS: Pulmonary arteries are patent without filling defect or evidence for PTE. No pericardial effusion is seen. Heart and aorta appear normal. No dominant mediastinal or hilar adenopathy. No focal consolidation or pleural effusion small pulmonary nodule within the right lower lung peripherally measures 3 mm ADDITIONAL FINDINGS: None. UPPER ABDOMEN: No acute findings. SKELETAL STRUCTURES: No significant osseous abnormality. IMPRESSION: 1. No CT evidence for pulmonary embolism. 2. Small 3 mm nodule in the right lower lung. INCIDENTAL PULMONARY NODULE RECOMMENDATION RECOMMENDATION: Solid Nodule size <6 mm -- Single or Multiple - Low Risk Patient: No routine follow-up - High Risk Patient: Optional CT at 12 months - Medical Decision Making 1. Recurrent syncope: Due to age, patient is at risk for arrhythmia and structural heart disease. I do suspect malnutrition poor p.o. intake are contributing factors. I I also suspect alcohol dependence. Patient is admitted for further evaluation. CT abdomen pelvis revealed findings of chronic pancreatitis. Considering ca chexia I was concerned for malignancy. CT chest angiogram negative for pulmonary embolism. 2. Hypokalemia and hypomagnesemia with prolonged QTC, p.o. potassium replacement in this emergency department. Critical care attestation.: If time is entered above; I have spent that time in minutes in the direct care of this critically ill patient, excluding procedure time. ED Disposition Clinical Impression: Hypomagnesemia, Hypokalemia, Prolonged QT interval, Syncope Disposition: OP ADMIT IP TO THIS HOSP Is pt being admited?: Yes Does the pt Need Aspirin: No Condition: Stable Instructions: Syncope (ED)
--- NOTE | 2021-02-07 02:00 | Cat Scan Report ---
CTA CHEST WITH CONTRAST INDICATION / CLINICAL INFORMATION: syncope shortness of breath. TECHNIQUE: Axial CT images were obtained through the chest after injection of IV contrast. 3 plane NV P and/or 3D reconstructions were produced. All CT scans at this location are performed using CT dose reduction for ALARA by means of automated exposure control. COMPARISON: None available. FINDINGS: Pulmonary arteries are patent without filling defect or evidence for PTE. No pericardial effusion is seen. Heart and aorta appear normal. No dominant mediastinal or hilar adenopathy. No focal consolidat ion or pleural effusion small pulmonary nodule within the right lower lung peripherally measures 3 mm ADDITIONAL FINDINGS: None. UPPER ABDOMEN: No acute findings. SKELETAL STRUCTURES: No significant osseous abnormality. IMPRESSION: 1. No CT evidence for pulmonary embolism. 2. Small 3 mm nodule in the right lower lung. INCIDENTAL PULMONARY NODULE RECOMMENDATION RECOMMENDATION: Solid Nodule size <6 mm -- Single or Multiple - Low Risk Patient: No routine follow-up - High Risk Patient: Optional CT at 12 months Note These recommendations do not apply to lung cancer screening, patients with immunosuppression, o r patients with known primary cancer. Note Newly detected indeterminate nodule in persons 35 years of age or older. Persons under the age of 35 should not receive follow-up unless there is a known primary cancer. Note Perifissural Nodule is a fissure-attached/subpleural, homogeneous, solid nodule that has smooth margins and an oval, lentiform, or triangular shape. They represent about 20% of nodules detected in lung cancer screening, are invariably benign, and do not require follow-up. Nodules 10 mm or larger (or those with suspicious features) will continue to be managed based on the size criteria. Low Risk Patient = minimal or absent history of smoking and of other known risk factors. High Risk Patient = history of smoking or of other known risk factors. Nodule dimensions are average of long and short axes, rounded to the nearest millimeter. Based on 2017 Fleischner Society Guidelines found in Radiology 2017 284:228-243. https://doi.org/10.1148/radiol.[email or web address] https://www.ncbi.nlm.nih.gov/pmc/articles/BBI7727511/ Signer Name: Jaquan Ardon MD Signed: 02/07/2021 1:56 AM Workstation Name: [id number]
--- NOTE | 2021-02-07 02:04 | Cat Scan Report ---
CT ABDOMEN AND PELVIS WITH CONTRAST HISTORY: syncope cachexia. COMPARISON: None. TECHNIQUE: CT images of the abdomen and pelvis were obtained following administration of intravenous contrast. All CT scans at this location are performed using CT dose reduction for ALARA by means of automated exposure control. CONTRAST: 100 ml of intravenous contrast administered. FINDINGS: Lungs/bones: Lung bases are clear Abdomen/pelvis: The liver, spleen, adrenal glands appear normal. Diffuse irregularity throughout the pancreas with calcifications. There is pancreatic ductal dilatation within the pancreatic body and h ead. Measures up to 7 mm in size. There is a paucity of intra-abdominal fat making visualization for infla mmatory change or adenopathy limited. There is some questionable thickening of the sigmoid colon with surrounding inflammation suggestive the pelvis. Increased pelvic vascularity is suggested. Urinary b ladder is markedly distended. No hydronephrosis is seen. No CT evidence for appendicitis is definitel y seen. There may be some thickening of the rectum had a gallstone is noted. Degenerative changes see n throughout spine. IMPRESSION: 1. Pancreatic abnormality with pancreatic calcifications throughout. There is pancreatic ductal dilat ation duct measuring up to 7 mm. Findings could represent chronic pancreatitis however follow-up CT i s recommended due to pancreatic duct dilatation. 2. Tiny gallstone. 3. Pelvic congestion with increased vascularity in the pelvis. 4. Marked bladder distention/dilatation. 5. Possible thickening of the sigmoid colon could represent colitis. There is also thickening of the distal sigmoid colon and rectum. There is a paucity of intra-abdominal fat making visualization for i nflammatory change in the bowel loops limited. Signer Name: Jaquan Ardon MD Signed: 02/07/2021 1:59 AM Workstation Name: [id number]
[2021-02-07] MEDS ORDERED: traMADol 50 MG TAB PO PRN (03:38)
[2021-02-07] MEDS ORDERED: NITROGLYCERIN 0.4 MG TAB SUBL SL PRN (03:38)
[2021-02-07] MEDS ORDERED: ACETAMINOPHEN 325 MG TAB PO PRN (03:38)
[2021-02-07] MEDS ORDERED: hydrALAZINE 20 MG/1 ML INJ IV PRN (03:41)
[2021-02-07] MEDS ORDERED: DEXTROSE 50% IN WATER (25GM) 50 ML SYRINGE IV PRN (03:42)
[2021-02-07] MEDS ORDERED: SODIUM CHLORIDE 0.9% 1000 ML 1,000 ML IV SCH (03:45)
--- NOTE | 2021-02-07 03:48 | History and Physical Report ---
History of Present Illness Date of examination: 02/07/21 Date of admission: 02/07/21 02:49 Chief complaint: Syncope Hyperglycemia History of present illness: 70 yo female with hx of HTN, DM, alcohol dependence was brought to the emergency room because syncopal episode. She has been weak and tired. She has had weight loss. She denies pain. She denies chest pain or palpitations. She denies abdominal pain, headache, leg pain. She drinks several glasses of alcohol daily. Her last drink was few days ago. She presents via EMS. Syncopal episode witnessed per fianc. She was not vaccinated for COVID-19. Past History Past Medical History: diabetes, hypertension, other (Alcohol dependence) Medications and Allergies Allergies Allergy/AdvReac Type Severity Reaction Status Date / Time No Known Allergies Allergy Verified 02/06/21 16:13 Home Medications Medication Instructions Recorded Confirmed Last Taken Type Famotidine [Pepcid] 10 mg PO BID #30 tablet 12/18/18 11/12/20 Unknown Rx Insulin Aspart (Nf) [NovoLOG 1 dose SQ AC PRN #1 pen 12/18/18 11/12/20 Unknown Rx Flexpen] Potassium Chloride [K-Dur] 10 meq PO QDAY #5 tablet 07/30/20 11/12/20 Unknown Rx Insulin Glargine [Lantus VIAL] 15 units SUB-Q QHS #30 units 11/13/20 11/12/20 Unknown Rx Insulin Regular, Human [HumuLIN R] 0 units SUB-Q ACHS 30 Days units 11/13/20 Unknown Rx Metoprolol [Lopressor TAB] 50 mg PO BID #60 tablet 11/13/20 Unknown Rx amLODIPine 10 mg PO QDAY #30 tablet 11/13/20 Unknown Rx Review of Systems Constitutional: fatigue, weakness Cardiovascular: syncope Exam - Constitutional Vitals: Temp Pulse Resp BP Pulse Ox 97.9 F 92 H 12 164/92 100 02/06/21 16:13 02/07/21 02:31 02/07/21 02:31 02/07/21 02:31 02/07/21 02:31 General appearance: Present: no acute distress, well-nourished - EENT Eyes: Present: PERRL ENT: hearing intact, clear oral mucosa - Neck Neck: Present: supple, normal ROM - Respiratory Respiratory effort: normal Respiratory: bilateral: CTA - Cardiovascular Heart Sounds: Present: S1 & S2. Absent: rub, click - Extremities Extremities: pulses symmetrical, No edema Peripheral Pulses: within normal limits - Abdominal General gastrointestinal: Present: soft, non-tender, non-distended, normal bowel sounds Female genitourinary: Present: normal - Integumentary Integumentary: Present: clear, warm, dry - Musculoskeletal Musculoskeletal: gait normal, strength equal bilaterally - Psychiatric Psychiatric: appropriate mood/affect, intact judgment & insight - Neurologic Neurologic: CNII-XII intact, moves all extremities Results - Labs CBC & Chem 7: 02/06/21 17:09 02/06/21 17:09 Labs: Laboratory Last Values WBC 7.1 K/mm3 (4.5-11.0) 02/06/21 17:09 RBC 3.94 M/mm3 (3.65-5.03) 02/06/21 17:09 Hgb 13.0 gm/dl (10.1-14.3) 02/06/21 17:09 Hct 37.8 % (30.3-42.9) 02/06/21 17:09 MCV 96 fl (79-97) 02/06/21 17:09 MCH 33 pg (28-32) H 02/06/21 17:09 MCHC 34 % (30-34) 02/06/21 17:09 RDW 11.7 % (13.2-15.2) L 02/06/21 17:09 Plt Count 234 K/mm3 (140-440) 02/06/21 17:09 Lymph % (Auto) 31.7 % (13.4-35.0) 02/06/21 17:09 [place] % (Auto) 7.8 % (0.0-7.3) H 02/06/21 17:09 Eos % (Auto) 1.1 % (0.0-4.3) 02/06/21 17:09 Baso % (Auto) 0.5 % (0.0-1.8) 02/06/21 17:09 Lymph # (Auto) 2.2 K/mm3 (1.2-5.4) 02/06/21 17:09 [place] # (Auto) 0.6 K/mm3 (0.0-0.8) 02/06/21 17:09 Eos # (Auto) 0.1 K/mm3 (0.0-0.4) 02/06/21 17:09 Baso # (Auto) 0.0 K/mm3 (0.0-0.1) 02/06/21 17:09 Seg Neutrophils % 58.9 % (40.0-70.0) 02/06/21 17:09 Seg Neutrophils # 4.2 K/mm3 (1.8-7.7) 02/06/21 17:09 VBG pH 7.374 (7.320-7.420) 02/06/21 17:09 Sodium 134 mmol/L (137-145) L 02/06/21 17:09 Potassium 2.8 mmol/L (3.6-5.0) L* 02/06/21 17:09 Chloride 96.1 mmol/L (98-107) L 02/06/21 17:09 Carbon Dioxide 25 mmol/L (22-30) 02/06/21 17:09 Anion Gap 16 mmol/L 02/06/21 17:09 BUN 8 mg/dL (7-17) 02/06/21 17:09 Creatinine 0.4 mg/dL (0.6-1.2) L 02/06/21 17:09 Estimated GFR > 60 ml/min 02/06/21 17:09 BUN/Creatinine Ratio 20 % 02/06/21 17:09 Glucose 287 mg/dL (65-100) H 02/06/21 17:09 Calcium 8.8 mg/dL (8.4-10.2) 02/06/21 17:09 Phosphorus 2.50 mg/dL (2.5-4.5) 02/06/21 17:09 Magnesium 1.30 mg/dL (1.7-2.3) L 02/06/21 17:09 Total Bilirubin 0.80 mg/dL (0.1-1.2) 02/06/21 17:09 AST 23 units/L (5-40) 02/06/21 17:09 ALT 28 units/L (7-56) 02/06/21 17:09 Alkaline Phosphatase 105 units/L (35-129) 02/06/21 17:09 Total Protein 6.8 g/dL (6.3-8.2) 02/06/21 17:09 Albumin 3.5 g/dL (3.9-5) L 02/06/21 17:09 Albumin/Globulin Ratio 1.1 % 02/06/21 17:09 - Imaging and Cardiology CT scan - abdomen: report reviewed CT scan - chest: report reviewed Assessment and Plan VTE prophylaxis?: Chemical Plan of care discussed with patient/family: Yes - Patient Problems (1) Syncope Current Visit: Yes Status: Acute Qualifiers: Plan to address problem: Admit the patient to the medical telemetry. Put the patient on 1800 kcal ADA diet. Normal saline at the rate of 100 cc/h. Aspirin 81 mg p.o. daily. Lipitor 40 mg p.o. daily. We will do the serial cardiac enzyme and echocardiogram. Consult cardiology if needed (2) Hypokalemia Current Visit: Yes Status: Acute Plan to address problem: Potassium chloride 40 mEq p.o. every 4 hours x2 dose. We repeat the BMP in the morning (3) Hypomagnesemia Current Visit: Yes Status: Acute Plan to address problem: Magnesium 2 g IV x1 dose recheck the magnesium in the morning (4) Alcohol abuse Current Visit: Yes Status: Acute Plan to address problem: We counseled the patient regarding quit drinking. We will put the patient on IV banana bag daily. Thiamine 100 mg p.o. daily. Folic acid 1 mg p.o. daily (5) HTN (hypertension) Current Visit: No Status: Chronic Plan to address problem: Metoprolol 50 mg p.o. twice daily, hydralazine 10 mg IV every 6 hours as needed (6) IDDM (insulin dependent diabetes mellitus) Current Visit: No Status: Chronic Plan to address problem: Humalog sliding scale Accu-Chek AC at bedtime with moderate dose coverage. We will continue the Lantus 15 units subcu nightly we will provide diabetic education. (7) DVT prophylaxis Current Visit: No Status: Acute Plan to address problem: Heparin 5000 units subcu every 8 hours for DVT prophylaxis. Protonix 40 mg p.o. daily for GI prophylaxis. Patient is a full code
[2021-02-07] MEDS ORDERED: THIAMINE 100 MG, FOLIC ACID 1 MG, MULTIPLE VITAMIN INJ, ADULT 10 ML in SODIUM CHLORIDE ... IV ONE (03:52)
[2021-02-07] MEDS ORDERED: MAGNESIUM SULFATE 2 GM/50 ML BAG IV ONE ×2 (03:53→10:05)
[2021-02-07] MEDS: HEPARIN 5,000 UNIT/1 ML VIAL SUB-Q SCH ×3 (05:24→22:14)
[2021-02-07 05:58] LABS: Basophils # (Auto) 0.1 K/mm3 (0.0-0.1); Basophils % (Auto) 0.8 % (0.0-1.8); Eosinophils # (Auto) 0.1 K/mm3 (0.0-0.4); Hematocrit 36.1 % (30.3-42.9); Hemoglobin 12.2 gm/dl (10.1-14.3); Lymphocytes # (Auto) 2.6 K/mm3 (1.2-5.4); Lymphocytes % (Auto) 32.6 % (13.4-35.0); Mean Corpuscular HGB Conc 34 % (30-34); Mean Corpuscular Volume 96 fl (79-97); Monocytes # (Auto) 0.6 K/mm3 (0.0-0.8); Monocytes % (Auto) 7.4 % (0.0-7.3); Platelet Count 240 K/mm3 (140-440); Red Blood Count 3.77 M/mm3 (3.65-5.03); Red Cell Distribution Width 11.8 % (13.2-15.2)
[2021-02-07 06:22] LABS: Blood Urea Nitrogen 8 mg/dL (7-17); Calcium 8.4 mg/dL (8.4-10.2); Hemolysis Index 11
[2021-02-07 06:30] LABS: BUN/Creatinine Ratio 27
[2021-02-07] MEDS ORDERED: POTASSIUM CHLORIDE ER 20 MEQ TAB PO ONE (08:07)
[2021-02-07] MEDS: POTASSIUM CHLORIDE ER 20 MEQ TAB PO SCH ×2 (08:30→10:41)
[2021-02-07] MEDS: PANTOPRAZOLE 40 MG TAB PO SCH (09:03)
[2021-02-07] MEDS: METOPROLOL TARTRATE 50 MG TAB PO SCH ×2 (09:03→22:15)
[2021-02-07] MEDS: INSULIN LISPRO 100 UNIT/ML SUB-Q SCH ×4 (09:04→22:13)
[2021-02-07] MEDS: amLODIPine 10 MG TAB PO SCH (09:05)
[2021-02-07] MEDS ORDERED: POTASSIUM CHLORIDE ER 20 MEQ TAB PO SCH (10:00)
--- NOTE | 2021-02-07 10:09 | Consultation ---
History of Present Illness Consult date: 02/07/21 Requesting physician: JUANA BLUNT Consult reason: syncope History of present illness: 70-year-old female with history of hypertension EtOH abuse was consulted for syncope. As per the patient was walking down the stairs and found her self on the floor. Does not have any symptoms prior to passing out of lightheadedness palpitations or chest pain. Patient states was down for a few seconds. Called the ambulance was brought in. Evaluation was found to be hypokalemic and hypomagnesemia. Patient has a history of EtOH abuse states drinks beer daily. Patient denies any chest pain shortness of breath or palpitations. Denies any fever chills or melena patient does states eating every day Past History Past Medical History: diabetes, hypertension, other (Alcohol dependence) Past Surgical History: denies: No surgical history Social history: alcohol abuse. denies: smoking Medications and Allergies Allergies Allergy/AdvReac Type Severity Reaction Status Date / Time No Known Allergies Allergy Verified 02/06/21 16:13 Home Medications Medication Instructions Recorded Confirmed Last Taken Type Famotidine [Pepcid] 10 mg PO BID #30 tablet 12/18/18 11/12/20 Unknown Rx Insulin Aspart (Nf) [NovoLOG 1 dose SQ AC PRN #1 pen 12/18/18 11/12/20 Unknown Rx Flexpen] Potassium Chloride [K-Dur] 10 meq PO QDAY #5 tablet 07/30/20 11/12/20 Unknown Rx Insulin Glargine [Lantus VIAL] 15 units SUB-Q QHS #30 units 11/13/20 11/12/20 Unknown Rx Insulin Regular, Human [HumuLIN R] 0 units SUB-Q ACHS 30 Days units 11/13/20 Unknown Rx Metoprolol [Lopressor TAB] 50 mg PO BID #60 tablet 11/13/20 Unknown Rx amLODIPine 10 mg PO QDAY #30 tablet 11/13/20 Unknown Rx Active Meds: Active Medications Acetaminophen (Acetaminophen 325 Mg Tab) 650 mg PO Q6H PRN PRN Reason: Pain, Mild (1-3) Amlodipine Besylate (Amlodipine 10 Mg Tab) 10 mg PO QDAY EDGAR Last Admin: 02/07/21 09:05 Dose: 10 mg Documented by: Aspirin (Aspirin 81 Mg Tab Chew) 81 mg PO QDAY EDGAR Atorvastatin Calcium (Atorvastatin 40 Mg Tab) 40 mg PO QHS [facility] Dextrose (Dextrose 50% In Water (25gm) 50 Ml Syringe) 50 ml IV Q30MIN PRN; Prot ocol PRN Reason: Hypoglycemia Heparin Sodium (Porcine) (Heparin 5,000 Unit/1 Ml Vial) 5,000 unit SUB-Q Q8HR [facility] Last Admin: 02/07/21 05:24 Dose: 5,000 unit Documented by: Hydralazine HCl (Hydralazine 20 Mg/1 Ml Inj) 10 mg IV Q6H PRN PRN Reason: Blood Pressure Sodium Chloride (Nacl 0.9% 1000 Ml) 1,000 mls @ 75 mls/hr IV DIRECT [facility] Last Admin: 02/07/21 08:40 Dose: 75 mls/hr Documented by: Magnesium Sulfate (Magnesium Sulfate 2gm/50ml) 2 gm in 50 mls @ 25 mls/hr IV ONCE ONE Stop: 02/07/21 12:04 Insulin Glargine (Insulin Glargine 100 Units/Ml) 15 units SUB-Q QHS [facility] Insulin Human Lispro (Insulin Lispro 100 Unit/Ml) 0 unit SUB-Q ACHS [facility]; Protocol Last Admin: 02/07/21 09:04 Dose: 4 unit Documented by: Metoprolol Tartrate (Metoprolol Tartrate 50 Mg Tab) 50 mg PO BID [facility] Last Admin: 02/07/21 09:03 Dose: 50 mg Documented by: Nitroglycerin (Nitroglycerin 0.4 Mg Tab Subl) 0.4 mg SL Q5M PRN PRN Reason: Chest Pain Pantoprazole Sodium (Pantoprazole 40 Mg Tab) 40 mg PO QDAY [facility] Last Admin: 02/07/21 09:03 Dose: 40 mg Documented by: Potassium Chloride (Potassium Chloride Er 20 Meq Tab) 40 meq PO Q2H [facility] Stop: 02/07/21 11:01 Last Admin: 02/07/21 08:30 Dose: 40 meq Documented by: Sodium Chloride (Sodium Chloride 0.9% 10 Ml Flush Syringe) 10 ml IV PRN PRN PRN Reason: LINE FLUSH Last Admin: 02/07/21 09:05 Dose: 10 ml Documented by: Tramadol HCl (Tramadol 50 Mg Tab) 50 mg PO Q6H PRN PRN Reason: Pain, Moderate (4-6) Review of Systems All systems: negative (As per the HPI) Physical Examination Vital Signs Temp Pulse Resp BP Pulse Ox 97.9 F 92 H 16 122/77 97 02/06/21 16:13 02/06/21 16:13 02/06/21 16:13 02/06/21 16:13 02/06/21 16:13 General appearance: cachectic HEENT: Positive: PERRL, Mucus Membranes Moist Neck: Positive: neck supple, trachea midline Cardiac: Positive: Reg Rate and Rhythm, S1/S2. Negative: Audible Murmur Lungs: Positive: clear to auscultation, Normal Breath Sounds Neuro: Positive: Grossly Intact Abdomen: Positive: Soft, Active Bowel Sounds. Negative: Tender, Distended Female genitourinary: deferred Skin: Positive: Clear Incision: Cardiac Cath Site Musculoskeletal: No Pain, Normal Range of Motion Extremities: Present: normal. Absent: edema Results 02/07/21 05:16 02/07/21 05:16 Cardiac Enzymes 02/06/21 Range/Units 17:09 AST 23 (5-40) units/L CBC 02/06/21 02/07/21 Range/Units 17:09 05:16 WBC 7.1 7.9 (4.5-11.0) K/mm3 RBC 3.94 3.77 (3.65-5.03) M/mm3 Hgb 13.0 12.2 (10.1-14.3) gm/dl Hct 37.8 36.1 (30.3-42.9) % Plt Count 234 240 (140-440) K/mm3 Lymph # (Auto) 2.2 2.6 (1.2-5.4) K/mm3 Forrest # (Auto) 0.6 0.6 (0.0-0.8) K/mm3 Eos # (Auto) 0.1 0.1 (0.0-0.4) K/mm3 Baso # (Auto) 0.0 0.1 (0.0-0.1) K/mm3 Comprehensive Metabolic Panel 02/06/21 02/07/21 Range/Units 17:09 05:16 Sodium 134 L 137 (137-145) mmol/L Potassium 2.8 L* 3.2 L (3.6-5.0) mmol/L Chloride 96.1 L 100.8 (98-107) mmol/L Carbon Dioxide 25 23 (22-30) mmol/L BUN 8 8 (7-17) mg/dL Creatinine 0.4 L 0.3 L (0.6-1.2) mg/dL Glucose 287 H 271 H (65-100) mg/dL Calcium 8.8 8.4 (8.4-10.2) mg/dL AST 23 (5-40) units/L ALT 28 (7-56) units/L Alkaline Phosphatase 105 (35-129) units/L Total Protein 6.8 (6.3-8.2) g/dL Albumin 3.5 L (3.9-5) g/dL EKG interpretations - Telemetry EKG Rhythm: Sinus Rhythm (Sinus rhythm T wave version anterior) Assessment and Plan 70-year-old female with alcohol abuse hypertension diabetes found to have hypokalemia and hypomagnesium states passing out. Check orthostatics. Probably secondary to electrolyte imbalance and alcohol use. Monitor for withdrawal. Supplement magnesium check a.m. labs and echocardiogram check orthostatics. - Patient Problems (1) Alcohol abuse Current Visit: Yes Status: Acute (2) Hypokalemia Current Visit: Yes Status: Acute (3) Hypomagnesemia Current Visit: Yes Status: Acute (4) Syncope Current Visit: Yes Status: Acute Qualifiers: Syncope type: vasovagal syncope Qualified Code(s): R55 - Syncope and collapse (5) Weakness Current Visit: No Status: Acute (6) HTN (hypertension) Current Visit: No Status: Chronic Qualifiers: Hypertension type: primary hypertension Qualified Code(s): I10 - Essential (primary) hypertension (7) IDDM (insulin dependent diabetes mellitus) Current Visit: No Status: Chronic
--- NOTE | 2021-02-07 11:00 | Event Note ---
Date: 02/07/21 Patient seen and examined This is the second IMS visit of the day Lab results reviewed Cardiology note reviewed Additional potassium supplements ordered Monitor electrolytes Patient denies any chest pain or shortness of breath and she is alert and oriented She denies alcohol abuse and states that she drinks just 1 beer a day She is not in alcohol withdrawal at this time
[2021-02-07] MEDS: INSULIN GLARGINE 100 UNITS/ML SUB-Q SCH (22:14)
[2021-02-08] MEDS: HEPARIN 5,000 UNIT/1 ML VIAL SUB-Q SCH ×3 (05:32→21:24)
[2021-02-08 05:39] LABS: Hematocrit 35.8 % (30.3-42.9); Hemoglobin 12.2 gm/dl (10.1-14.3); Mean Corpuscular HGB Conc 34 % (30-34); Mean Corpuscular Volume 95 fl (79-97); Platelet Count 283 K/mm3 (140-440); Red Blood Count 3.78 M/mm3 (3.65-5.03); Red Cell Distribution Width 11.5 % (13.2-15.2)
[2021-02-08 05:50] LABS: Blood Urea Nitrogen 4 mg/dL (7-17); Calcium 8.8 mg/dL (8.4-10.2); Hemolysis Index 5
[2021-02-08 06:09] LABS: BUN/Creatinine Ratio 20
[2021-02-08] MEDS: INSULIN LISPRO 100 UNIT/ML SUB-Q SCH ×4 (08:26→21:23)
[2021-02-08] MEDS ORDERED: POTASSIUM CHLORIDE ER 20 MEQ TAB PO NR ×2 (08:31→14:00)
[2021-02-08] MEDS: amLODIPine 10 MG TAB PO SCH (08:59)
[2021-02-08] MEDS: ASPIRIN 81 MG TAB CHEW PO SCH (08:59)
[2021-02-08] MEDS: PANTOPRAZOLE 40 MG TAB PO SCH (08:59)
[2021-02-08] MEDS: METOPROLOL TARTRATE 50 MG TAB PO SCH ×2 (08:59→21:24)
[2021-02-08] MEDS ORDERED: MAGNESIUM SULFATE 1 GM in SODIUM CHLORIDE 0.9% 50 ML IV ONE ×2 (09:30→12:00)
[2021-02-08] MEDS ORDERED: MAGNESIUM SULFATE 2 GM/50 ML BAG IV ONE (10:20)
--- NOTE | 2021-02-08 11:35 | Progress Note ---
Assessment and Plan 70-year-old female with alcohol abuse hypertension diabetes found to have hypokalemia and hypomagnesium states passing out. Patient is not orthostatic. Patient still having persistent hypokalemia and hypomagnesemia requiring IV supplementation. No arrhythmias on telemetry. Discussed with the patient detail about stopping alcohol use and increasing nutrition. - Patient Problems (1) Alcohol abuse Current Visit: Yes Status: Acute (2) Hypokalemia Current Visit: Yes Status: Acute (3) Hypomagnesemia Current Visit: Yes Status: Acute (4) Syncope Current Visit: Yes Status: Acute Qualifiers: Syncope type: vasovagal syncope Qualified Code(s): R55 - Syncope and collapse (5) Weakness Current Visit: No Status: Inactive (6) HTN (hypertension) Current Visit: No Status: Chronic Qualifiers: Hypertension type: primary hypertension Qualified Code(s): I10 - Essential (primary) hypertension (7) IDDM (insulin dependent diabetes mellitus) Current Visit: No Status: Chronic Subjective Date of service: 02/08/21 Principal diagnosis: synocpe Interval history: Patient is laying in the bed has not gotten up denies any chest pain or lightheadedness Objective Vital Signs Temp Pulse Resp BP Pulse Ox 02/08/21 11:00 18 97 02/08/21 08:59 68 123/72 02/08/21 07:47 97.3 F L 68 16 123/72 99 02/08/21 03:50 97.8 F 73 18 125/75 99 02/07/21 23:24 98.0 F 18 142/80 02/07/21 20:41 79 02/07/21 19:08 98.4 F 79 18 141/86 100 02/07/21 15:51 97.9 F 78 20 147/65 98 02/07/21 15:41 97.5 F L 78 16 120/76 99 02/07/21 14:34 74 02/07/21 14:19 18 110/65 02/07/21 14:18 93 H 18 116/73 100 02/07/21 11:57 98.2 F 73 16 147/81 99 02/07/21 11:36 18 97 - Physical Examination General: Cachectic HEENT: Positive: PERRL, Mucus Membranes Moist Neck: Positive: neck supple, trachea midline Cardiac: Positive: Reg Rate and Rhythm Lungs: Positive: clear to auscultation Neuro: Positive: Grossly Intact Abdomen: Positive: Soft, Active Bowel Sounds. Negative: Tender, Distended Skin: Positive: Clear Incision: Cardiac Cath Site Musculoskeletal: No Pain, Normal Range of Motion Extremities: Present: normal. Absent: edema - Labs and Meds CBC 02/08/21 Range/Units 05:06 WBC 8.4 (4.5-11.0) K/mm3 RBC 3.78 (3.65-5.03) M/mm3 Hgb 12.2 (10.1-14.3) gm/dl Hct 35.8 (30.3-42.9) % Plt Count 283 (140-440) K/mm3 Comprehensive Metabolic Panel 02/08/21 Range/Units 05:06 Sodium 138 (137-145) mmol/L Potassium 3.0 L (3.6-5.0) mmol/L Chloride 103.7 (98-107) mmol/L Carbon Dioxide 25 (22-30) mmol/L BUN 4 L (7-17) mg/dL Creatinine 0.2 L (0.6-1.2) mg/dL Glucose 50 L (65-100) mg/dL Calcium 8.8 (8.4-10.2) mg/dL - Imaging and Cardiology Echo: pending - Telemetry EKG Rhythm: Sinus Rhythm
--- NOTE | 2021-02-08 11:55 | Progress Note ---
Subjective Date of service: 02/08/21 Principal diagnosis: synocpe Interval history: Syncope Hyperglycemia History of present illness: 70 yo female with hx of HTN, DM, alcohol dependence was brought to the emergency room because syncopal episode. She has been weak and tired. She has had weight loss. She denies pain. She denies chest pain or palpitations. She denies abdominal pain, headache, leg pain. She drinks several glasses of alcohol daily. Her last drink was few days ago. She presents via EMS. Syncopal episode witnessed per fianc. She was not vaccinated for COVID-19. 02/08 patient is alert and oriented and she offers no specific complaints except generalized weakness. She denies any chest pain or shortness of breath. Denies fever or chills. Denies nausea or abdominal pain or dysuria. Lab results reviewed. Cardiology note reviewed Assessment and plan Syncope Likely vasovagal Cardiology following Telemetry Hypertension Fair Continue amlodipine and beta-tammie Type 2 diabetes Check A1c Accu-Cheks reviewed Continue insulin sliding scale coverage and basal insulin Hypoglycemia \Patient's blood sugar dropped to 48 this morning However patient was n.p.o. for unclear reasons No procedures were planned this morning Resume diet Monitor Accu-Cheks ? EtOH abuse Patient states that she drinks 1 beer a day and occasionally 2 beers She is not in withdrawal Hypokalemia Potassium supplements ordered Monitor electrolytes Hypomagnesemia Magnesium supplements ordered Monitor Objective - Constitutional Vitals: Vital Signs - 12hr 02/08/21 02/08/21 02/08/21 03:50 07:30 07:47 Temperature 97.8 F 97.3 F L Pulse Rate 73 66 68 Respiratory 18 16 Rate Blood Pressure 125/75 123/72 O2 Sat by Pulse 99 99 Oximetry 02/08/21 02/08/21 08:59 11:00 Temperature Pulse Rate 68 Respiratory 18 Rate Blood Pressure 123/72 O2 Sat by Pulse 97 Oximetry General appearance: Present: no acute distress, other (Thin built) - EENT Eyes: EOM intact ENT: hearing intact, clear oral mucosa - Neck Neck: supple, normal ROM, no masses or JVD - Respiratory Respiratory effort: normal Respiratory: bilateral: CTA - Cardiovascular Rhythm: regular Heart Sounds: Present: S1 & S2 Extremities: No edema - Gastrointestinal General gastrointestinal: Present: soft, non-tender Rectal Exam: deferred - Genitourinary Female genitourinary: deferred - Integumentary Integumentary: clear - Musculoskeletal Musculoskeletal: strength equal bilaterally - Neurologic Neurologic: no focal deficits - Psychiatric Psychiatric: appropriate mood/affect - Labs CBC & Chem 7: 02/08/21 05:06 02/08/21 05:06 Labs: Abnormal lab results 02/07/21 02/07/21 02/08/21 Range/Units 15:46 21:10 05:06 RDW (13.2-15.2) % Potassium 3.0 L (3.6-5.0) mmol/L BUN 4 L (7-17) mg/dL Creatinine 0.2 L (0.6-1.2) mg/dL Glucose 50 L (65-100) mg/dL POC Glucose 341 H 357 H (70-105) mg/dL Magnesium 1.40 L (1.7-2.3) mg/dL 02/08/21 02/08/21 Range/Units 05:06 07:49 RDW 11.5 L (13.2-15.2) % Potassium (3.6-5.0) mmol/L BUN (7-17) mg/dL Creatinine (0.6-1.2) mg/dL Glucose (65-100) mg/dL POC Glucose 48 L (70-105) mg/dL Magnesium (1.7-2.3) mg/dL HEART Score - HEART Score Troponin: Troponin T < 0.010 ng/mL (0.00-0.029) 02/07/21 09:04
[2021-02-08] MEDS: INSULIN GLARGINE 100 UNITS/ML SUB-Q SCH (21:23)
[2021-02-09] MEDS: HEPARIN 5,000 UNIT/1 ML VIAL SUB-Q SCH ×3 (05:23→21:45)
[2021-02-09 06:18] LABS: Blood Urea Nitrogen 4 mg/dL (7-17); Calcium 8.1 mg/dL (8.4-10.2); Hemolysis Index 32
[2021-02-09 06:19] LABS: BUN/Creatinine Ratio 13
[2021-02-09] MEDS ORDERED: MAGNESIUM SULFATE 2 GM/50 ML BAG IV ONE (09:00)
[2021-02-09] MEDS: ASPIRIN 81 MG TAB CHEW PO SCH (09:59)
[2021-02-09] MEDS: METOPROLOL TARTRATE 50 MG TAB PO SCH ×2 (10:00→22:45)
[2021-02-09] MEDS: PANTOPRAZOLE 40 MG TAB PO SCH (10:00)
[2021-02-09] MEDS: MAGNESIUM OXIDE 400 MG TAB PO SCH (10:00)
[2021-02-09] MEDS: amLODIPine 10 MG TAB PO SCH (10:01)
[2021-02-09] MEDS: INSULIN LISPRO 100 UNIT/ML SUB-Q SCH ×4 (10:02→21:49)
--- NOTE | 2021-02-09 10:43 | Discharge Summary ---
Providers - Providers Date of Admission: 02/07/21 02:49 Date of discharge: 02/09/21 Attending physician: JUANA BLUNT 02/07/21 Consult to Cardiac Rehabilitation [CONS] Routine Reason For Exam: Phase I 02/07/21 03:42 Consult to Dietitian/Nutrition [CONS] Routine Physician Instructions: Reason For Exam: Reason for Consult: Diet education 02/07/21 08:08 Consult to Physician [CONS] Routine Comment: Consulting Provider: EVERARDO LEE Physician Instructions: Reason For Exam: syncope Primary care physician: [employer] Hospitalization Condition: Stable Hospital course: Syncope Hyperglycemia History of present illness: 70 yo female with hx of HTN, DM, alcohol dependence was brought to the emergency room because syncopal episode. She has been weak and tired. She has had weight loss. She denies pain. She denies chest pain or palpitations. She denies abdominal pain, headache, leg pain. She drinks several glasses of alcohol daily. Her last drink was few days ago. She presents via EMS. Syncopal episode witnessed per fianc. She was not vaccinated for COVID-19. 02/08 patient is alert and oriented and she offers no specific complaints except generalized weakness. She denies any chest pain or shortness of breath. Denies fever or chills. Denies nausea or abdominal pain or dysuria. Lab results reviewed. Cardiology note reviewed 02/09 patient is alert and oriented and offers no specific complaints, she wants to go home, feels good. Lab results reviewed. Cardiology note reviewed and discussed with . Patient was recommended by cardiology for discharge. She is medically stable for discharge. Patient was given additional IV supplements of magnesium prior to discharge and will be discharged on p.o. magnesium supplement. Assessment and plan Syncope Likely vasovagal Cardiology consulted and note reviewed No further work-up per discussion with cardiology Hypertension Fair Continue amlodipine and beta-tammie Type 2 diabetes Check A1c Accu-Cheks reviewed Continue insulin sliding scale coverage and basal insulin Hypoglycemia \Patient's blood sugar dropped to 48 this morning However patient was n.p.o. for unclear reasons No procedures were planned this morning Resume diet Monitor Accu-Cheks ? EtOH abuse Patient states that she drinks 1 beer a day and occasionally 2 beers She is not in withdrawal Hypokalemia Potassium supplements ordered Monitor electrolytes Hypomagnesemia Magnesium supplements ordered Monitor Disposition: DC-01 TO HOME OR SELFCARE Final Discharge Diagnosis (Prints w/discharge instructions): Syncope Time spent for discharge: 38 minutes Exam - Constitutional Vitals: Temp Pulse Resp BP Pulse Ox 98.0 F 91 H 18 139/83 100 02/09/21 08:49 02/08/21 23:08 02/09/21 08:49 02/09/21 08:49 02/08/21 23:08 Plan
--- NOTE | 2021-02-09 10:45 | Progress Note ---
Assessment and Plan 70-year-old female with alcohol abuse hypertension diabetes found to have hypokalemia and hypomagnesium states passing out. Patient is not orthostatic. Patient still having persistent hypokalemia and hypomagnesemia requiring IV supplementation. No arrhythmias on telemetry. Discussed with the patient detail about stopping alcohol use and increasing nutrition. ef 45% secondary to proable eoth abuse, no arrthymia on telemtry - Patient Problems (1) Alcohol abuse Current Visit: Yes Status: Acute (2) Hypokalemia Current Visit: Yes Status: Acute (3) Hypomagnesemia Current Visit: Yes Status: Acute (4) Syncope Current Visit: Yes Status: Acute Qualifiers: Qualified Code(s): R55 - Syncope and collapse (5) Weakness Current Visit: No Status: Inactive (6) HTN (hypertension) Current Visit: No Status: Chronic Qualifiers: Qualified Code(s): I10 - Essential (primary) hypertension (7) IDDM (insulin dependent diabetes mellitus) Current Visit: No Status: Chronic Subjective Date of service: 02/09/21 Principal diagnosis: synocpe Interval history: pt denies any palpations or lightheadedness Objective Vital Signs Temp Pulse Resp BP Pulse Ox 02/09/21 08:49 98.0 F 18 139/83 02/08/21 23:08 97.9 F 91 H 20 129/79 100 02/08/21 19:46 76 02/08/21 19:17 97.6 F 82 20 117/74 100 02/08/21 16:39 97.6 F 76 18 122/78 100 02/08/21 12:00 97.9 F 72 18 126/70 100 02/08/21 11:00 18 97 - Physical Examination General: Cachectic HEENT: Positive: PERRL, Mucus Membranes Moist Neck: Positive: neck supple, trachea midline Cardiac: Positive: Reg Rate and Rhythm Lungs: Positive: clear to auscultation Neuro: Positive: Grossly Intact Abdomen: Positive: Soft, Active Bowel Sounds. Negative: Tender, Distended Skin: Positive: Clear Incision: Cardiac Cath Site Musculoskeletal: No Pain, Normal Range of Motion Extremities: Present: normal. Absent: edema - Labs and Meds Comprehensive Metabolic Panel 02/09/21 Range/Units 05:03 Sodium 134 L (137-145) mmol/L Potassium 3.7 D (3.6-5.0) mmol/L Chloride 102.7 (98-107) mmol/L Carbon Dioxide 23 (22-30) mmol/L BUN 4 L (7-17) mg/dL Creatinine 0.3 L (0.6-1.2) mg/dL Glucose 242 H (65-100) mg/dL Calcium 8.1 L (8.4-10.2) mg/dL - Imaging and Cardiology Echo: report reviewed (ef45-50% no signficant reguritations)
--- NOTE | 2021-02-09 10:47 | Progress Note ---
Subjective Date of service: 02/09/21 Principal diagnosis: synocpe Interval history: Syncope Hyperglycemia History of present illness: 70 yo female with hx of HTN, DM, alcohol dependence was brought to the emergency room because syncopal episode. She has been weak and tired. She has had weight loss. She denies pain. She denies chest pain or palpitations. She denies abdominal pain, headache, leg pain. She drinks several glasses of alcohol daily. Her last drink was few days ago. She presents via EMS. Syncopal episode witnessed per fidonita. She was not vaccinated for COVID-19. 02/08 patient is alert and oriented and she offers no specific complaints except generalized weakness. She denies any chest pain or shortness of breath. Denies fever or chills. Denies nausea or abdominal pain or dysuria. Lab results reviewed. Cardiology note reviewed 02/09 patient is alert and oriented and feels better. No specific complaints except generalized weakness. Lab results reviewed. Cardiology note reviewed Assessment and plan Syncope Likely vasovagal Cardiology following and no further recommendations or work-up per discussion with cardiology Telemetry Hypertension Fair Continue amlodipine and beta-tammie Type 2 diabetes -uncontrolled A1c 12.6 Accu-Cheks reviewed Continue insulin sliding scale coverage and basal insulin Discussed with patient She needs to go on insulin However patient needs diabetic teaching and education on self administration of insulin as she never took insulin in the past We will consult diabetes education Patient can go home tomorrow Hypoglycemia \Patient's blood sugar dropped to 48 this morning However patient was n.p.o. for unclear reasons No procedures were planned this morning Resume diet Monitor Accu-Cheks ? EtOH abuse Patient states that she drinks 1 beer a day and occasionally 2 beers She is not in withdrawal Hypokalemia Improved Potassium supplements ordered Monitor electrolytes Hypomagnesemia -severe Repeat magnesium level this morning was down to 1.2 Additional magnesium supplements ordered We will also start the patient on p.o. magnesium supplement Monitor Objective - Constitutional Vitals: Vital Signs - 12hr 02/08/21 02/09/21 23:08 08:49 Temperature 97.9 F 98.0 F Pulse Rate 91 H Respiratory 20 18 Rate Blood Pressure 129/79 139/83 O2 Sat by Pulse 100 Oximetry General appearance: Present: no acute distress - EENT Eyes: PERRL, EOM intact ENT: hearing intact, clear oral mucosa - Neck Neck: supple, normal ROM - Respiratory Respiratory effort: normal Respiratory: bilateral: CTA - Cardiovascular Rhythm: regular Heart Sounds: Present: S1 & S2 Extremities: No edema - Gastrointestinal General gastrointestinal: Present: soft, non-tender Rectal Exam: deferred - Genitourinary Female genitourinary: deferred - Integumentary Integumentary: clear - Musculoskeletal Musculoskeletal: strength equal bilaterally, generalized weakness - Neurologic Neurologic: no focal deficits, moves all extremities - Psychiatric Psychiatric: appropriate mood/affect - Labs CBC & Chem 7: 02/08/21 05:06 02/09/21 05:03 Labs: Abnormal lab results 02/08/21 02/08/21 02/08/21 Range/Units 05:06 12:02 16:42 Sodium (137-145) mmol/L BUN (7-17) mg/dL Creatinine (0.6-1.2) mg/dL Glucose (65-100) mg/dL POC Glucose 243 H 262 H (70-105) mg/dL Hemoglobin A1c 12.6 H (4-6) % Calcium (8.4-10.2) mg/dL Magnesium (1.7-2.3) mg/dL 02/08/21 02/09/21 02/09/21 Range/Units 20:24 05:03 07:47 Sodium 134 L (137-145) mmol/L BUN 4 L (7-17) mg/dL Creatinine 0.3 L (0.6-1.2) mg/dL Glucose 242 H (65-100) mg/dL POC Glucose 204 H 160 H (70-105) mg/dL Hemoglobin A1c (4-6) % Calcium 8.1 L (8.4-10.2) mg/dL Magnesium 1.20 L (1.7-2.3) mg/dL HEART Score - HEART Score Troponin: Troponin T < 0.010 ng/mL (0.00-0.029) 02/07/21 09:04
[2021-02-09] MEDS: INSULIN GLARGINE 100 UNITS/ML SUB-Q SCH (22:43)
[2021-02-10 05:43] LABS: Blood Urea Nitrogen 10 mg/dL (7-17); Calcium 9.1 mg/dL (8.4-10.2); Hemolysis Index 5
[2021-02-10 05:46] LABS: BUN/Creatinine Ratio 25
[2021-02-10] MEDS: HEPARIN 5,000 UNIT/1 ML VIAL SUB-Q SCH ×2 (06:43→13:03)
--- NOTE | 2021-02-10 08:17 | Discharge Summary ---
Providers - Providers Date of Admission: 02/07/21 02:49 Date of discharge: 02/10/21 Attending physician: TYLER GALDAMEZ 02/07/21 Consult to Cardiac Rehabilitation [CONS] Routine Reason For Exam: Phase I 02/07/21 03:42 Consult to Dietitian/Nutrition [CONS] Routine Physician Instructions: Reason For Exam: Reason for Consult: Diet education 02/07/21 08:08 Consult to Physician [CONS] Routine Comment: Consulting Provider: EVERARDO LEE Physician Instructions: Reason For Exam: syncope 02/09/21 10:55 Consult to Dietitian/Nutrition [CONS] Stat Physician Instructions: Reason For Exam: diabetic teaching Reason for Consult: Diet education Primary care physician: OPHTHALMIC TECHNOLOGIST Hospitalization Reason for admission: syncope Condition: Stable Hospital course: 70 yo female with hx of HTN, DM, alcohol dependence was brought to the emergency room because syncopal episode. Patient reportedly drinks several glasses of alcohol daily. Her last drink was few days ago [employer]. She presents via EMS. The patient was admitted with diagnosis of syncope, hyperglycemia and autonomic imbalance. Syncopal episode witnessed per fianc. She was not vaccinated for COVID-19. Hospital course: 02/08 patient is alert and oriented and she offers no specific complaints except generalized weakness. She denies any chest pain or shortness of breath. Denies fever or chills. Denies nausea or abdominal pain or dysuria. Lab results reviewed. Cardiology note reviewed 02/09 patient is alert and oriented and feels better. No specific complaints except generalized weakness. Lab results reviewed. Cardiology note reviewed 02/10/2021. Cardiology evaluated the patient and had no further recommendations or work-up. Hypertension was controlled with amlodipine and beta-tammie. Diabetes mellitus type 2 uncontrolled with a hemoglobin A1c of 12.6. Patient was initiated on Lantus insulin which will be continued as an outpatient. Patient received diabetic teaching and education on self administration of insulin. Dedicated discharge time 35 minutes. Disposition: - TO HOME OR SELFCARE Final Discharge Diagnosis (Prints w/discharge instructions): Autonomic imbalance, syncope, hypertension, uncontrolled diabetes mellitus type 2, hyperglycemia Core Measure Documentation - Palliative Care Palliative Care/ Comfort Measures: Not Applicable - Core Measures Any of the following diagnoses?: none Exam - Constitutional Vitals: Temp Pulse Resp BP Pulse Ox 97.7 F 90 16 128/74 100 02/10/21 05:09 02/10/21 05:09 02/10/21 05:09 02/10/21 05:09 02/10/21 05:09 General appearance: Present: no acute distress, well-nourished - EENT Eyes: Present: PERRL ENT: hearing intact, clear oral mucosa - Neck Neck: Present: supple, normal ROM - Respiratory Respiratory effort: normal Respiratory: bilateral: CTA - Cardiovascular Heart Sounds: Present: S1 & S2. Absent: rub, click - Extremities Extremities: pulses symmetrical, No edema Peripheral Pulses: within normal limits - Abdominal General gastrointestinal: Present: soft, non-tender, non-distended, normal bowel sounds Female genitourinary: Present: normal - Integumentary Integumentary: Present: clear, warm, dry - Musculoskeletal Musculoskeletal: gait normal, strength equal bilaterally - Psychiatric Psychiatric: appropriate mood/affect, intact judgment & insight - Neurologic Neurologic: CNII-XII intact, moves all extremities Plan Activity: advance as tolerated Weight Bearing Status: Weight Bear as Tolerated Diet: diabetic Follow up with: PRIMARY CARE, [Primary Care Provider] - 7 Days Prescriptions: amLODIPine 10 mg PO QDAY #30 tablet Aspirin [Aspirin BABY CHEW TAB] 81 mg PO QDAY #30 tab.chew Insulin Glargine [Lantus VIAL] 15 units SUB-Q QHS 30 Days units AtorvaSTATin [Lipitor] 40 mg PO QHS #30 tablet Metoprolol [Lopressor TAB] 50 mg PO BID #60 tablet Pantoprazole [Protonix TAB] 40 mg PO QDAY #30 tablet
[2021-02-10] MEDS: ASPIRIN 81 MG TAB CHEW PO SCH (09:29)
[2021-02-10] MEDS: MAGNESIUM OXIDE 400 MG TAB PO SCH (09:29)
[2021-02-10] MEDS: METOPROLOL TARTRATE 50 MG TAB PO SCH (09:29)
[2021-02-10] MEDS: PANTOPRAZOLE 40 MG TAB PO SCH (09:29)
[2021-02-10] MEDS: amLODIPine 10 MG TAB PO SCH (09:30)
[2021-02-10] MEDS: INSULIN LISPRO 100 UNIT/ML SUB-Q SCH ×2 (09:31→12:29)
[2021-02-10 12:51] VITALS: BP 145/78
--- NOTE | 2021-02-11 17:43 | Electrocardiograph Report ---
[facility] Test Date: 2021-02-09 Test Time: 08:21:02 Pat Name: KATRIN HATHAWAY Department: Room: A474 1 Gender: F Instrumentation And Controls Designer: [id number] : 1950 Requested By: ANDI RAMIREZ Order Number: [id number] Reading MD: Deshawn Mejia Measurements Intervals [place] Rate: 78 P: 73 MT: 149 QRS: 38 QRSD: 89 T: 56 QT: 416 QTc: 473 Interpretive Statements Sinus rhythm Poor R wave progress Compared to ECG 02/06/2021 16:30:24 No significant change Electronically Signed On 02-11-2021 17:42:58 EDT by Deshawn Mejia
--- NOTE | 2021-02-11 17:47 | Electrocardiograph Report ---
[facility] Test Date: 2021-02-09 Test Time: 12:33:20 Pat Name: KATRIN HATHAWAY Department: Room: A474 1 Gender: F Recoverer: YIFAN : 1950 Requested By: ANDI RAMIREZ Order Number: [id number] Reading MD: Deshawn Mejia Measurements Intervals [place] Rate: 72 P: 75 [place]: 149 QRS: 28 QRSD: 85 T: 60 QT: 432 QTc: 474 Interpretive Statements Sinus rhythm Compared to ECG 02/09/2021 08:21:02 No significant changes Electronically Signed On 02-11-2021 17:46:53 EDT by Deshawn Mejia
--- NOTE | 2021-02-12 10:41 | Electrocardiograph Report ---
[facility], [place] Test Date: 2021-02-06 Test Time: 16:30:24 Pat Name: KATRIN HATHAWAY Department: Room: A474 1 Gender: F Unishear Operator: : 1950 Requested By: JOSE MCCLENDON Order Number: [id number] Reading MD: Gianni Arnold Measurements Intervals [place] Rate: 95 P: 75 [place]: 148 QRS: -11 QRSD: 94 T: 41 QT: 390 QTc: 491 Interpretive Statements Sinus rhythm Biatrial enlargement Anterior infarct, old Compared to ECG 01/24/2021 04:57:40 Ventricular premature complex(es) no longer present Myocardial infarct finding still present Electronically Signed On 02-12-2021 10:41:03 EDT by Gianni Arnold
== END 2021-02-10 15:44 | disposition home or self-care (01) ==
LOC: ED 15:30 → 4A 02-07 02:49
PROVIDERS: ADMIT Hospitalist; ATTEND Hospitalist
DX: R55 Syncope and collapse (principal); R94.31 Abnormal electrocardiogram [ECG] [EKG]; E87.6 Hypokalemia; E83.42 Hypomagnesemia; I10 Essential (primary) hypertension; K80.80 Other cholelithiasis without obstruction; F10.129 Alcohol abuse with intoxication, unspecified; E11.65 Type 2 diabetes mellitus with hyperglycemia; Z79.4 Long term (current) use of insulin; Z79.82 Long term (current) use of aspirin
CPT/HCPCS: 36415; 71275; 74177; 80048; 80053; 82805; 82962; 83036; 83735; 84100; 84484; 85025; 85027; 93005; 93306; 96361; 96365; 96366; 96367; 96372; 99285; A9270; G0378; J1644; J3411; J3475; J7030; Q9967; J1815